=== PATIENT | female | born 1935 | race Caucasian/White ===

== ENCOUNTER 2018-02-11 15:47 | Inpatient (IN) | payer MEDICARE, MEDICAID ==
[~2018-02-11] VITALS: Ht 157.5 cm; Wt 77.6 kg
[~2018-02-11 15:47] MED LIST: ACET-868 PO; ACET650S11 PO; ARIP10TA9 PO; BACL10TA PO; CARB-92 PO; CLOP75TA15 PO; CRAN425C6 PO; DIPH25CA83 PO; DOCU-270 PO; DONE5TAB7 PO; ERGO5000 PO; GABA100C PO; HYDR-3974 PO; LEVE100023 PO; LISI40TA4 PO; MAG355OR18 PO; MAGN400O6 PO; MULT-594 PO; SENN8.6C5 PO; SIMV20TA2 PO; VALP250S22 PO; VITA1CAP9 PO; ZOLP5TAB2 PO
--- NOTE | 2018-02-11 15:55 | NUR ---
PT BIBRA FROM SNF TO ER BED 08. PER REPORT, CONGESTION AND FEVER. PT PLACED ON MONITOR. TACHY W/ FEVER OF 101.3 RECTAL PT. SATTING ON LOW 90'S. HX OF PARKINSONS AND DEMENTIA. AWAITING MD ACEVEDO.
[2018-02-11] MEDS ORDERED: ASPI-1169 PO (15:57)
[2018-02-11] MEDS ORDERED: FAMO-131 PO (15:57)
[2018-02-11] MEDS ORDERED: CARB1TAB21 PO (15:57)
[2018-02-11] MEDS ORDERED: URSO250T11 PO (15:57)
[2018-02-11] MEDS ORDERED: MULT-447 PO (15:57)
[2018-02-11] MEDS ORDERED: POLY17PO4 PO (15:57)
[2018-02-11] MEDS ORDERED: CEFEPIME 1 GM in IV D5W 50 ML IV ONE (16:00)
[2018-02-11] MEDS ORDERED: VANCOMYCIN 1 GM in IV D5W 250 ML IV ONE (16:00)
[2018-02-11] MEDS ORDERED: IV NS 0.9% 1,000 ML BAG IV ONE (16:00)
[2018-02-11] MEDS ORDERED: ACETAMINOPHEN 650 MG/SUPP.RECT RC ONE ×2 (16:00→16:03)
--- NOTE | 2018-02-11 16:00 | NUR ---
DR DIALLO AT BEDSIDE FOR EVAL.
--- NOTE | 2018-02-11 16:14 | NUR ---
IV LINE STARTED BLOOD DRAWN AND SENT TO LAB.
[2018-02-11 16:27] LABS: BASOPHILS # (AUTO) 0.1 /CMM (0.0-0.2); BASOPHILS % (AUTO) 0.9 % (0.0-2.0); HEMATOCRIT 50 % (33-45); HEMOGLOBIN 16.3 g/dL (11.5-14.8); LYMPHOCYTES # (AUTO) 0.3 /CMM (0.8-4.8); LYMPHOCYTES % (AUTO) 2.9 % (20.0-44.0); MEAN CORPUSCULAR HEMOGLOBIN 30 PG (26.0-33.0); MEAN CORPUSCULAR HGB CONC 33 g/dl (31.0-36.0); MEAN CORPUSCULAR VOLUME 93 fL (82-100); MONOCYTES # (AUTO) 0.4 /CMM (0.1-1.30); MONOCYTES % (AUTO) 3.4 % (2.0-12.0); NEUTROPHILS # (AUTO) 11.2 /CMM (1.8-8.9); NEUTROPHILS % (AUTO) 92.8 % (43.0-81.0); PLATELET COUNT (AUTO) 188 /CMM (150-450); RDW COEFFICIENT OF VARIATION 12.6 (11.5-15.0); RED BLOOD CELL COUNT(AUTO) 5.39 MIL/uL (4.0-5.2)
--- NOTE | 2018-02-11 16:28 | NUR ---
CALLED NURSING SUP REQUESTED TELE BED FOR THIS PATIENT.
[2018-02-11 16:39] LABS: CALCIUM, SERUM 9.2 mg/dL (8.5-10.1); CARBON DIOXIDE 27 mmol/L (21-32); CHLORIDE 108 mmol/L (98-107); CREATININE 1.1 mg/dL (0.6-1.3); GLUCOSE 115 mg/dL (74-106); POTASSIUM 3.9 mmol/L (3.5-5.1); SODIUM SERUM 144 mmol/L (136-145); UREA NITROGEN, BLOOD 22 mg/dL (7-18)
[2018-02-11 16:40] LABS: APPEARANCE,URINE Clear (CLEAR); BILIRUBIN,URINE Negative (NEGATIVE); BLOOD, URINE Small Ery/uL (NEGATIVE); COLOR,URINE Yellow (YELLOW); KETONES,URINE Negative (NEGATIVE); LEUKOCYTE ESTERASE ,URINE Trace (NEGATIVE); NITRITE, URINE Positive (NEGATIVE); PH,URINE 5.5 (5.0-8.0); PROTEIN,URINE Trace mg/dl (NEGATIVE); UGLUCOSE Negative (NEGATIVE); UROBILINOGEN,URINE 0.2 EU/dL (0.2)
[2018-02-11 16:41] LABS: INR 1.04 (0.85-1.15)
--- NOTE | 2018-02-11 16:43 | NUR ---
CALLED OFFICE OF DR POLO, MESSAGE SERVICE REFERRED SO TO CALL [employer] [facility].
[2018-02-11 16:50] LABS: ALANINE AMINOTRANSFERASE 16 U/L (12-78); ALBUMIN 3.7 g/dL (3.4-5.0); ALKALINE PHOSPHATASE 154 U/L (46-116); ASPARTATE AMINOTRANSFERASE 16 U/L (15-37); B-TYPE NATRIURETIC PEPTIDE 665 PG/ML (0-125); BILIRUBIN,DIRECT 0.2 mg/dL (0.0-0.2); BILIRUBIN,TOTAL 0.9 mg/dL (0.2-1.0); TOTAL PROTEIN, SERUM 7.3 g/dL (6.4-8.2)
--- NOTE | 2018-02-11 16:50 | NUR ---
[facility] CALLED FOR THIS PATIENT, INTERIOR BLOCK WIRER DR BC BETTS.
[2018-02-11 16:51] LABS: TROPONIN I < 0.017 ng/mL (0.00-0.056)
[2018-02-11 16:58] LABS: BACTERIA,URINE Many /HPF (None Seen); SQUAMOUS EPITHELIAL CELL,UR Few /HPF (None Seen)
[2018-02-11] MEDS ORDERED: IV NS 0.9% 1,000 ML IV PRN (17:13)
--- NOTE | 2018-02-11 17:13 | NUR ---
PT ADMIT TO ROOM 326-2
[2018-02-11] MEDS ORDERED: ENALAPRILAT INJ (1.25 MG/ML) 1.25 MG/ML VIAL IV STA (17:14)
[2018-02-11] MEDS ORDERED: ENALAPRILAT DIHYD. (2.5MG/ML) 1.25 MG/ML VIAL IV ONE (17:26)
[2018-02-11] MEDS ORDERED: MAG HYDROX/AL HYDROX/SIMETH 30 ML UDC PO PRN (17:30)
[2018-02-11] MEDS ORDERED: BACLOFEN (10 MG) 10 MG TABLET PO PRN (17:30)
[2018-02-11] MEDS ORDERED: ACETAMINOPHEN 325 MG TABLET PO PRN ×2 (17:30)
[2018-02-11] MEDS ORDERED: Z GUARD REMEDY 2 OZ OINT TP PRN (17:30)
[2018-02-11] MEDS ORDERED: MAGNESIUM HYDROXIDE 30 ML UDC PO PRN (17:30)
[2018-02-11] MEDS ORDERED: ONDANSETRON HCL/PF 4 MG/2 ML VIAL IVP PRN (17:30)
[2018-02-11] MEDS ORDERED: POLYETHYLENE GLYCOL 3350 17 GM POWD.PACK PO PRN (17:30)
--- NOTE | 2018-02-11 18:39 | NUR ---
DECATING MACHINE OPERATORWAREHOUSE ORDER FILLER NOTES RECEIVED PT FROM ER NURSE IN STABLE CONDITION. PT WILL BE ADMITTED FOR UTI. PT CONFUSED. NO SOB OR ACUTE SIGNS OF DISTRESS NOTED. PT ON 2 L VIA NC AND SATING WELL. TELE LEADS PLACE. PT SR ON THE TELE MONITOR WITH A HR OF 90. BELONGINGS CHECKED BY CYBER SECURITY ENGINEER. BED IN LOW LOCKED POSITION, SIDE RAILS UP X3, CALL LIGHT WITHIN REACH, BED ALARM ON. WILL ENDORSE TO NIGHTSHIFT NURSE TO COMPLETE ADMISSION
--- NOTE | 2018-02-11 19:30 | NUR ---
OIL WELL PUMPER OPENING NOTES RECEIVED PT IN BED AWAKE, RESPONSIVE AND A/O X1,CONFUSED. NO SOB OR ACUTE SIGNS OF DISTRESS NOTED. PT ON 2 L VIA NC. PT SR ON THE TELE MONITOR WITH A HR OF 89. BED IN LOW LOCKED POSITION, SIDE RAILS UP X3, CALL LIGHT WITHIN REACH, BED ALARM ON.WILL COMPLETE ADM. AND MONITOR PT. Addendum: 02/11/18 at 2020 by ANALISA RED RN F/C IN PLACE.
[2018-02-11 20:00] VITALS: BP 134/58
[2018-02-11] MEDS: LEVETIRACETAM (250 MG) 250 MG TABLET PO SCH (21:14)
[2018-02-11] MEDS: ARIPIPRAZOLE 5 MG TABLET PO SCH (21:14)
[2018-02-11] MEDS: DONEPEZIL 5 MG TABLET PO SCH (21:15)
[2018-02-11] MEDS: SENNOSIDES 8.6 MG TABLET PO SCH (21:15)
[2018-02-12 00:08] VITALS: BP 146/118
[2018-02-12 04:34] VITALS: BP 137/74
--- NOTE | 2018-02-12 07:15 | NUR ---
PER DIEM NURSE INITIAL NOTES Report received at bedside. Patient received in bed, intermittently sleeping, easily aroused. On oxygen therapy @2LPM via nasal cannula with no SOB/labored breathing. Not in any type of distress. No facial grimacing/moaning noted. Alas Cath in place. Safety measures in place. Will continue to monitor and assess patient.
--- NOTE | 2018-02-12 07:35 | NUR ---
MORTGAGE CONSULTANT CLOSING NOTES PT IN BED AWAKE, RESPONSIVE AND A/O X1,CONFUSED. NO S/S ACUTE DISTRESS NOTED. PT ON 2 L VIA NC. PT SR ON THE TELE MONITOR WITH A HR OF 89. BED IN LOW LOCKED POSITION, SIDE RAILS UP X3, CALL LIGHT WITHIN REACH, BED ALARM ON. ONGOING NS AT 75 ML/H. WILL ENDORSE TO NEXT SHIFT FOR TONY.
[2018-02-12 08:00] VITALS: BP 151/85
[2018-02-12] MEDS: DOCUSATE SODIUM 100 MG CAPSULE PO SCH ×2 (08:14→17:37)
[2018-02-12] MEDS: LEVETIRACETAM (250 MG) 250 MG TABLET PO SCH ×2 (08:14→21:34)
[2018-02-12] MEDS: MULTIVIT, IRON, MIN NO. 8, FA 1 TAB PO SCH (08:14)
[2018-02-12] MEDS: CARBIDOPA/LEVODOPA 25/100 MG 1 UDTAB PO SCH ×3 (08:14→17:37)
[2018-02-12] MEDS: FAMOTIDINE (20 MG) 20 MG TABLET PO SCH (08:14)
[2018-02-12] MEDS: GABAPENTIN 100 MG CAPSULE PO SCH ×2 (08:14→17:36)
[2018-02-12] MEDS: ASPIRIN 81 MG TAB.CHEW PO SCH (08:14)
[2018-02-12] MEDS: URSODIOL 300 MG CAPSULE PO SCH ×2 (08:48→17:36)
[2018-02-12] MEDS: CEFTRIAXONE 1 G in IV D5W 50 ML IV SCH (08:54)
[2018-02-12] MEDS ORDERED: Medication Not On Formulary EA (Cranberry Extract (Cranberry) 425 MG) PO SCH (09:00)
[2018-02-12 10:38] LABS: BASOPHILS % (AUTO) 0.2 % (0.0-2.0); EOSINOPHILS % (AUTO) 0.2 % (0.0-6.0); HEMATOCRIT 39 % (33-45); HEMOGLOBIN 13.3 g/dL (11.5-14.8); LYMPHOCYTES % (AUTO) 12.2 % (20.0-44.0); MEAN CORPUSCULAR HEMOGLOBIN 32 PG (26.0-33.0); MEAN CORPUSCULAR HGB CONC 34 g/dl (31.0-36.0); MEAN CORPUSCULAR VOLUME 94 fL (82-100); MONOCYTES % (AUTO) 12.4 % (2.0-12.0); NEUTROPHILS # (AUTO) 5.8 /CMM (1.8-8.9); PLATELET COUNT (AUTO) 127 /CMM (150-450); RDW COEFFICIENT OF VARIATION 12.8 (11.5-15.0); RED BLOOD CELL COUNT(AUTO) 4.18 MIL/uL (4.0-5.2); WHITE BLOOD COUNT (AUTO) 7.8 K/uL (4.3-11.0)
[2018-02-12 10:55] LABS: CALCIUM, SERUM 7.9 mg/dL (8.5-10.1); CARBON DIOXIDE 23 mmol/L (21-32); CHLORIDE 115 mmol/L (98-107); CREATININE 0.9 mg/dL (0.6-1.3); GLUCOSE 116 mg/dL (74-106); MAGNESIUM 1.6 mg/dL (1.8-2.4); POTASSIUM 3.3 mmol/L (3.5-5.1); SODIUM SERUM 149 mmol/L (136-145); UREA NITROGEN, BLOOD 14 mg/dL (7-18)
--- NOTE | 2018-02-12 12:51 | NUR ---
MS RN - NOTES Patient is congested, with BNP elevated and low potassium levels. MD aware and ordered to d/c IV fluids.
[2018-02-12] MEDS: Magnesium 1GM/D5W 100ML PREMIX 100 ML IV SCH ×2 (13:23→14:43)
[2018-02-12] MEDS ORDERED: POTASSIUM CHLORIDE 20 MEQ TAB.PRT.SR PO SCH (13:30)
[2018-02-12] MEDS ORDERED: K PHOS NEUTRAL 250 MG TABLET PO ONE (14:00)
[2018-02-12] MEDS ORDERED: NEUTRA PHOS 1 POWD.PACKET PO ONE (14:30)
[2018-02-12 16:00] VITALS: BP 132/82
--- NOTE | 2018-02-12 19:15 | NUR ---
MS RN CLOSING NOTES Report given at bedside. Patient remained in bed, intermittently sleeping, easily aroused. Alert&oriented x1, have episodes of spitting at staff.On antibiotics for UTI. Afebrile. IV on right hand #18g: patent and intact. On continuous oxygen therapy @2LPM via nasal cannula with no SOB/breathing noted. HOB elevated. Turned and repositioned every two hours with bony prominences offloaded. Not in any type of distress. All needs anticipated and met. Bed in locked and lowest position with call light within reach. Endorsed to oncoming shift nurse
--- NOTE | 2018-02-12 19:30 | NUR ---
MS RN OPENING NOTES PT IN BED, RESPONSIVE TO NAME, A/O X1. NO S/S ACUTE DISTRESS NOTED, AFEBRILE. PT ON 2 L VIA NC. BED IN LOW LOCKED POSITION, SIDE RAILS UP X3, CALL LIGHT WITHIN REACH, BED ALARM ON. WILL CONTINUE TO MONITOR
[2018-02-12 20:00] VITALS: BP_SYST 130; BP_SYST 151; BP_DIAS 80; BP_DIAS 83
[2018-02-12] MEDS: HYDROCODONE/APAP 5/325MG 1 EACH TABLET PO PRN (20:03)
[2018-02-12] MEDS: ARIPIPRAZOLE 5 MG TABLET PO SCH (21:33)
[2018-02-12] MEDS: SENNOSIDES 8.6 MG TABLET PO SCH (21:34)
[2018-02-12] MEDS: DONEPEZIL 5 MG TABLET PO SCH (21:34)
--- NOTE | 2018-02-13 07:09 | NUR ---
MS RN CLOSING NOTES PT IN BED SLEEPING, RESPONSIVE AND A/O X1. NO S/S ACUTE DISTRESS NOTED. BED IN LOW LOCKED POSITION, SIDE RAILS UP X3, CALL LIGHT WITHIN REACH, BED ALARM ON. WILL ENDORSE TO NEXT SHIFT FOR TONY.
[2018-02-13 08:00] VITALS: BP 143/75
[2018-02-13 08:00] LABS: CALCIUM, SERUM 8.1 mg/dL (8.5-10.1); CARBON DIOXIDE 22 mmol/L (21-32); CHLORIDE 116 mmol/L (98-107); CREATININE 0.8 mg/dL (0.6-1.3); GLUCOSE 89 mg/dL (74-106); MAGNESIUM 2.1 mg/dL (1.8-2.4); PHOSPHORUS 2.2 mg/dL (2.5-4.9); POTASSIUM 3.7 mmol/L (3.5-5.1); SODIUM SERUM 148 mmol/L (136-145); UREA NITROGEN, BLOOD 11 mg/dL (7-18)
--- NOTE | 2018-02-13 08:00 | NUR ---
m/s mica layer: md visit seen and examined by dr. rooney at this time with no new order.
[2018-02-13 08:06] LABS: EOSINOPHILS % (AUTO) 1.1 % (0.0-6.0); HEMATOCRIT 40 % (33-45); LYMPHOCYTES # (AUTO) 0.8 /CMM (0.8-4.8); LYMPHOCYTES % (AUTO) 16.9 % (20.0-44.0); MEAN CORPUSCULAR HEMOGLOBIN 31 PG (26.0-33.0); MEAN CORPUSCULAR HGB CONC 33 g/dl (31.0-36.0); MEAN CORPUSCULAR VOLUME 94 fL (82-100); MONOCYTES # (AUTO) 0.5 /CMM (0.1-1.30); MONOCYTES % (AUTO) 9.5 % (2.0-12.0); NEUTROPHILS # (AUTO) 3.5 /CMM (1.8-8.9); NEUTROPHILS % (AUTO) 71.5 % (43.0-81.0); PLATELET COUNT (AUTO) 127 /CMM (150-450); RED BLOOD CELL COUNT(AUTO) 4.18 MIL/uL (4.0-5.2); WHITE BLOOD COUNT (AUTO) 4.9 K/uL (4.3-11.0)
[2018-02-13] MEDS: CARBIDOPA/LEVODOPA 25/100 MG 1 UDTAB PO SCH ×4 (08:43→16:53)
[2018-02-13] MEDS: GABAPENTIN 100 MG CAPSULE PO SCH ×2 (08:43→16:53)
[2018-02-13] MEDS: ASPIRIN 81 MG TAB.CHEW PO SCH (08:43)
[2018-02-13] MEDS: URSODIOL 300 MG CAPSULE PO SCH ×3 (08:43→16:54)
[2018-02-13] MEDS: MULTIVIT, IRON, MIN NO. 8, FA 1 TAB PO SCH (08:44)
[2018-02-13] MEDS: DOCUSATE SODIUM 100 MG CAPSULE PO SCH ×3 (08:44→16:53)
[2018-02-13] MEDS: LEVETIRACETAM (250 MG) 250 MG TABLET PO SCH ×3 (09:00→20:12)
[2018-02-13] MEDS: FAMOTIDINE (20 MG) 20 MG TABLET PO SCH (09:14)
[2018-02-13] MEDS: CEFTRIAXONE 1 G in IV D5W 50 ML IV SCH (09:41)
--- NOTE | 2018-02-13 10:00 | NUR ---
m/s metal plater: notes am care rendered, but pt resistive to care, pt alert to self only, keeps spitting out at staff. reality orientation provided prn. also pt refused am meds this morning. turned and repositioned and incontinent care rendered. will continue to monitor.
[2018-02-13] MEDS ORDERED: IV D5W 1,000 ML IV ONE (10:30)
[2018-02-13] MEDS ORDERED: POTASSIUM PHOSPHATE MM 15 MMOL in IV D5W 250 ML IV SCH (10:30)
[2018-02-13] MEDS: POTASSIUM PHOSPHATE MM 7.5 MMOL in IV D5W 100 ML IV SCH ×2 (11:51→14:53)
--- NOTE | 2018-02-13 12:00 | NUR ---
m/s oil dispenser: notes turned and repositioned and kept comfortable. will continue to monitor.
--- NOTE | 2018-02-13 14:00 | NUR ---
m/s grape cutter: notes turned and repositioned, kept comfortable. will continue to monitor.
[2018-02-13 16:00] VITALS: BP 180/100
--- NOTE | 2018-02-13 16:00 | NUR ---
m/s water use inspector: notes pm care rendered by staff. turned and repositioned. reality orientation provided prn. will continue to monitor.
[2018-02-13] MEDS: CLONIDINE HCL 0.1 MG TABLET PO PRN (16:54)
[2018-02-13 18:19] VITALS: BP 153/89
--- NOTE | 2018-02-13 19:20 | NUR ---
m/s analytical lab analyst: notes bedside report given to sher (rn) for continuity of care. no distress. needs attended.
--- NOTE | 2018-02-13 19:20 | NUR ---
MS RN NOTES Received patient A/O X 1, on Vincent's position with O2 inhalation tolerating well @ 2LPM. With paten FC indwelling well with clear yellow urine output @ 50cc. No SOB/respiratory distress noted at this time. Kept bed low and lock, side rails X2 up. Call light within easy reach. With D5 W @ 75ml/hr infusing well 2 peripheral IV line R hand #18, SL. Will continue to monitor accordingly.
[2018-02-13] MEDS: HYDROCODONE/APAP 5/325MG 1 EACH TABLET PO PRN (19:53)
[2018-02-13 20:00] VITALS: BP 158/109
[2018-02-13] MEDS: DONEPEZIL 5 MG TABLET PO SCH (21:27)
[2018-02-13] MEDS: ARIPIPRAZOLE 5 MG TABLET PO SCH (21:28)
[2018-02-13] MEDS: SENNOSIDES 8.6 MG TABLET PO SCH (21:28)
[2018-02-14] MEDS: FAMOTIDINE (20 MG) 20 MG TABLET PO SCH (06:36)
--- NOTE | 2018-02-14 06:42 | NUR ---
MS RN CLOSING NOTES Patient asleep on Fowlers position, with patent peripheral IV line R hand G#18,SL. On O2 inhalation via NC saturating well @ 2LPM, no SOB/respiratory distress noted. On F/C indwelling well with clear yellow urine output at 350cc level, drained by CAN. All due meds given as ordered, PO meds tolerated well with apple sauce. No ASE noted. No new unsualities noted, afebrile the whole shift. Endorsed to the next shift.
--- NOTE | 2018-02-14 07:26 | NUR ---
MS RN OPENING NOTES RECEIVED PATIENT IN STABLE CONDITION. IN NO APPARENT DISTRESS. BEDSIDE RAILS ARE UPX2. BED IS LOCKED AND LOWERED. CALL LIGHT IS WITHIN REACH. IV LINE IS INTACT AND PATENT. WILL CONTINUE TO MONITOR PATIENT.
[2018-02-14 08:00] VITALS: BP 156/120
[2018-02-14 08:14] LABS: CALCIUM, SERUM 8.4 mg/dL (8.5-10.1); CARBON DIOXIDE 22 mmol/L (21-32); CHLORIDE 110 mmol/L (98-107); CREATININE 0.7 mg/dL (0.6-1.3); GLUCOSE 90 mg/dL (74-106); MAGNESIUM 2.1 mg/dL (1.8-2.4); PHOSPHORUS 2.6 mg/dL (2.5-4.9); POTASSIUM 4.1 mmol/L (3.5-5.1); SODIUM SERUM 141 mmol/L (136-145); UREA NITROGEN, BLOOD 10 mg/dL (7-18)
[2018-02-14] MEDS: CARBIDOPA/LEVODOPA 25/100 MG 1 UDTAB PO SCH ×4 (08:46→16:14)
[2018-02-14] MEDS: GABAPENTIN 100 MG CAPSULE PO SCH ×3 (08:46→16:14)
[2018-02-14] MEDS: DOCUSATE SODIUM 100 MG CAPSULE PO SCH ×3 (08:46→16:14)
[2018-02-14] MEDS: ASPIRIN 81 MG TAB.CHEW PO SCH (08:47)
[2018-02-14] MEDS: URSODIOL 300 MG CAPSULE PO SCH ×3 (08:47→16:14)
[2018-02-14] MEDS: LEVETIRACETAM (250 MG) 250 MG TABLET PO SCH ×2 (08:48→21:42)
[2018-02-14] MEDS: MULTIVIT, IRON, MIN NO. 8, FA 1 TAB PO SCH (08:48)
[2018-02-14] MEDS: CEFTRIAXONE 1 G in IV D5W 50 ML IV SCH (08:57)
[2018-02-14 09:06] LABS: HEMATOCRIT 42 % (33-45); MEAN CORPUSCULAR VOLUME 94 fL (82-100); WHITE BLOOD COUNT (AUTO) 5.5 K/uL (4.3-11.0)
[2018-02-14 09:07] LABS: BASOPHILS % (AUTO) 0.5 % (0.0-2.0); MEAN CORPUSCULAR HEMOGLOBIN 32 PG (26.0-33.0); MEAN CORPUSCULAR HGB CONC 34 g/dl (31.0-36.0); MONOCYTES % (AUTO) 9.3 % (2.0-12.0); NEUTROPHILS % (AUTO) 69.2 % (43.0-81.0); PLATELET COUNT (AUTO) 125 /CMM (150-450); RDW COEFFICIENT OF VARIATION 13.3 (11.5-15.0)
[2018-02-14] MEDS: ALBUTEROL FS 2.5 MG/0.5 ML VIAL.NEB NEB SCH ×3 (15:14→23:30)
[2018-02-14] MEDS: IPRATROPIUM NEB FS 0.5 MG/2.5 ML AMPUL.NEB NEB SCH ×3 (15:14→23:30)
[2018-02-14 16:00] VITALS: BP 154/93
--- NOTE | 2018-02-14 18:53 | NUR ---
MS RN CLOSING NOTES PATIENT IS IN STABLE CONDITION. IN NO APPARENT DISTRESS. BEDSIDE RAILS ARE UPX2. BED IS LOCKED AND LOWERED. CALL LIGHT IS WITHIN REACH. IV LINE IS INTACT AND PATENT. WILL ENDORSE CARE TO MAINTENANCE PLUMBER NURSE FOR TONY.
--- NOTE | 2018-02-14 19:20 | NUR ---
MS RN OPENING NOTES Received patient in bed in Vincent's position with O2 inhalation tolerating well @ 2LPM satting @ 94%. a & o x1 with confusion/forgetfulness. Has FC in place with clear yellow urine output, draining well. No SOB/respiratory distress noted at this time. noted with lucian lungs wheezing upon auscultation, on scheduled breathing tx as ordered. will turn/reposition per protocol. iv access to right hand, SL. bed in low and locked position, bed alarm on. side rails X2 up. Call light within easy reach. Will continue to monitor accordingly.
[2018-02-14 20:00] VITALS: BP 157/89
[2018-02-14 20:36] VITALS: BP 157/89
[2018-02-14] MEDS: SENNOSIDES 8.6 MG TABLET PO SCH (21:41)
[2018-02-14] MEDS: DONEPEZIL 5 MG TABLET PO SCH (21:41)
[2018-02-14] MEDS: ARIPIPRAZOLE 5 MG TABLET PO SCH (21:42)
--- NOTE | 2018-02-15 01:33 | NUR ---
MS RN NOTE PATIENT IS SLEEPING AT THIS TIME, NO BEHAVIOR EPISODE, NO SOB, NO ACUTE DISTRESS OR DISCOMFORT NOTED. WHEEZING OF NAIL LUNGS REMAINS THE SAME. BREATHING TX WAS GIVEN BY RT ORDERED. MONITORING CLOSELY.
--- NOTE | 2018-02-15 06:45 | NUR ---
MS RN CLOSING NOTES PATIENT SLEPT WELL @ NIGHT. A & O X 1, CONFUSED/FORGETFUL NO ACUTE CHANGES/NO SOB NOTED.WHEEZING/CONGESTION NOTED. BREATHING TX GIVEN ORDERED. BISHOP CATH IN PLACE, DRAINING CLEAR/YELLOW COLOR URINE. IV ACCESS TO RIGHT HAND, INTACT PATENT, SL. NOTED WITH BEHAVIOR EPISODE, PT TRIED TO SPIT ON NURSE'S FACE. GAVE HER SPACE TO CALM DOWN & IT HELPED BUT PT DOES YELL AT TIMES WHILE AWAKE. ASSISTED WITH TURNING & REPOSITIONING PER PROTOCOL. ALL NEEDS MET. SAFETY MEASURES IN PLACE. BED IN LOW LOCKED POSITION. CALL LIGHT WITHIN REACH. WILL ENDORSE TO AM RN FOR CONTINUITY OF CARE.
[2018-02-15] MEDS: IPRATROPIUM NEB FS 0.5 MG/2.5 ML AMPUL.NEB NEB SCH ×3 (07:28→15:44)
[2018-02-15] MEDS: ALBUTEROL FS 2.5 MG/0.5 ML VIAL.NEB NEB SCH ×3 (07:28→15:44)
--- NOTE | 2018-02-15 07:30 | NUR ---
RECEIVED PT. IN AM ALERT,BUT CONFUSED.SKIN WARM AND DRY.VS STABLE.
[2018-02-15 08:00] VITALS: BP 123/42
[2018-02-15] MEDS ORDERED: ERGOCALCIFEROL (VITAMIN D 2) 50,000 UNIT CAPSULE PO SCH (09:00)
[2018-02-15] MEDS ORDERED: predniSONE 20 MG TABLET PO SCH (09:00)
[2018-02-15] MEDS: DOCUSATE SODIUM 100 MG CAPSULE PO SCH ×2 (10:03→16:59)
[2018-02-15] MEDS: ASPIRIN 81 MG TAB.CHEW PO SCH (10:04)
[2018-02-15] MEDS: MULTIVIT, IRON, MIN NO. 8, FA 1 TAB PO SCH (10:06)
[2018-02-15] MEDS: GABAPENTIN 100 MG CAPSULE PO SCH ×2 (10:07→16:59)
[2018-02-15] MEDS: CARBIDOPA/LEVODOPA 25/100 MG 1 UDTAB PO SCH ×3 (10:07→16:59)
[2018-02-15] MEDS: LEVETIRACETAM (250 MG) 250 MG TABLET PO SCH (10:07)
[2018-02-15] MEDS: URSODIOL 300 MG CAPSULE PO SCH ×2 (10:10→16:58)
[2018-02-15] MEDS: FAMOTIDINE (20 MG) 20 MG TABLET PO SCH (10:14)
[2018-02-15] MEDS: CEFTRIAXONE 1 G in IV D5W 50 ML IV SCH (10:19)
--- NOTE | 2018-02-15 10:30 | NUR ---
PT. APPEARS PLEASED HAS QATARI SPEAKING STUDENT.
[2018-02-15] MEDS: CLONIDINE HCL 0.1 MG TABLET PO PRN (15:48)
--- NOTE | 2018-02-15 15:48 | NUR ---
RECEIVED 1600 VS BP 164/120 HR 96.PT. MEDICATED WITH CATAPRES PO.
[2018-02-15 16:00] VITALS: BP 164/120
--- NOTE | 2018-02-15 16:00 | NUR ---
DR. GOLDBERG IN TO SEE PT.HAS AUDIBLE WHEEZING.SPITS AT TIMES AND CLENCHES FIST WHEN CARE GIVEN.
--- NOTE | 2018-02-15 16:30 | NUR ---
PHOTO TAKEN OF MINIMAL SACRAL REDNESS.
--- NOTE | 2018-02-15 17:15 | NUR ---
RECHECK ON BP 180/100.HRATE 96.STILL WITH AUDIBLE WHEEZING.
--- NOTE | 2018-02-15 17:45 | NUR ---
AMBULANCE HERE FOR INTERNET TECHNOLOGY MANAGER. BP AT THIS TIME 152/76.POX 99%,HRATE 90.REPORT GIVEN TO TAP GRINDER,ALL PAPERS SIGNED INCLUDING BELONGING SHEET.PT. REPORT CALLED TO [facility].RN SPOKE WITH NICOLAS.ADDITIONALLY NICOLAS AWARE THAT HEP LOCK LEFT IN DIFFICULT STICK.AWARE OF 7 DAYS MORE OF ANTIBIOTIC.TAKEN VIA AMB. TO FACILITY.F/C IN PLACE.
== END 2018-02-15 18:07 | DRG 689 ==
LOC: ER 15:49 → TELE 17:17 → MED 02-12 08:52
PROVIDERS: ADMIT Internal Medicine; ATTEND Internal Medicine
DX: N39.0 Urinary tract infection, site not specified (principal); G92 Toxic encephalopathy; I69.354 Hemiplegia and hemiparesis following cerebral infarction affecting left non-dominant side; E87.0 Hyperosmolality and hypernatremia; E78.5 Hyperlipidemia, unspecified; G20 Parkinson's disease; M81.0 Age-related osteoporosis without current pathological fracture; F02.80 Dementia in other diseases classified elsewhere, unspecified severity, without behavioral disturbance, psychotic disturbance, mood disturbance, and anxiety; E55.9 Vitamin D deficiency, unspecified; I10 Essential (primary) hypertension; G62.9 Polyneuropathy, unspecified; F41.9 Anxiety disorder, unspecified; G25.81 Restless legs syndrome; J44.9 Chronic obstructive pulmonary disease, unspecified; F31.9 Bipolar disorder, unspecified; E86.1 Hypovolemia
CPT/HCPCS: 36415; 71045-TC; 80048-TC; 80076-TC; 81000-TC; 83605-TC; 83735-TC; 83880; 84100-TC; 84484-TC; 85025-TC; 85730-TC; 87040-TC; 87081-TC; 87086-TC; 87186-TC; A4606; J0692; J0696; J3370; J3475; J3490; J7030; J7060; J7070; Z7610

== ENCOUNTER 2018-05-17 10:12 | Inpatient (IN) | payer MEDICARE, MEDICAID ==
[~2018-05-17] VITALS: Ht 154.9 cm; Wt 78.9 kg
[~2018-05-17 10:12] MED LIST changes: -ACET650S11 PO; +ASPI-1169 PO; -CARB-92 PO; +CARB1TAB21 PO; -CLOP75TA15 PO; -DIPH25CA83 PO; +FAMO-131 PO; -HYDR-3974 PO; -LISI40TA4 PO; -MAG355OR18 PO; -MAGN400O6 PO; +MULT-447 PO; -MULT-594 PO; +POLY17PO4 PO; -SIMV20TA2 PO; +URSO250T11 PO; -VALP250S22 PO; -VITA1CAP9 PO; -ZOLP5TAB2 PO
--- NOTE | 2018-05-17 10:15 | NUR ---
PT BIB PRIVATE AMBULANCE FOR NOTED N/V X 1, FEVER AND HYPERTENSION, PT IS AAOX0 BUT WITHDRAWS TO PAIN, NOT IN RESPIRATORY DISTRESS, KEPT RESTED AND COMFORTABLE, WILL CONTINUE TO MONITOR.
[2018-05-17] MEDS ORDERED: IV NS 0.9% 1,000 ML BAG IV ONE (10:30)
[2018-05-17] MEDS ORDERED: ONDANSETRON HCL/PF 4 MG/2 ML VIAL IVP ONE (10:30)
[2018-05-17] MEDS ORDERED: ONDANSETRON HCL/PF 4 MG/2 ML VIAL ONE (10:50)
[2018-05-17 11:02] LABS: BASOPHILS % (AUTO) 0.2 % (0.0-2.0); EOSINOPHILS % (AUTO) 0.1 % (0.0-6.0); HEMATOCRIT 46 % (33-45); HEMOGLOBIN 15.3 g/dL (11.5-14.8); LYMPHOCYTES # (AUTO) 0.6 /CMM (0.8-4.8); LYMPHOCYTES % (AUTO) 7.7 % (20.0-44.0); MEAN CORPUSCULAR HGB CONC 33 g/dl (31.0-36.0); MEAN CORPUSCULAR VOLUME 96 fL (82-100); MONOCYTES # (AUTO) 0.4 /CMM (0.1-1.30); MONOCYTES % (AUTO) 4.9 % (2.0-12.0); NEUTROPHILS # (AUTO) 6.8 /CMM (1.8-8.9); NEUTROPHILS % (AUTO) 87.1 % (43.0-81.0); PLATELET COUNT (AUTO) 164 /CMM (150-450); RED BLOOD CELL COUNT(AUTO) 4.84 MIL/uL (4.0-5.2); WHITE BLOOD COUNT (AUTO) 7.8 K/uL (4.3-11.0)
[2018-05-17 11:11] LABS: APPEARANCE,URINE Clear (CLEAR); BILIRUBIN,URINE Negative (NEGATIVE); BLOOD, URINE Negative Ery/uL (NEGATIVE); COLOR,URINE Yellow (YELLOW); KETONES,URINE Trace (NEGATIVE); LEUKOCYTE ESTERASE ,URINE Negative (NEGATIVE); NITRITE, URINE Negative (NEGATIVE); PH,URINE 5.5 (5.0-8.0); PROTEIN,URINE 30 mg/dl (NEGATIVE); UGLUCOSE Negative (NEGATIVE); UROBILINOGEN,URINE 0.2 EU/dL (0.2)
--- NOTE | 2018-05-17 11:15 | NUR ---
LABS DRAWNED, URINE SAMPLE COLLECTED VIA STRAIGHT CATH, RECTAL TUBE INSERTED.
[2018-05-17 11:17] LABS: ALANINE AMINOTRANSFERASE 19 U/L (12-78); ALBUMIN 3.5 g/dL (3.4-5.0); ALKALINE PHOSPHATASE 143 U/L (46-116); ASPARTATE AMINOTRANSFERASE 21 U/L (15-37); BILIRUBIN,DIRECT 0.2 mg/dL (0.0-0.2); BILIRUBIN,TOTAL 0.6 mg/dL (0.2-1.0); CALCIUM, SERUM 8.9 mg/dL (8.5-10.1); CARBON DIOXIDE 25 mmol/L (21-32); CHLORIDE 113 mmol/L (98-107); GLUCOSE 119 mg/dL (74-106); POTASSIUM 3.6 mmol/L (3.5-5.1); SODIUM SERUM 148 mmol/L (136-145); TOTAL PROTEIN, SERUM 6.8 g/dL (6.4-8.2); UREA NITROGEN, BLOOD 22 mg/dL (7-18)
[2018-05-17 11:25] LABS: BACTERIA,URINE None seen /HPF (None Seen); MUCUS,URINE Few /LPF (None Seen); SQUAMOUS EPITHELIAL CELL,UR Moderate /HPF (None Seen); WBC,URINE 0-3 /HPF (0-3)
--- NOTE | 2018-05-17 11:44 | NUR ---
TECH AT BEDSIDE FOR XRAY.
--- NOTE | 2018-05-17 11:47 | NUR ---
PT IS WHEELED TO CT SCAN VIA [facility].
[2018-05-17] MEDS ORDERED: ATOR80TA PO (12:20)
[2018-05-17] MEDS ORDERED: CRAN3875 PO (12:20)
[2018-05-17] MEDS ORDERED: ASPI-1152 PO (12:20)
[2018-05-17] MEDS ORDERED: DONE5TAB7 PO (12:20)
[2018-05-17] MEDS ORDERED: LACT1CAP7 PO (12:20)
--- NOTE | 2018-05-17 12:26 | NUR ---
REPORT GIVEN TO JODIE MERINO. PT AWAITING TRANSFER TO FLOOR.
[2018-05-17] MEDS ORDERED: HYDR-4384 PO (12:29)
[2018-05-17] MEDS ORDERED: ALBU2.5V38 IH (12:29)
[2018-05-17] MEDS ORDERED: IPRA0.2S9 IH (12:29)
[2018-05-17] MEDS ORDERED: MAG30ORA PO (12:29)
[2018-05-17] MEDS ORDERED: CLON0.1T PO (12:29)
[2018-05-17] MEDS ORDERED: LEVOFLOXACIN 750 MG /D5W 150ML 750 MG in PREMIX 1 EA IV SCH ×2 (12:30→14:00)
[2018-05-17] MEDS ORDERED: METRONIDAZOLE 500MG/ NS 100ML 500 MG in PREMIX 1 EA IV SCH (12:30)
[2018-05-17] MEDS ORDERED: LEVOFLOXACIN 750 MG /D5W 150ML 150 ML IV ONE (12:31)
[2018-05-17] MEDS ORDERED: METRONIDAZOLE 500MG/ NS 100ML 100 ML IV ONE (12:31)
--- NOTE | 2018-05-17 12:31 | NUR ---
CALLED [facility] NEPHOROLOGY FINAL INSPECTOR SHUTTLE WAS PAGED.
[2018-05-17] MEDS ORDERED: hydrALAZINE HCL IV 20 MG VIAL ONE (13:12)
[2018-05-17] MEDS: hydrALAZINE HCL IV 20 MG VIAL IV PRN (13:16)
--- NOTE | 2018-05-17 13:19 | NUR ---
CALLED [facility] PROFESSOR OF BIOLOGICAL SCIENCES WAS REPAGED.
[2018-05-17 14:00] VITALS: BP 140/92
--- NOTE | 2018-05-17 14:00 | NUR ---
VP OF DIGITAL MARKETING NOTE PATIENT RECEIVED FROM ER IN [facility] WITH SON, CONFUSED. PATIENT HAS 20 G L HAND SL. PT TACHY READING ON TELE MONITOR 116, UNABLE TO CONFIRM CHEST PAIN. PATIENT SPEAKING IN ARMENIAN AND YELLING. FULL BODY CHECK DONE, RASHES NOTED IN PERINEAL AREA AND BRUISE AVIS. WOUND CONSULT PENDING. EDEMA PRESENT ON THE LEGS PLUS 1. PATIENT WILL BE MONITORED CLOSELY, BED IN LOWEST LOCKED POSITION, SIDE RAILS UP X 2.
[2018-05-17] MEDS ORDERED: POLYETHYLENE GLYCOL 3350 17 GM POWD.PACK PO PRN (15:00)
[2018-05-17] MEDS ORDERED: IPRATROPIUM NEB FS 0.5 MG/2.5 ML AMPUL.NEB IH PRN (15:00)
[2018-05-17] MEDS ORDERED: ACETAMINOPHEN 325 MG TABLET PO PRN (15:00)
[2018-05-17] MEDS ORDERED: MAG HYDROX/AL HYDROX/SIMETH 30 ML UDC PO PRN (15:00)
[2018-05-17] MEDS ORDERED: ERGOCALCIFEROL (VITAMIN D 2) 50,000 UNIT CAPSULE PO SCH (15:00)
[2018-05-17] MEDS ORDERED: BACLOFEN (10 MG) 10 MG TABLET PO PRN (15:00)
[2018-05-17] MEDS ORDERED: ALBUTEROL FS 2.5 MG/0.5 ML VIAL.NEB NEB PRN (15:30)
[2018-05-17 16:00] VITALS: BP_SYST 138; BP_SYST 156; BP_DIAS 55; BP_DIAS 65
--- NOTE | 2018-05-17 16:00 | NUR ---
DOOR CLOSER MECHANIC NOTE SCREAMING SUBSIDES, RN PLACED 18 G PAIGE MIDLINE
[2018-05-17] MEDS: DOCUSATE SODIUM 100 MG CAPSULE PO SCH ×2 (16:23→16:33)
[2018-05-17] MEDS: CARBIDOPA/LEVODOPA 25/100 MG 1 UDTAB PO SCH (16:23)
[2018-05-17] MEDS: GABAPENTIN 100 MG CAPSULE PO SCH (16:23)
[2018-05-17 20:00] VITALS: BP 138/65
[2018-05-17] MEDS: LEVETIRACETAM (250 MG) 250 MG TABLET PO SCH (21:06)
[2018-05-17] MEDS: DONEPEZIL 5 MG TABLET PO SCH (21:06)
[2018-05-17] MEDS: ATORVASTATIN 40 MG TABLET PO SCH (21:07)
[2018-05-17] MEDS: IV D5/ 0.9% NACL 1,000 ML IV PRN (22:57)
[2018-05-18] VITALS (9 sets, daily range): BP systolic 118–159; BP diastolic 55–95
[2018-05-18] MEDS: HYDROCODONE/APAP 5/325MG 1 EACH TABLET PO PRN (01:39)
[2018-05-18 06:33] LABS: BASOPHILS % (AUTO) 0.3 % (0.0-2.0); EOSINOPHILS % (AUTO) 0.9 % (0.0-6.0); HEMATOCRIT 41 % (33-45); HEMOGLOBIN 13.2 g/dL (11.5-14.8); LYMPHOCYTES # (AUTO) 1.1 /CMM (0.8-4.8); LYMPHOCYTES % (AUTO) 28.7 % (20.0-44.0); MEAN CORPUSCULAR HGB CONC 33 g/dl (31.0-36.0); MEAN CORPUSCULAR VOLUME 96 fL (82-100); MONOCYTES # (AUTO) 0.5 /CMM (0.1-1.30); MONOCYTES % (AUTO) 13.7 % (2.0-12.0); NEUTROPHILS # (AUTO) 2.1 /CMM (1.8-8.9); NEUTROPHILS % (AUTO) 56.4 % (43.0-81.0); PLATELET COUNT (AUTO) 133 /CMM (150-450); RED BLOOD CELL COUNT(AUTO) 4.23 MIL/uL (4.0-5.2); WHITE BLOOD COUNT (AUTO) 3.7 K/uL (4.3-11.0)
[2018-05-18 06:55] LABS: CALCIUM, SERUM 8.2 mg/dL (8.5-10.1); CARBON DIOXIDE 23 mmol/L (21-32); CHLORIDE 116 mmol/L (98-107); GLUCOSE 89 mg/dL (74-106); SODIUM SERUM 149 mmol/L (136-145); UREA NITROGEN, BLOOD 18 mg/dL (7-18)
--- NOTE | 2018-05-18 07:47 | NUR ---
TELE/RN NOTES: RECEIVED PT. IN BED W/ HOB ELEVATED . ON TELE MONITOR W/ SR 63. SPEAKS CUBAN. NON VERBAL FOR ME. NPO EXCEPT MEDS. PAIGE MID LINE W/ IFV GOING ON. HAS RECTAL TUBE. NO FACIAL GRIMACES OR MOANING NOTED. WILL CONTINUE TO MONITOR. REPORT GIVEN TO NEXT SHIFT NURSE.
--- NOTE | 2018-05-18 08:00 | NUR ---
MEDICAL MANAGER NOTES PATIENT IN BED RESTING NO SOB OR ACUTE DISTRESS NOTED. PATIENT ALERT, ORIENTED X1 . MIDLINE ON RIGHT UPPER ARM INTACT PATENT. BED IN LOW LOCKED POSITION. CALL LIGHT WITHIN REACH. WILL CONTINUE TO MONITOR.
[2018-05-18] MEDS: ASPIRIN EC 81 MG TABLET.DR PO SCH (08:14)
[2018-05-18] MEDS: FAMOTIDINE (20 MG) 20 MG TABLET PO SCH (08:14)
[2018-05-18] MEDS: MULTIVIT, IRON, MIN NO. 8, FA 1 TAB PO SCH (08:14)
[2018-05-18] MEDS: CARBIDOPA/LEVODOPA 25/100 MG 1 UDTAB PO SCH ×3 (08:14→17:07)
[2018-05-18] MEDS: GABAPENTIN 100 MG CAPSULE PO SCH ×2 (08:14→17:07)
[2018-05-18] MEDS: LACTOBACILLUS RHAMNOSUS GG 1 EACH CAP.SPRINK PO SCH (08:15)
[2018-05-18] MEDS: LEVETIRACETAM (250 MG) 250 MG TABLET PO SCH ×2 (08:15→20:55)
[2018-05-18] MEDS: DOCUSATE SODIUM 100 MG CAPSULE PO SCH ×3 (08:15→17:00)
[2018-05-18] MEDS: IV D5/ 0.9% NACL 1,000 ML IV PRN ×2 (10:25→21:05)
[2018-05-18] MEDS: NYSTATIN TOP POWDER 15 GM BOTTLE TP SCH (17:08)
--- NOTE | 2018-05-18 18:41 | NUR ---
Patient resides at [facility] [phone], has hx of dementia , CVA and Parkinson. Requires assistance with adl's. Current dc plan to return to SNF. Addendum: 05/18/18 at 1842 by MORRIS BARRIGA RN Amended: Links added.
--- NOTE | 2018-05-18 18:51 | NUR ---
FRUIT AND VEGETABLE FACTORY WORKER NOTES PATIENT IN BED RESTING NO SOB OR ACUTE DISTRESS NOTED. ALL DUE MEDICATIONS ADMINISTERED. ALL NEEDS MET. WILL ENDORSE TO PM SHIFT TONY.
--- NOTE | 2018-05-18 19:30 | NUR ---
RECIEVED ALERT TO SELF NO TEETH NOTED SHE YELLS OUT WHEN NEED TO GET NURSES ATTENTION RECTAL BAG EMPTY AT THIS TIME, CHECKED TO SEE IN PLACE .
[2018-05-18] MEDS: URSODIOL 300 MG CAPSULE PO SCH (20:55)
[2018-05-18] MEDS: DONEPEZIL 5 MG TABLET PO SCH (21:40)
[2018-05-18] MEDS: ATORVASTATIN 40 MG TABLET PO SCH (21:40)
[2018-05-18] MEDS: SENNOSIDES/DOCUSATE SODIUM 1 TAB TABLET PO SCH (21:41)
[2018-05-18] MEDS: ARIPIPRAZOLE 5 MG TABLET PO SCH (21:41)
[2018-05-19] VITALS (8 sets, daily range): BP systolic 91–161; BP diastolic 67–95
[2018-05-19] MEDS: IV D5/ 0.9% NACL 1,000 ML IV PRN ×4 (00:32→23:44)
[2018-05-19] MEDS: CLONIDINE HCL 0.1 MG TABLET PO PRN (00:37)
[2018-05-19] MEDS: NYSTATIN TOP POWDER 15 GM BOTTLE TP SCH ×2 (01:10→12:53)
--- NOTE | 2018-05-19 05:41 | NUR ---
ENDING NOTES: RECTAL BAG EMPTY, NO LEAKAGE AROUNG TUBE. MAX ASSIST WHEN BEING REPOSITIONED NYSTATIN PWD USED ON HER ROJAS AREA D/T REDNESS. SWALLOWS W/O PROBLEMS . NOTED YELLS OUT WHEN THIRSY OR NEEDING ASSIST FROM THE NURSE. GOOD EYE CONTACT
--- NOTE | 2018-05-19 07:38 | NUR ---
WOUND CARE CONSULT WOUND CARE RECEIVED CONSULT FOR PERINEAL REDNESS. WOUND CARE WILL DEFER CONSULT AND TREATMENT PLANS TO PLASTIC SURGICAL TEAM THEY ARE CURRENTLY FOLLOWING. PATIENT WITH MARIANA AT 14, ALL PRESSURE ULCER PREVENTION MEASURES ARE NOTED TO BE IN PLACE. WILL SEE PRN.
--- NOTE | 2018-05-19 08:00 | NUR ---
RN NOTES RECEIVED PATIENT IN THE BED BAHAMIAN SPEAKER, PATIENT ON 02 NC AT 2LNC. PATIENT A/O X1/2, REDIRECTABLE. PATIENT HAS NO ACUTE RESPIRATORY DISTRESS. PATIENT TOLERATED CLEAR LIQUID WELL. SCHEDULED MEDICATION ADMINISTERED. ASSIST EATING BY RELASTER. INFUSING D5NS AT 100 ML/HR ON RIGHT UPPER MIDLINE INTACT. PATIENT HAS RECTAL TUBE NO DIARRHEA NOTES, PATIENT INCONTINENT USING DIAPER, ASSIST TURN AND REPOSTION Q 2 HR. 1:1 SITTER NEXT TO THE BED FOR SAFETY. V/S STABLE. SAFETY PRECAUTION MAINTAINED ALL THE TIME.
[2018-05-19] MEDS: LEVETIRACETAM (250 MG) 250 MG TABLET PO SCH ×2 (09:28→21:33)
[2018-05-19] MEDS: GABAPENTIN 100 MG CAPSULE PO SCH ×2 (09:28→17:17)
[2018-05-19] MEDS: LACTOBACILLUS RHAMNOSUS GG 1 EACH CAP.SPRINK PO SCH (09:28)
[2018-05-19] MEDS: URSODIOL 300 MG CAPSULE PO SCH ×2 (09:28→21:30)
[2018-05-19] MEDS: DOCUSATE SODIUM 100 MG CAPSULE PO SCH ×2 (09:29→17:17)
[2018-05-19] MEDS: MULTIVIT, IRON, MIN NO. 8, FA 1 TAB PO SCH (09:29)
[2018-05-19] MEDS: FAMOTIDINE (20 MG) 20 MG TABLET PO SCH (09:29)
[2018-05-19] MEDS: CARBIDOPA/LEVODOPA 25/100 MG 1 UDTAB PO SCH ×3 (09:29→17:17)
[2018-05-19] MEDS: ASPIRIN EC 81 MG TABLET.DR PO SCH (09:29)
--- NOTE | 2018-05-19 13:00 | NUR ---
RN NOTES PATIENT STABLE, SON NEXT TO THE BED, NO ACUTE RESPIRATORY DISTRESS. ASSIST TURN AND REPOSITIONS 2 HR. PATIENT REFUSED PAIN AT THIS TIME. CONTINUED MONITORING.
--- NOTE | 2018-05-19 18:30 | NUR ---
RN NOTES PATIENT STABLE, NO ACUTE RESPIRATORY DISTRESS, V/S STABLE, SCHEDULED MEDICATION ADMINISTERED. ENDORSED ONCOMING NURSE FOR PLAN OF CARE.
--- NOTE | 2018-05-19 20:10 | NUR ---
DRYWALL FOREMAN OPENING NOTES RECEIVED REPORT FROM AM RN. PATIENT A/A/O X1 TO NAME W/ CONFUSION NOTED & MOSTLY TUNISIAN-SPEAKING. BREATHING EVEN & UNLABORED, TOLERATING O2 @ 2LPM VIA NC. NO RESPIRATORY DISTRESS NOTED. ON TELE W/ SINUS RHYTHM W/ BBB, HR 72. RIGHT UPPER ARM MIDLINE INTACT & PATENT W/ DRESSING CDI & IVF D5 NS INFUSING WELL @ 100 ML/HR. DENIES ANY PAIN OR DISCOMFORT @ THIS TIME. SAFETY MEASURES IN PLACE W/ SIDE RAILS UP & BED ALARM ON. WILL CONTINUE TO MONITOR.
[2018-05-19] MEDS: DONEPEZIL 5 MG TABLET PO SCH (21:30)
[2018-05-19] MEDS: ATORVASTATIN 40 MG TABLET PO SCH (21:30)
[2018-05-19] MEDS: SENNOSIDES/DOCUSATE SODIUM 1 TAB TABLET PO SCH (21:30)
[2018-05-19] MEDS: ARIPIPRAZOLE 5 MG TABLET PO SCH (21:30)
[2018-05-20] VITALS: BP 148/117
[2018-05-20] MEDS: NYSTATIN TOP POWDER 15 GM BOTTLE TP SCH ×2 (03:07→13:02)
[2018-05-20] MEDS: HYDROCODONE/APAP 5/325MG 1 EACH TABLET PO PRN ×2 (03:12→09:59)
[2018-05-20 04:00] VITALS: BP 163/109
--- NOTE | 2018-05-20 07:22 | NUR ---
TELE/RN OPENING NOTE THE PATIENT IS RECEIVED IN BED SLEEPING. RESPONSIVE TO VERBAL STIMULI. ALERT AND ORIENTED X1. RECEIVING OXYGEN 3L/MIN VIA NASAL CANULA. RESPIRATION REGULAR AND UNLABORED. PATIENT IN NO APPARENT DISTRESS. RIGHT UPPER ARM MIDLINE PATENT AND D5 MS INFUSING AT 100ML/HR AND NO S/S INFILTRATION NOTED. PATIENT IS ON TELE MONITOR WITH READING OF SB 57 WITH PVC. BED LOW AND LOCKED. SIDE RAILS UP X3. CALL LIIGHT WITHIN REACH. SITTER AT BEDSIDE. WILL CONTINUE TO MONITOR.
[2018-05-20 08:00] VITALS: BP 128/87
[2018-05-20] MEDS: GABAPENTIN 100 MG CAPSULE PO SCH ×2 (09:22→16:00)
[2018-05-20] MEDS: DOCUSATE SODIUM 100 MG CAPSULE PO SCH ×2 (09:22→16:00)
[2018-05-20] MEDS: ASPIRIN EC 81 MG TABLET.DR PO SCH (09:22)
[2018-05-20] MEDS: FAMOTIDINE (20 MG) 20 MG TABLET PO SCH (09:22)
[2018-05-20] MEDS: CARBIDOPA/LEVODOPA 25/100 MG 1 UDTAB PO SCH ×3 (09:22→16:00)
[2018-05-20] MEDS: LACTOBACILLUS RHAMNOSUS GG 1 EACH CAP.SPRINK PO SCH (09:24)
[2018-05-20] MEDS: MULTIVIT, IRON, MIN NO. 8, FA 1 TAB PO SCH (09:24)
[2018-05-20] MEDS: URSODIOL 300 MG CAPSULE PO SCH ×2 (09:25→21:39)
[2018-05-20] MEDS: LEVETIRACETAM (250 MG) 250 MG TABLET PO SCH ×2 (09:25→21:40)
--- NOTE | 2018-05-20 09:59 | NUR ---
TELE/RN NOTE UPON ASSESSMENT NOTED THE PATIENT WITH MODERATE PAIN ABOUT 6/10. REPOSITIONING DONE BUT INEFFECTIVE. SO PRN NORCO 5/325 MG 1 TAB PO GIVEN BY MOUTH. WILL CONTINUE TO MONITOR.
--- NOTE | 2018-05-20 11:00 | NUR ---
TELE/RN NOTE THE PATIENT VERBALIZED RELIEF FROM PAIN AND RATED PAIN 0/10.
[2018-05-20 12:00] VITALS: BP 129/95
--- NOTE | 2018-05-20 13:20 | NUR ---
TEL nurse ,seen by and exam to patient and ok to discharge patient if ok with surgical team left message to Rosalina PÉREZ of Dr.Samuel Tatum # [phone] waiting for call back
--- NOTE | 2018-05-20 13:30 | NUR ---
TEL nurse Rosalina called back and increased to soft diet and if tolerated than patient may be discharge to SNF today
--- NOTE | 2018-05-20 15:49 | NUR ---
TELE/RN NOTE PATEINT`S SON SANTIAGO IS MADE AWARE OF DISCHARGE.
[2018-05-20 16:00] VITALS: BP 136/98
[2018-05-20] MEDS: hydrALAZINE HCL IV 20 MG VIAL IV PRN (18:37)
--- NOTE | 2018-05-20 19:00 | NUR ---
TELE/RN CLOSING NOTE THE PATIENT ALERT AND ORIENTED X1. DENIES SOB. RESPIRATION REGULAR AND UNLABORED RECEIVING OXYGEN 3L/MIN VIA NASAL CANNULA AND SATURATION IS AT 96. DENIES PAIN. PATIENT IN NO APPARENT DISTRESS. PAIGE MIDLINE PATENT AND SALINE LOCKED. BLOOD PRESSURE AFTER APRESOLINE IS 167/72, PULSE 82. PATIENT IN NO APPARENT DISTRESS. BED LOW AND LOCKED. SIDE RAILS UP X3. CALL LIGHT WITHIN REACH. WILL ENDORSE TO SALESPERSON MEN'S AND BOYS' CLOTHING.
[2018-05-20 20:00] VITALS: BP 157/102
--- NOTE | 2018-05-20 20:00 | NUR ---
TELE/RN NOTES: RECEIVED PT. IN BED W/HOB ELEVATED. ON TELE MONITOR W/ SR. INCONTINENT OF B/B. W/ PAIGE MIDLINE PATENT AND INTACT W/ NO S/S OF INFECTION/INFILTRATION NOTED. W/ IVF NOTED. NO FACIAL GRIMACES OR MOANING NOTED. CALL LIGHT W/ REACH. WILL CONTINUE TO MONITOR.
--- NOTE | 2018-05-20 21:20 | NUR ---
RN NOTES DARINEL FROM [facility] CALLED AND INQUIRED REGARDING BP. STILL 157SBP AND DBP OF 102-107; WILL NOT BE ABLE TO GO AT THIS TIME. WILL CONTINUE TO MONITOR. Addendum: 05/20/18 at 2137 by DARION IZAGUIRRE RN ACCIDENTALLY CHARTED ON UNDER CHIP JOHNSTON'S NAME
--- NOTE | 2018-05-20 21:37 | NUR ---
RN NOTES RN JOSE MARIA TENA FROM [facility] CALLED AND INQUIRED REGARDING BP. STILL SBP 157 AND DBP OF 102-107; WILL NOT BE ABLE TO GO AT THIS TIME. WILL CONTINUE TO MONITOR. Addendum: 05/20/18 at 215 by DARION IZAGUIRRE RN 2145 NICKY STICK PULLER NOTIFIED THAT PATIENT WAS NOT DISCHARGED
[2018-05-20] MEDS: ATORVASTATIN 40 MG TABLET PO SCH (21:39)
[2018-05-20] MEDS: SENNOSIDES/DOCUSATE SODIUM 1 TAB TABLET PO SCH (21:40)
[2018-05-20] MEDS: DONEPEZIL 5 MG TABLET PO SCH (21:40)
[2018-05-20] MEDS: ARIPIPRAZOLE 5 MG TABLET PO SCH (21:40)
[2018-05-21] VITALS: BP 156/93
[2018-05-21] MEDS: IV D5/ 0.9% NACL 1,000 ML IV PRN (00:50)
[2018-05-21] MEDS: NYSTATIN TOP POWDER 15 GM BOTTLE TP SCH (01:25)
[2018-05-21 04:00] VITALS: BP 167/103
--- NOTE | 2018-05-21 07:25 | NUR ---
ONCOLOGY SOCIAL WORK OPENING NOTE RECEIVED PATIENT ASLEEP IN BED LOCKED IN LOWEST POSITION WITH SIDERAILS UP x2 FOR SAFETY. ALERT AND ORIENTED x1. LEBANESE SPEAKING. CALL LIGHT WITHIN REACH. SAFETY MEASURES IMPLEMENTED. ON 3L/MIN OF OXYGEN VIA NASAL CANNULA TOLERATING WELL NO SOB OR DISTRESS NOTED. NO FACIAL GRIMACING NOTED FOR PAIN. HAS RIGHT UPPER ARM MIDLINE INTACT AND PATENT NO REDNESS OR SWELLING NOTED WITH IV FLUIDS RUNNING AT 100 ML/HR TOLERATING WELL. TO MONITOR FOR HIGH BLOOD PRESSURE. WILL CONTINUE CONTINUITY OF CARE
--- NOTE | 2018-05-21 07:30 | NUR ---
TELE/RN NOTES: REPORT GIVEN TO NEXT SHIFT NURSE FOR TONY.
[2018-05-21 08:00] VITALS: BP 182/101
[2018-05-21] MEDS: LEVETIRACETAM (250 MG) 250 MG TABLET PO SCH (08:19)
[2018-05-21] MEDS: DOCUSATE SODIUM 100 MG CAPSULE PO SCH (08:19)
[2018-05-21] MEDS: LACTOBACILLUS RHAMNOSUS GG 1 EACH CAP.SPRINK PO SCH (08:19)
[2018-05-21] MEDS: CLONIDINE HCL 0.1 MG TABLET PO PRN (08:20)
[2018-05-21] MEDS: MULTIVIT, IRON, MIN NO. 8, FA 1 TAB PO SCH (08:20)
[2018-05-21] MEDS: FAMOTIDINE (20 MG) 20 MG TABLET PO SCH (08:20)
[2018-05-21] MEDS: CARBIDOPA/LEVODOPA 25/100 MG 1 UDTAB PO SCH (08:20)
[2018-05-21] MEDS: GABAPENTIN 100 MG CAPSULE PO SCH (08:20)
[2018-05-21] MEDS: URSODIOL 300 MG CAPSULE PO SCH (08:20)
[2018-05-21] MEDS: ASPIRIN EC 81 MG TABLET.DR PO SCH (08:28)
--- NOTE | 2018-05-21 08:34 | NUR ---
ABRASIVE WORKER NOTE JET GENTILE GIVEN FOR BP OF 182/101. CHARGE NURSE AWARE. AWARE Addendum: 05/21/18 at 0907 by SHAHBAZ MUNOZ RN BLOOD PRESSURE RECHECKED AFTER MEDICATION ADMINISTRATION. 157/93 P:99
[2018-05-21] MEDS ORDERED: METOPROLOL SUCCINATE 25 MG TAB.SR.24H PO SCH (10:30)
--- NOTE | 2018-05-21 10:52 | NUR ---
AERIAL ADVERTISER NOTE PER DR ALCALA PATIENT CAN BE DISCHARGED IF VITAL SIGNS STABLE
[2018-05-21 10:57] VITALS: BP 138/80
--- NOTE | 2018-05-21 12:24 | NUR ---
ASSURANCE SENIOR MANAGER INSURANCE NOTE REPORT GIVEN TO NANDO AT [facility]. ALL DUE MEDICATINS GIVEN ORDERED. ALL NURSING CARE NEEDS ATTENDED TO NEEDED. PAIGE MIDLINE REMOVED PER RN AT [facility] AND PER MD. SKIN DOCUMENTATION PLACED IN CHART. SPOKE WITH SON(SANTIAGO) TO INFORM ABOUT TRANSFER BACK TO FACILITY. ALERT AND ORIENTED X1. ESTONIAN SPEAKING. ALL DISCHARGE INSTRUCTIONS GIVEN TO RN TRADE SPECIALIST AND SON, BOTH ABLE TO RETURN TEACH BACK. LEFT VIA AMBULANCE NO BELONGINGS.
== END 2018-05-21 12:20 | DRG 394 ==
LOC: ER 10:13 → TELE1 11:55
PROVIDERS: ADMIT Internal Medicine Nephrology; ATTEND Internal Medicine
PROC: 05H633Z Insertion of Infusion Device into Left Subclavian Vein, Percutaneous Approach (ICD-10-PCS; principal; 2018-05-17)
PROC: B547ZZA Ultrasonography of Left Subclavian Vein, Guidance (ICD-10-PCS; 2018-05-17)
DX: K59.39 Other megacolon (principal); K56.7 Ileus, unspecified; E87.0 Hyperosmolality and hypernatremia; I69.354 Hemiplegia and hemiparesis following cerebral infarction affecting left non-dominant side; A08.4 Viral intestinal infection, unspecified; G20 Parkinson's disease; L30.4 Erythema intertrigo; F02.80 Dementia in other diseases classified elsewhere, unspecified severity, without behavioral disturbance, psychotic disturbance, mood disturbance, and anxiety; R13.10 Dysphagia, unspecified; I11.0 Hypertensive heart disease with heart failure; G25.81 Restless legs syndrome; K21.9 Gastro-esophageal reflux disease without esophagitis; G40.909 Epilepsy, unspecified, not intractable, without status epilepticus; E78.5 Hyperlipidemia, unspecified; Z87.440 Personal history of urinary (tract) infections; F29 Unspecified psychosis not due to a substance or known physiological condition; F31.9 Bipolar disorder, unspecified; M81.0 Age-related osteoporosis without current pathological fracture; D25.9 Leiomyoma of uterus, unspecified; Z79.82 Long term (current) use of aspirin; Z79.899 Other long term (current) drug therapy; K83.8 Other specified diseases of biliary tract; Z68.32 Body mass index [BMI] 32.0-32.9, adult; E66.9 Obesity, unspecified; D35.01 Benign neoplasm of right adrenal gland; D35.02 Benign neoplasm of left adrenal gland; K80.20 Calculus of gallbladder without cholecystitis without obstruction; L30.9 Dermatitis, unspecified; M62.462 Contracture of muscle, left lower leg; M62.461 Contracture of muscle, right lower leg
CPT/HCPCS: 36415; 36569; 71045-TC; 74018; 80048-TC; 80076-TC; 81000-TC; 83605-TC; 84484-TC; 85025-TC; 85730-TC; 87040-TC; 87045-TC; 87081-TC; 87086-TC; 87400; 89055; A4216; A4606; G0378; J0360; J1956; J2405; J3490; J7030; J7042; Z7610

== ENCOUNTER 2019-05-29 13:34 | Inpatient (IN) | payer MEDICARE, MEDICAID ==
[~2019-05-29] VITALS: Ht 157.5 cm; Wt 76.2 kg
[~2019-05-29 13:34] MED LIST changes: +ALBU2.5V38 IH; +ASPI-1152 PO; -ASPI-1169 PO; +ATOR80TA PO; +CLON0.1T PO; +CRAN3875 PO; +HYDR-4384 PO; +IPRA0.2S9 IH; +LACT1CAP7 PO; +MAG30ORA PO
--- NOTE | 2019-05-29 13:34 | NUR ---
BIB RA 88 FROM [facility] DUE TO AMS,NARCAN GIVEN INTRANASALLY BY EMS,RR WENT UP FROM 6 TO 16 AND EYES OPENNED AND EYEBALLS STARTED MOVING, PT TO BED 5, -SOB, NAD NOTED, VSS, PENDING MD ACEVEDO
[2019-05-29] MEDS ORDERED: IV NS 0.9% 500 ML BAG IV ONE (15:00)
[2019-05-29 15:06] LABS: BASOPHILS % (AUTO) 0.3 % (0.0-2.0); EOSINOPHILS % (AUTO) 0.8 % (0.0-6.0); HEMATOCRIT 37 % (33-45); HEMOGLOBIN 11.7 g/dL (11.5-14.8); LYMPHOCYTES # (AUTO) 1.1 /CMM (0.8-4.8); LYMPHOCYTES % (AUTO) 18.6 % (20.0-44.0); MEAN CORPUSCULAR HGB CONC 32 g/dl (31.0-36.0); MEAN CORPUSCULAR VOLUME 94 fL (82-100); MONOCYTES # (AUTO) 0.5 /CMM (0.1-1.30); MONOCYTES % (AUTO) 9.2 % (2.0-12.0); NEUTROPHILS # (AUTO) 4.1 /CMM (1.8-8.9); NEUTROPHILS % (AUTO) 71.1 % (43.0-81.0); PLATELET COUNT (AUTO) 346 /CMM (150-450); RED BLOOD CELL COUNT(AUTO) 3.93 MIL/uL (4.0-5.2); WHITE BLOOD COUNT (AUTO) 5.7 K/uL (4.3-11.0)
[2019-05-29 15:16] LABS: CALCIUM, SERUM 8.7 mg/dL (8.5-10.1); POTASSIUM 3.9 mmol/L (3.5-5.1)
[2019-05-29 15:21] LABS: ALBUMIN 2.1 g/dL (3.4-5.0); BILIRUBIN,DIRECT 1.1 mg/dL (0.0-0.2); BILIRUBIN,TOTAL 1.5 mg/dL (0.2-1.0); TOTAL PROTEIN, SERUM 5.9 g/dL (6.4-8.2)
--- NOTE | 2019-05-29 15:30 | NUR ---
PT BACK FROM CT
--- NOTE | 2019-05-29 15:38 | NUR ---
CALLED FOR TELE BED & TURNED IN MOVE SHEET TO ADMITTING.
[2019-05-29 15:54] LABS: APPEARANCE,URINE Cloudy (CLEAR); BILIRUBIN,URINE Negative (NEGATIVE); BLOOD, URINE Negative Ery/uL (NEGATIVE); COLOR,URINE Yellow (YELLOW); KETONES,URINE Negative (NEGATIVE); LEUKOCYTE ESTERASE ,URINE Small (NEGATIVE); NITRITE, URINE Negative (NEGATIVE); PROTEIN,URINE Trace mg/dl (NEGATIVE); UGLUCOSE Negative (NEGATIVE); UROBILINOGEN,URINE 0.2 EU/dL (0.2)
[2019-05-29 16:08] LABS: BACTERIA,URINE Few /HPF (None Seen); RBC,URINE 0-2 /HPF (0-2); SQUAMOUS EPITHELIAL CELL,UR Few /HPF (None Seen); WBC,URINE 51-80 /HPF (0-3); YEAST,URINE Few /HPF (None Seen)
[2019-05-29] MEDS ORDERED: CLOP75TA15 PO (16:10)
[2019-05-29] MEDS ORDERED: PANT40TA2 PO (16:10)
[2019-05-29] MEDS ORDERED: CALC300T4 PO (16:10)
[2019-05-29] MEDS ORDERED: FAMO1TAB29 PO (16:10)
[2019-05-29] MEDS ORDERED: VALS80TA2 PO (16:10)
[2019-05-29] MEDS ORDERED: AMLO10TA4 PO (16:10)
[2019-05-29] MEDS ORDERED: MAGN400O6 PO (16:10)
[2019-05-29] MEDS ORDERED: CEFTRIAXONE 1GM BAG (ER ONLY) 1 GM/50 ML PIGGYBACK IV ONE (17:00)
--- NOTE | 2019-05-29 17:29 | NUR ---
CALLED FOR MS BED
[2019-05-29] MEDS ORDERED: CLONIDINE HCL 0.1 MG TABLET PO PRN (17:30)
[2019-05-29] MEDS ORDERED: HYDROCODONE/APAP 5/325MG 1 EACH TABLET PO PRN (17:30)
[2019-05-29] MEDS ORDERED: MAG HYDROX/AL HYDROX/SIMETH 30 ML UDC PO PRN ×2 (17:30→18:00)
[2019-05-29] MEDS ORDERED: MAGNESIUM HYDROXIDE 30 ML UDC PO PRN ×2 (17:30→18:00)
[2019-05-29] MEDS ORDERED: IPRATROPIUM NEB FS 0.5 MG/2.5 ML AMPUL.NEB IH PRN (17:30)
[2019-05-29] MEDS ORDERED: ALBUTEROL FS 2.5 MG/3 ML VIAL.NEB IH PRN (17:30)
[2019-05-29] MEDS ORDERED: ACETAMINOPHEN 325 MG TABLET PO PRN ×2 (17:30→18:00)
[2019-05-29] MEDS ORDERED: BACLOFEN (10 MG) 10 MG TABLET PO PRN (17:30)
[2019-05-29] MEDS ORDERED: POLYETHYLENE GLYCOL 3350 17 GM POWD.PACK PO PRN (17:30)
[2019-05-29] MEDS ORDERED: CEFTRIAXONE 1GM BAG (ER ONLY) 50 ML IV ONE (17:42)
--- NOTE | 2019-05-29 17:59 | NUR ---
GOT BED 312-2
[2019-05-29] MEDS ORDERED: Z GUARD REMEDY 2 OZ OINT TP PRN (18:00)
[2019-05-29] MEDS ORDERED: ONDANSETRON HCL/PF 4 MG/2 ML VIAL IVP PRN (18:00)
--- NOTE | 2019-05-29 18:05 | NUR ---
REPORT GIVEN TO LOGAN MERINOCAMPUS RECEPTIONIST NURSE FOR TONY; PT WILL BE TRANSPORTED TO 3RD FLOOR
--- NOTE | 2019-05-29 18:57 | NUR ---
PT TRANSPORTED TO 3RD FLOOR
--- NOTE | 2019-05-29 19:05 | NUR ---
BUSINESS SERVICES VICE PRESIDENT NOTE RECEIVED PT IN STABLE CONDITION A/O X2, CURRENTLY IN BED WITH SON AT BEDSIDE. NO SIGNS OF SOB OR DISTRESS, NO INDICATION OF PAIN OR N/V. IV IN RFA #22, IN PLACE. ALL CURRENT NEEDS ATTENDED TO. BED LOW, LOCKED, UPPER RAILS UP AND CALL LIGHT WITHIN REACH. WILL CONT. TO MONITOR.
--- NOTE | 2019-05-29 19:30 | NUR ---
DRIP MOLDER NOTE PT BODY ASSESSED, WITH PHOTOS TAKEN IN CHART. ALL BELONGINGS ACCOUNTED AND SIGNED FOR. PER SON, PT IS TO BE DNR.
[2019-05-29] MEDS: IV D5/0.45 NACL 1,000 ML IV PRN (19:49)
[2019-05-29 21:07] VITALS: BP 102/54
[2019-05-29] MEDS: DONEPEZIL 5 MG TABLET PO SCH (21:27)
[2019-05-29] MEDS: SENNOSIDES/DOCUSATE SODIUM 1 TAB TABLET PO SCH (21:27)
[2019-05-29] MEDS: LEVETIRACETAM (250 MG) 250 MG TABLET PO SCH (21:27)
[2019-05-30] VITALS: BP 136/104
[2019-05-30 04:04] VITALS: BP 157/99
--- NOTE | 2019-05-30 06:07 | NUR ---
JOB CHECKER NOTE PT REMAINS IN STABLE CONDITION A/O X2, CURRENTLY IN BED WITH SON AT BEDSIDE. NO SIGNS OF SOB OR DISTRESS, NO INDICATION OF PAIN OR N/V. IV IN RFA #22, IN PLACE. TELE MONITOR: SINUS W/ BBB 61. ALL CURRENT NEEDS ATTENDED TO. BED LOW, LOCKED, UPPER RAILS UP AND CALL LIGHT WITHIN REACH. WILL ENDORSE TO NEXT SHIFT FOR TONY.
--- NOTE | 2019-05-30 07:15 | NUR ---
DISASTER RECOVERY SPECIALIST NOTE PATIENT RESTING IN BED, NO RESPIRATORY DISTRESS, NO C/O PAIN AT THIS TIME. PATIENT ON LEATHER SOFTENER SR 66. SKIN WARM TO TOUCH, IV D5 1/2 INFUSING AT 75ML/HR, INTACT AND PATENT ON THE RFA #22G, PATIENT'S NEEDS ATTENDED, BED ON LOWEST LOCKED POSITION, CALL LIGHT WITHIN REACH. WILL CONTINUE TO MONITOR.
[2019-05-30 07:45] LABS: BASOPHILS % (AUTO) 0.6 % (0.0-2.0); EOSINOPHILS % (AUTO) 1.8 % (0.0-6.0); HEMATOCRIT 38 % (33-45); LYMPHOCYTES # (AUTO) 1.2 /CMM (0.8-4.8); LYMPHOCYTES % (AUTO) 22.2 % (20.0-44.0); MEAN CORPUSCULAR HGB CONC 32 g/dl (31.0-36.0); MEAN CORPUSCULAR VOLUME 97 fL (82-100); MONOCYTES # (AUTO) 0.6 /CMM (0.1-1.30); MONOCYTES % (AUTO) 11.5 % (2.0-12.0); NEUTROPHILS # (AUTO) 3.5 /CMM (1.8-8.9); NEUTROPHILS % (AUTO) 63.9 % (43.0-81.0); PLATELET COUNT (AUTO) 261 /CMM (150-450); RED BLOOD CELL COUNT(AUTO) 3.88 MIL/uL (4.0-5.2); WHITE BLOOD COUNT (AUTO) 5.4 K/uL (4.3-11.0)
[2019-05-30 08:00] VITALS: BP 167/88
[2019-05-30 08:09] LABS: CALCIUM, SERUM 8.4 mg/dL (8.5-10.1); CREATININE 0.9 mg/dL (0.6-1.3); MAGNESIUM 1.9 mg/dL (1.8-2.4); PHOSPHORUS 2.6 mg/dL (2.5-4.9); POTASSIUM 4.2 mmol/L (3.5-5.1)
[2019-05-30] MEDS: ASPIRIN EC 81 MG TABLET.DR PO SCH (08:18)
[2019-05-30] MEDS: AMLODIPINE BESYLATE 10 MG TABLET PO SCH (08:18)
[2019-05-30] MEDS: DOCUSATE SODIUM 100 MG CAPSULE PO SCH ×2 (08:18→16:14)
[2019-05-30] MEDS: CLOPIDOGREL BISULFATE 75 MG TABLET PO SCH (08:19)
[2019-05-30] MEDS: LEVETIRACETAM (250 MG) 250 MG TABLET PO SCH ×2 (08:19→21:39)
[2019-05-30] MEDS: PANTOPRAZOLE 40 MG TABLET.DR PO SCH (08:19)
[2019-05-30] MEDS: GABAPENTIN 100 MG CAPSULE PO SCH ×2 (08:19→16:14)
[2019-05-30] MEDS: CARBIDOPA/LEVODOPA 25/100 MG 1 UDTAB PO SCH ×3 (08:19→16:14)
[2019-05-30] MEDS: ATORVASTATIN 40 MG TABLET PO SCH (08:36)
[2019-05-30] MEDS ORDERED: ATORVASTATIN 40 MG TABLET PO SCH (09:00)
[2019-05-30] MEDS: URSODIOL 300 MG CAPSULE PO SCH ×2 (09:28→16:14)
[2019-05-30 16:00] VITALS: BP 125/74
--- NOTE | 2019-05-30 18:40 | NUR ---
M/S RN NOTES PATIENT RESTING IN BED, NO RESPIRATORY DISTRESS, NO C/O PAIN AT THIS TIME. PATIENT'S SKIN WARM TO TOUCH. PATIENT'S NEEDS ATTENDED. BED ON LOWEST LOCKED POSITION, CALL LIGHT WITHIN REACH. WILL ENDORSE TO ONCOMING NURSE.
[2019-05-30] MEDS: CEFTRIAXONE 1 G in IV D5W 50 ML IV SCH (18:42)
--- NOTE | 2019-05-30 20:31 | NUR ---
MS RN NOTES RECEIVED PATIENT ASLEEP IN BED WITH NO DISTRESS NOTED. CALL LIGHT WITHIN REACH. PERIPHERAL LINE INFILTRATED, UNABLE TO ESTABLISH LINE. CALLED NEPHRO GROUP TO OBTAIN MIDLINE ORDER. AWAITING CALL BACK FROM INTERNAL AFFAIRS INVESTIGATOR MD. ROOM FREE OF CLUTTER AND BELONGINGS KEPT NEAR BEDSIDE. BED IN LOW LOCK SETTING WITH BED ALARM ON AND FUNCTIONING PROPERLY. WILL CONTINUE TO MONITOR.
[2019-05-30] MEDS: DONEPEZIL 5 MG TABLET PO SCH (21:39)
[2019-05-30] MEDS: SENNOSIDES/DOCUSATE SODIUM 1 TAB TABLET PO SCH (21:39)
[2019-05-30] MEDS: IV D5/0.45 NACL 1,000 ML IV PRN (21:39)
--- NOTE | 2019-05-31 07:15 | NUR ---
MS RN NOTES PATIENT ASLEEP IN BED WITH NO DISTRESS NOTED. CALL LIGHT WITHIN REACH. NO FACIAL GRIMACING OR GROANING TO INDICATE PAIN OR DISCOMFORT. ALL DUE MEDS GIVEN ORDERED WITH NO ASE. PERIPHERAL LINES INTACT AND PATENT. BED IN LOW LOCK SETTING. ROOM FREE OF CLUTTER AND BELONGINGS KEPT NEAR BEDSIDE. WILL ENDORSE TO ONCOMING SHIFT.
--- NOTE | 2019-05-31 07:37 | NUR ---
RN OPENING NOTES Patient received on 2l nasal cannula, no sob noted, patient shows no s/s of pain at this time. Patient remains a/o x1, with L shoulder 22 SL and R foot 22 with D5 1/2 NS @ 75 ml per hour IVF. Patient DNR. Bed at the lowest setting, call light within reach, side rails up x2.
[2019-05-31 08:00] VITALS: BP 139/85
[2019-05-31] MEDS: CARBIDOPA/LEVODOPA 25/100 MG 1 UDTAB PO SCH ×3 (08:30→16:05)
[2019-05-31] MEDS: GABAPENTIN 100 MG CAPSULE PO SCH (08:30)
[2019-05-31] MEDS: ASPIRIN EC 81 MG TABLET.DR PO SCH (08:30)
[2019-05-31] MEDS: PANTOPRAZOLE 40 MG TABLET.DR PO SCH (08:30)
[2019-05-31] MEDS: DOCUSATE SODIUM 100 MG CAPSULE PO SCH ×2 (08:30→16:05)
[2019-05-31] MEDS: CLOPIDOGREL BISULFATE 75 MG TABLET PO SCH (08:30)
[2019-05-31] MEDS: ATORVASTATIN 40 MG TABLET PO SCH (08:30)
[2019-05-31] MEDS: LEVETIRACETAM (250 MG) 250 MG TABLET PO SCH ×2 (08:30→22:26)
[2019-05-31] MEDS: AMLODIPINE BESYLATE 10 MG TABLET PO SCH (08:31)
[2019-05-31] MEDS: URSODIOL 300 MG CAPSULE PO SCH ×2 (08:32→16:05)
[2019-05-31 08:44] LABS: BASOPHILS % (AUTO) 0.3 % (0.0-2.0); CALCIUM, SERUM 7.9 mg/dL (8.5-10.1); CREATININE 0.9 mg/dL (0.6-1.3); EOSINOPHILS % (AUTO) 1.5 % (0.0-6.0); HEMATOCRIT 35 % (33-45); HEMOGLOBIN 11.3 g/dL (11.5-14.8); LYMPHOCYTES % (AUTO) 18.8 % (20.0-44.0); MAGNESIUM 1.7 mg/dL (1.8-2.4); MEAN CORPUSCULAR HGB CONC 32 g/dl (31.0-36.0); MEAN CORPUSCULAR VOLUME 93 fL (82-100); MONOCYTES # (AUTO) 0.4 /CMM (0.1-1.30); MONOCYTES % (AUTO) 8.4 % (2.0-12.0); NEUTROPHILS # (AUTO) 3.7 /CMM (1.8-8.9); PLATELET COUNT (AUTO) 291 /CMM (150-450); POTASSIUM 4.1 mmol/L (3.5-5.1); RED BLOOD CELL COUNT(AUTO) 3.78 MIL/uL (4.0-5.2); WHITE BLOOD COUNT (AUTO) 5.2 K/uL (4.3-11.0)
[2019-05-31] MEDS: Magnesium 1GM/D5W 100ML PREMIX 100 ML IV SCH ×2 (12:26→13:49)
[2019-05-31] MEDS: FLUCONAZOLE (100 MG) 100 MG TABLET PO SCH (12:42)
[2019-05-31] MEDS ORDERED: K PHOS NEUTRAL 250 MG TABLET PO ONE (13:00)
[2019-05-31] MEDS: CLOTRIMAZOLE/BETAMETASONE DIPROPIONATE 15 GM TUBE TP SCH ×2 (15:17→16:12)
[2019-05-31] MEDS: SILVER SULFADIAZINE CREAM 25 GM TUBE TP SCH (15:18)
[2019-05-31] MEDS: HYDROCORTISONE 1% CREAM 28.35 GM TUBE TP SCH ×2 (15:18→16:12)
[2019-05-31 16:00] VITALS: BP 104/70
[2019-05-31] MEDS: IV D5/0.45 NACL 1,000 ML IV PRN (16:55)
[2019-05-31] MEDS: CEFTRIAXONE 1 G in IV D5W 50 ML IV SCH (17:45)
--- NOTE | 2019-05-31 18:01 | NUR ---
RN CLOSING NOTES Patient remains on 2l nasal cannula at this time, no sob noted. Patient a/o x1 at this time. Pureed diet. L shoulder 22 and right foot 22 and d5 1/2 ns @ 75 ml per hour. Bed at the lowest setting, call light within reach, side rails up x2. Will give report to NOC RN for TONY bedside.
--- NOTE | 2019-05-31 19:57 | NUR ---
MS RN OPENING NOTES PATIENT SLEEPING IN BED. A/O X 1. OPENS EYES TO TOUCH AND VERBAL RESPONSES. ON 2L NC. NO S/S OF SOB OR ANY DISTRESS AT THIS TIME. IV PRESENT ON LEFT SHOULDER, SIZE 22, INTACT & PATENT, HEP LOCKED. IV PRESENT ON RIGHT FOOT, SIZE 22, INTACT & PATENT, ROCEPHIN 1G RUNNING AT 100 ML/HR. BED LOCKED, SEMI-MEJIA'S POSITION, ARMS AND FEET OFFLOADING WITH PILLOW BILATERALLY, SIDE RAILS X2, CALL LIGHT WITHIN REACH. WILL CONTINUE TO MONITOR.
[2019-05-31 20:00] VITALS: BP 104/70
[2019-05-31 22:00] VITALS: BP 130/68
[2019-05-31] MEDS: SENNOSIDES/DOCUSATE SODIUM 1 TAB TABLET PO SCH (22:26)
[2019-05-31] MEDS: DONEPEZIL 5 MG TABLET PO SCH (22:26)
--- NOTE | 2019-06-01 01:00 | NUR ---
MS RN NOTES PATIENT SLEEPING IN BED. NO SOB OR DISTRESS NOTED. BED LOCKED, SEMI-MEJIA'S POSITION, SIDE RAILS X2. WILL CONTINUE TO MONITOR.
--- NOTE | 2019-06-01 06:46 | NUR ---
MS RN CLOSING NOTES PATIENT SLEEPING IN BED. A/O X1. ON 2L NC. NO S/S OF SOB OR ANY DISTRESS AT THIS TIME. IV ON LEFT SHOULDER, SIZE 22, INTACT & PATENT, HEP LOCKED. IV ON RIGHT FOOT, SIZE 22, INTACT & PATENT WITH D5 1/2 NS RUNNING AT 75 ML/HR. BED LOCKED, SEMI-MEJIA'S POSITION, SIDE RAILS X2 AND PADDED FOR SEIZURE PRECAUTION, CALL LIGHT WITHIN REACH. WILL ENDORSE TO DAY SHIFT NURSE TO FOLLOW PLAN OF CARE.
[2019-06-01 07:07] LABS: BASOPHILS % (AUTO) 0.6 % (0.0-2.0); EOSINOPHILS % (AUTO) 0.8 % (0.0-6.0); HEMATOCRIT 34 % (33-45); HEMOGLOBIN 10.8 g/dL (11.5-14.8); LYMPHOCYTES # (AUTO) 1.1 /CMM (0.8-4.8); LYMPHOCYTES % (AUTO) 17.9 % (20.0-44.0); MEAN CORPUSCULAR HGB CONC 32 g/dl (31.0-36.0); MEAN CORPUSCULAR VOLUME 94 fL (82-100); MONOCYTES # (AUTO) 0.5 /CMM (0.1-1.30); MONOCYTES % (AUTO) 7.7 % (2.0-12.0); NEUTROPHILS # (AUTO) 4.6 /CMM (1.8-8.9); PLATELET COUNT (AUTO) 305 /CMM (150-450); RED BLOOD CELL COUNT(AUTO) 3.59 MIL/uL (4.0-5.2); WHITE BLOOD COUNT (AUTO) 6.2 K/uL (4.3-11.0)
[2019-06-01 07:43] LABS: CALCIUM, SERUM 8.1 mg/dL (8.5-10.1); CREATININE 0.9 mg/dL (0.6-1.3); MAGNESIUM 2.1 mg/dL (1.8-2.4); PHOSPHORUS 2.2 mg/dL (2.5-4.9); POTASSIUM 3.9 mmol/L (3.5-5.1)
--- NOTE | 2019-06-01 07:52 | NUR ---
MS RN OPENING NOTES RECEIVED PATIENT IN BED, ASLEEP. PER LEAD PRESS OPERATOR NURSE, PATIENT A/O X 1. PATIENT ON OXYGEN THERAPY ON 2L NC. BREATHING IS EVEN AND UNLABORED. NO SOB NOTED AT THIS TIME. IV ON LEFT SHOULDER GAUGE 22 PRESENT, INTACT & PATENT. ALSO IV ON RIGHT FOOT GAUGE 22, INTACT & PATENT WITH D5 1/2 NS RUNNING AT 75 ML/HR. SAFETY PRECAUTIONS IN PLACE: BED IN LOW POSITION AND LOCKED, RAILS UP X2 AND PADDED FOR SEIZURE PRECAUTION, CALL LIGHT WITHIN REACH. WILL CONTINUE TO MONITOR PATIENT.
[2019-06-01 08:00] VITALS: BP 141/88
[2019-06-01 09:00] VITALS: BP 139/79
[2019-06-01] MEDS: URSODIOL 300 MG CAPSULE PO SCH ×2 (09:00→09:51)
[2019-06-01] MEDS: PANTOPRAZOLE 40 MG TABLET.DR PO SCH (09:00)
[2019-06-01] MEDS: SILVER SULFADIAZINE CREAM 25 GM TUBE TP SCH ×2 (09:00→09:52)
[2019-06-01] MEDS: FLUCONAZOLE (100 MG) 100 MG TABLET PO SCH (09:00)
[2019-06-01] MEDS: HYDROCORTISONE 1% CREAM 28.35 GM TUBE TP SCH ×2 (09:00→09:52)
[2019-06-01] MEDS: DOCUSATE SODIUM 100 MG CAPSULE PO SCH ×2 (09:00→09:51)
[2019-06-01] MEDS: ASPIRIN EC 81 MG TABLET.DR PO SCH (09:00)
[2019-06-01] MEDS: LEVETIRACETAM (250 MG) 250 MG TABLET PO SCH ×2 (09:00→09:51)
[2019-06-01] MEDS: CLOPIDOGREL BISULFATE 75 MG TABLET PO SCH (09:00)
[2019-06-01] MEDS: AMLODIPINE BESYLATE 10 MG TABLET PO SCH (09:00)
[2019-06-01] MEDS: CLOTRIMAZOLE/BETAMETASONE DIPROPIONATE 15 GM TUBE TP SCH ×2 (09:00→09:52)
[2019-06-01] MEDS: CARBIDOPA/LEVODOPA 25/100 MG 1 UDTAB PO SCH ×2 (09:00→12:38)
[2019-06-01] MEDS: ATORVASTATIN 40 MG TABLET PO SCH (09:00)
[2019-06-01] MEDS ORDERED: FLUC100T8 PO (10:35)
--- NOTE | 2019-06-01 11:29 | NUR ---
WOUND CARE CONSULT: PT FOLLOWED BY SURGICAL AND PODIATRY TEAMS FOR WOUND CARE. DEFER TO SURGICAL TEAMS FOR WOUND TREATMENT PLAN. DISCUSSED SKIN PROTECTION WITH NURSING STAFF. WILL SEE PRN.
[2019-06-01] MEDS ORDERED: NEUTRA PHOS 1 POWD.PACKET PO ONE (15:00)
--- NOTE | 2019-06-01 15:29 | NUR ---
MS DENTAL PROFESSIONAL NOTES PATIENT DISCHARGED TO [facility] VIA RNEY ACCOMPANIED BY 2 clinical staff pharmacist AT 1525. PATIENT A/O X 1, DISCHARGED IN MEDICALLY STABLE CONDITION. NO SIGNS OF PAIN OR DISCOMFORT PRESENT AT DISCHARGE. PATIENT ON 2 LPM NASAL CANULA WITH NO SOB NOTED. 2 IV LINES AND WRISTBANDS REMOVED. RACHAEL, ADMITTING NURSE, FROM [facility], WAS CONTACTED AND DISCHARGE INSTRUCTIONS WERE GIVEN VIA PHONE REGARDING THE PATIENT. SKIN CHECK DONE. PICTURES TAKEN AND FILED.
== END 2019-06-01 15:35 | DRG 757 ==
LOC: ER 13:38 → TELE 18:03 → MED 05-30 09:39
PROVIDERS: ADMIT Internal Medicine; ATTEND Internal Medicine
DX: B37.49 Other urogenital candidiasis (principal); E43 Unspecified severe protein-calorie malnutrition; G93.41 Metabolic encephalopathy; I69.354 Hemiplegia and hemiparesis following cerebral infarction affecting left non-dominant side; E87.0 Hyperosmolality and hypernatremia; I10 Essential (primary) hypertension; E86.0 Dehydration; F02.80 Dementia in other diseases classified elsewhere, unspecified severity, without behavioral disturbance, psychotic disturbance, mood disturbance, and anxiety; G20 Parkinson's disease; D63.8 Anemia in other chronic diseases classified elsewhere; G40.909 Epilepsy, unspecified, not intractable, without status epilepticus; M81.0 Age-related osteoporosis without current pathological fracture; G25.81 Restless legs syndrome; E88.09 Other disorders of plasma-protein metabolism, not elsewhere classified; M62.50 Muscle wasting and atrophy, not elsewhere classified, unspecified site; Z68.30 Body mass index [BMI] 30.0-30.9, adult; M24.571 Contracture, right ankle; M24.572 Contracture, left ankle; S90.822A Blister (nonthermal), left foot, initial encounter; X58.XXXA Exposure to other specified factors, initial encounter; Y93.9 Activity, unspecified; Y92.129 Unspecified place in nursing home as the place of occurrence of the external cause; L30.4 Erythema intertrigo; L89.156 Pressure-induced deep tissue damage of sacral region; R21 Rash and other nonspecific skin eruption; E86.1 Hypovolemia; F32.9 Major depressive disorder, single episode, unspecified; F41.9 Anxiety disorder, unspecified
CPT/HCPCS: 36415; 70450-TC; 71045-TC; 80048-TC; 80076-TC; 80305; 81000-TC; 83605-TC; 83735-TC; 84100-TC; 85025-TC; 87081-TC; 87086-TC; 95819-TC; G0378; J0696; J3475; J3490; J7030; J7040; J7060

== ENCOUNTER 2019-07-12 10:31 | Inpatient (IN) | payer MEDICARE, MEDICAID ==
[~2019-07-12] VITALS: Ht 152.4 cm; Wt 64.2 kg
[~2019-07-12 10:31] MED LIST changes: +AMLO10TA4 PO; -BACL10TA PO; +CALC300T4 PO; +CLOP75TA15 PO; -FAMO-131 PO; +FAMO1TAB29 PO; +FLUC100T8 PO; -GABA100C PO; +MAGN400O6 PO; +PANT40TA2 PO; +VALS80TA2 PO
[2019-07-12] MEDS ORDERED: AMIN30LI27 PO (10:45)
[2019-07-12] MEDS ORDERED: ACET-868 PO (10:45)
[2019-07-12] MEDS ORDERED: ASPI-1169 PO (10:45)
[2019-07-12] MEDS ORDERED: CALC500T63 PO (10:45)
--- NOTE | 2019-07-12 10:48 | NUR ---
dr gonsalez at bedside for eval.
[2019-07-12] MEDS ORDERED: methylPREDNISolone SOD SUCC 125 MG/2ML VIAL ONE (11:07)
--- NOTE | 2019-07-12 11:08 | NUR ---
radiology at bedside for chest xray.
--- NOTE | 2019-07-12 11:19 | NUR ---
MOVE SHEET SUBMITTED AND CALLED FOR TELE BED
[2019-07-12 11:30] LABS: BASOPHILS % (AUTO) 0.3 % (0.0-2.0); EOSINOPHILS % (AUTO) 0.8 % (0.0-6.0); HEMATOCRIT 39 % (33-45); HEMOGLOBIN 11.8 g/dL (11.5-14.8); LYMPHOCYTES % (AUTO) 25.2 % (20.0-44.0); MEAN CORPUSCULAR HGB CONC 30 g/dl (31.0-36.0); MEAN CORPUSCULAR VOLUME 101 fL (82-100); MONOCYTES # (AUTO) 0.6 /CMM (0.1-1.30); MONOCYTES % (AUTO) 6.9 % (2.0-12.0); NEUTROPHILS # (AUTO) 5.4 /CMM (1.8-8.9); NEUTROPHILS % (AUTO) 66.8 % (43.0-81.0); PLATELET COUNT (AUTO) 161 /CMM (150-450); RED BLOOD CELL COUNT(AUTO) 3.92 MIL/uL (4.0-5.2)
[2019-07-12] MEDS ORDERED: methylPREDNISolone SOD SUCC 125 MG/2ML VIAL IV ONE (11:30)
[2019-07-12] MEDS ORDERED: IPRATROPIUM NEB FS 0.5 MG/2.5 ML AMPUL.NEB NEB ONE (11:30)
[2019-07-12] MEDS ORDERED: ALBUTEROL FS 2.5 MG/0.5 ML VIAL.NEB NEB ONE (11:30)
[2019-07-12] MEDS ORDERED: ALBUTEROL FS 2.5 MG/0.5 ML VIAL.NEB ONE (11:33)
[2019-07-12] MEDS ORDERED: IPRATROPIUM NEB FS 0.5 MG/2.5 ML AMPUL.NEB ONE (11:33)
--- NOTE | 2019-07-12 11:47 | NUR ---
GOT BED 307-1
[2019-07-12 11:51] LABS: ALANINE AMINOTRANSFERASE < 6 U/L (12-78); ALBUMIN 2.6 g/dL (3.4-5.0); ALKALINE PHOSPHATASE 150 U/L (46-116); ASPARTATE AMINOTRANSFERASE 22 U/L (15-37); B-TYPE NATRIURETIC PEPTIDE 421 PG/ML (0-125); BILIRUBIN,DIRECT 0.2 mg/dL (0.0-0.2); BILIRUBIN,TOTAL 0.5 mg/dL (0.2-1.0); CALCIUM, SERUM 9.4 mg/dL (8.5-10.1); CARBON DIOXIDE 25 mmol/L (21-32); CREATININE 1.6 mg/dL (0.6-1.3); GLUCOSE 105 mg/dL (74-106); POTASSIUM 3.7 mmol/L (3.5-5.1); TOTAL PROTEIN, SERUM 6.4 g/dL (6.4-8.2); UREA NITROGEN, BLOOD 47 mg/dL (7-18)
[2019-07-12 11:57] LABS: CHLORIDE 141 mmol/L (98-107); SODIUM SERUM 177 mmol/L (136-145)
[2019-07-12] MEDS ORDERED: LEVOFLOXACIN 500 MG /D5W 100ML 100 ML IV ONE (11:58)
[2019-07-12] MEDS ORDERED: LEVOFLOXACIN 500 MG /D5W 100ML 500 MG/100 ML PIGGYBACK IV ONE (12:00)
[2019-07-12] MEDS ORDERED: IV D5W 1,000 ML IV ONE (12:00)
--- NOTE | 2019-07-12 12:20 | NUR ---
report given to arun quinn. awaiting transfer to floor.
--- NOTE | 2019-07-12 12:45 | NUR ---
ADMIT TO TELE RECEIVED PT FROM ER, BROUGHT IN VIA GURNEY BY NURSE DONELL. PT WITH ADMITTING DX OF PNA, HYPOXIA, AND DESAT. PT IS ALERT AND ORIENTED X1. PT RESPONSIVE TO VERBAL AND TACTILE STIMULI, HOWEVER, SHE DOES NOT ANSWER ANY OF MY QUESTIONS, AND IS NOT ABLE TO FOLLOW ANY OF MY COMMANDS. ACCORDING TO THE PAPERWORKS FROM [facility]. SHE IS UZBEK SPEAKING. RESP EVEN AND UNLABORED. PT SATURATING AT 97% ON 4L OF O2. PT WAS HVAC INSTALLATION TECHNICIAN ON APPEALS SPECIALIST. WITH A NORMAL SINUS RHYTHM HR IS 84. PT CAME FROM [facility]. IV SITE NOTED ON L HAND #20. INTACT AND PATENT. IV FLUIDS RUNNING D5W AT 100ML/HR. TOLERATING IV FLUIDS WELL. LEVAQUIN IVPB CURRENTLY RUNNING AT THIS TIME. COMPLETE HEAD TO TOE ASSESSMENT DONE WELL BODY CHECK. PT NOTED WITH REDNESS ON SACRAL AREA. VS CHECKED NOTED AT BP= 110/62, T= 97.6, RR= 19, P=84, O2 SAT= 97% ON 4L OF O2. WILL CONTINUE TO MONITOR.
[2019-07-12 13:00] VITALS: BP_SYST 102; BP_SYST 110; BP_DIAS 62
--- NOTE | 2019-07-12 13:00 | NUR ---
PAGED MD FOR ADMISSION ORDERS CALLED MD DR CORTES TO VERIFY ADMISSION ORDERS. AWAITING FOR CALL BACK.
--- NOTE | 2019-07-12 13:54 | NUR ---
ADMISSION ORDERS ALSO PER DR CORTES, CONTINUE PTS PREVIOUS DIET FROM SNF (PUREED WITH NECTAR THICK LIQUIDS) AND RESUME ALL MEDS FROM SNF.
--- NOTE | 2019-07-12 13:54 | NUR ---
CALLED BACK DR CORTES CALLED BACK AND GAVE ADMISSION ORDERS. PER DR CORTES, START PT ON LEVAQUIN 500MG IVPB X 7DAYS, ALBUTEROL/ATROVENT BREATHING TX, AND CBC, CMP AND CXRAY IN AM. ALL ORDERS NOTED AND CARRIED OUT.
[2019-07-12] MEDS ORDERED: ALBUTEROL FS 2.5 MG/0.5 ML VIAL.NEB NEB PRN (14:30)
[2019-07-12] MEDS ORDERED: LEVOFLOXACIN 500 MG /D5W 100ML 500 MG in PREMIX 1 EA IV SCH (14:30)
[2019-07-12] MEDS ORDERED: IPRATROPIUM NEB FS 0.5 MG/2.5 ML AMPUL.NEB IH PRN (15:00)
[2019-07-12] MEDS ORDERED: ACETAMINOPHEN 325 MG TABLET PO PRN (15:00)
[2019-07-12] MEDS ORDERED: ALBUTEROL FS 2.5 MG/3 ML VIAL.NEB IH PRN (15:00)
[2019-07-12] MEDS ORDERED: POLYETHYLENE GLYCOL 3350 17 GM POWD.PACK PO PRN (15:00)
[2019-07-12] MEDS ORDERED: MAG HYDROX/AL HYDROX/SIMETH 30 ML UDC PO PRN (15:00)
[2019-07-12] MEDS ORDERED: CLONIDINE HCL 0.1 MG TABLET PO PRN (15:00)
[2019-07-12] MEDS ORDERED: MAGNESIUM HYDROXIDE 30 ML UDC PO PRN (15:00)
[2019-07-12 16:00] VITALS: BP 112/56
--- NOTE | 2019-07-12 17:18 | NUR ---
PRELIM FINDINGS SHOWED POSITIVE FOR DVT AT LEFT PROX/MID/DIST SFV. RN INFORMED OF INITIAL RESULTS.
[2019-07-12] MEDS: URSODIOL 300 MG CAPSULE PO SCH (18:03)
[2019-07-12] MEDS: ENOXAPARIN SODIUM 60 MG/0.6 ML DISP.SYRIN SQ SCH (19:06)
--- NOTE | 2019-07-12 19:11 | NUR ---
BUSINESS SUPPORT ASSOCIATE NOTES: RECEIVED PATIENT Patient in bed, appears lethargic. DNR/DNI with POLST on the chart. Sinus rhythm in the Tele monitor. IVF infusing. Son Piero at bedside involved with plan of care. Safety measure in place.
--- NOTE | 2019-07-12 19:57 | NUR ---
VERIFICATION OF CODE STATUS WITH SON VERIFIED POLST WITH PTS SON SONIDO WHO WAS AT BEDSIDE. PER SON, HE WOULD LIKE TO KEEP HIS MOTHER DNR/DNI.
[2019-07-12 20:00] VITALS: BP_SYST 156; BP_SYST 98; BP_DIAS 63; BP_DIAS 78
[2019-07-12] MEDS ORDERED: ENOXAPARIN SODIUM 60 MG/0.6 ML DISP.SYRIN SQ SCH (20:00)
[2019-07-12 20:10] VITALS: BP 98/63
[2019-07-12] MEDS ORDERED: ENOXAPARIN SODIUM 30 MG/0.3 ML DISP.SYRIN SQ SCH (21:00)
[2019-07-12] MEDS: ATORVASTATIN 40 MG TABLET PO SCH (21:53)
[2019-07-12] MEDS: LEVETIRACETAM (250 MG) 250 MG TABLET PO SCH (21:53)
[2019-07-12] MEDS: ARIPIPRAZOLE 5 MG TABLET PO SCH (21:53)
[2019-07-12] MEDS: SENNOSIDES 8.6 MG TABLET PO SCH (21:53)
[2019-07-12] MEDS: DONEPEZIL 5 MG TABLET PO SCH (21:55)
--- NOTE | 2019-07-12 21:55 | NUR ---
LIQUEFIER NOTES: MENTATION IMPROVING Patient is more awake now, eyes open, speech not clear, Greenlandic speaking. Able to swallow apple sauce with no coughing. Due medication given, maintained HOB elevated.
[2019-07-13] VITALS (8 sets, daily range): BP systolic 82–125; BP diastolic 52–78
[2019-07-13] MEDS ORDERED: Z GUARD REMEDY 2 OZ OINT TP PRN ×2 (01:00)
[2019-07-13 06:17] LABS: HEMATOCRIT 32 % (33-45); LYMPHOCYTES # (AUTO) 0.8 /CMM (0.8-4.8); LYMPHOCYTES % (AUTO) 14.5 % (20.0-44.0); MEAN CORPUSCULAR HGB CONC 32 g/dl (31.0-36.0); MEAN CORPUSCULAR VOLUME 97 fL (82-100); MONOCYTES # (AUTO) 0.1 /CMM (0.1-1.30); MONOCYTES % (AUTO) 2.2 % (2.0-12.0); NEUTROPHILS # (AUTO) 4.8 /CMM (1.8-8.9); NEUTROPHILS % (AUTO) 83.3 % (43.0-81.0); PLATELET COUNT (AUTO) 133 /CMM (150-450); RED BLOOD CELL COUNT(AUTO) 3.25 MIL/uL (4.0-5.2); WHITE BLOOD COUNT (AUTO) 5.8 K/uL (4.3-11.0)
--- NOTE | 2019-07-13 06:29 | NUR ---
RESOURCE ROOM SPECIAL EDUCATION TEACHER NOTES: END OF SHIFT REPORT Patient in bed, Sinus Rhythm in the Tele monitor. Oxygen 3LPM via NC, tolerating well. Patient slept most of the night, skin precaution maintained, wound consult to follow. Had smear of stool this shift, black stool x1, patient is on Lovenox injection, will endorse to Oncoming RN to follow up if any order. Plan for NM Pulmonary w/ vent R/O clot.
[2019-07-13 06:31] LABS: CALCIUM, SERUM 8.6 mg/dL (8.5-10.1); CARBON DIOXIDE 23 mmol/L (21-32); CREATININE 1.4 mg/dL (0.6-1.3); GLUCOSE 169 mg/dL (74-106); POTASSIUM 3.2 mmol/L (3.5-5.1); UREA NITROGEN, BLOOD 43 mg/dL (7-18)
[2019-07-13 06:40] LABS: SODIUM SERUM 169 mmol/L (136-145)
[2019-07-13 06:41] LABS: CHLORIDE 132 mmol/L (98-107)
--- NOTE | 2019-07-13 07:23 | NUR ---
television cable installer opening notes Patient received on 3L nasal cannula, no sob noted, patient shows no s/s of pain at this time. L hand 22 with no IVF. L leg positive for DVT. Patient unable to do the NM pulmonary perf with vent due to patients contraction and inability to follow commands. Will let the hospitalist for today aware. Bed at the lowest setting, call light within reach, side rails up x2.
--- NOTE | 2019-07-13 08:00 | NUR ---
rn notes Patient unable to do the NM perfusion vent scan at this time. made aware.
[2019-07-13] MEDS: ASPIRIN 81 MG TAB.CHEW PO SCH (08:15)
[2019-07-13] MEDS: ACETAMINOPHEN 325 MG TABLET PO SCH (08:15)
[2019-07-13] MEDS: MULTIVIT W/MINERALS 1 TAB TABLET PO SCH (08:15)
[2019-07-13] MEDS: LEVETIRACETAM (250 MG) 250 MG TABLET PO SCH ×2 (08:15→21:09)
[2019-07-13] MEDS: ACIDOPHILUS/BULGARICUS 1 EACH TAB.CHEW PO SCH (08:15)
[2019-07-13] MEDS: PANTOPRAZOLE 40 MG TABLET.DR PO SCH (08:15)
[2019-07-13] MEDS: CLOPIDOGREL BISULFATE 75 MG TABLET PO SCH (08:16)
[2019-07-13] MEDS: AMLODIPINE BESYLATE 10 MG TABLET PO SCH (08:16)
[2019-07-13] MEDS: DOCUSATE SODIUM 100 MG CAPSULE PO SCH ×2 (08:16→16:44)
[2019-07-13] MEDS: CALCIUM CARBONATE 500 MG TAB.CHEW PO SCH (08:16)
[2019-07-13] MEDS: PROSOURCE / PROSTAT (PYXIS) 30 ML UDC PO SCH (08:17)
[2019-07-13] MEDS ORDERED: Medication Not On Formulary EA (Cran/Vitc/Mannose/Inulin/Brom (Uti-Stat Liquid) 30 ML) PO SCH (09:00)
[2019-07-13] MEDS: URSODIOL 300 MG CAPSULE PO SCH ×2 (09:00→16:44)
[2019-07-13] MEDS ORDERED: Medication Not On Formulary EA (Cranberry Extract (Cranberry) 425 MG) PO SCH (09:00)
[2019-07-13] MEDS: VALSARTAN 80 MG TABLET PO SCH (09:06)
[2019-07-13] MEDS: IV D5/0.45 NACL 1,000 ML IV PRN ×2 (10:26→21:15)
[2019-07-13] MEDS: Z GUARD REMEDY 2 OZ OINT TP SCH ×2 (10:31→21:15)
[2019-07-13] MEDS: POTASSIUM CHLORIDE 20 MEQ TAB.PRT.SR PO SCH ×2 (11:17→12:22)
[2019-07-13] MEDS: LEVOFLOXACIN 750 MG /D5W 150ML 750 MG in PREMIX 1 EA IV SCH (11:58)
[2019-07-13] MEDS: ENOXAPARIN SODIUM 60 MG/0.6 ML DISP.SYRIN SQ SCH (17:36)
--- NOTE | 2019-07-13 18:09 | NUR ---
rn closing notes Patient remains with nasal cannula 2L o2, no sob noted, patient shows no s/s ofp ain at this time. IV d5 1/2 NS running @ 100 ml per hour at this time. K replaced. NM Pulmonary PER W vent unable to be done, made aware. Bed at the lowest setting, call light within reach, side rails up x2. Will give report to NOC RN for TONY bedside.
--- NOTE | 2019-07-13 19:30 | NUR ---
REGIONAL MEDICAL DIRECTOR: RECEIVED REPORT FROM GIO RN AT 1910. PT IN BED, AWAKE, ON 3L OXYGEN VIA NC RESPIRATIONS EVEN AND UNLABORED. PT HAS LEFT HAND IV ACCESS PATENT AND FLUSHING WELL, INFUSING WITH D5 1/2 NS AT 100ML/HR. PT NOTED TO BE CONTRACTED. PER REPORT NM PULMONARY PERF SCAN UNABLE TO BE PERFORM THIS AFTERNOON MD AWARE. PT WAS ON ANTICOAGULANT LOVENOX FOR POSITIVE LEFT LEG DVT. SAFETY PRECAUTIONS FOR FALL INITIATED, CALL LIGHT IN REACH, WILL CONTINUE MONITORING PT.
--- NOTE | 2019-07-13 19:54 | NUR ---
RN NOTES: UPON CHECKING MICRO REPORT, PT POSITIVE MRSA NARES, CALLED PHARMACY, SPOKED WITH SANTI ASKED IF NEEDS TO CALL PRIMARY TO GET ORDER FOR BACTROBAN,. ACCORDING TO SANTI ITS PART OF NURSING PROTOCOL, RN CAN ORDER IT PER PROTOCOL. WILL ORDER BACTROBAN FOR MRSA NARES, NOSTRIL
--- NOTE | 2019-07-13 20:00 | NUR ---
RN NOTES/ISOLATION MRSA NARES: PLACED ON CONTACT ISOLATION FOR MRSA NARES, PPE UTILIZED.
--- NOTE | 2019-07-13 20:47 | NUR ---
RN NOTES: RECEIVED CALL FROM SANTIAGOPT'S SON, REQUESTING FOR UPDATES REGARDING PT. ANSWERED ALL QUESTIONS AND CONCERNS BASED ON LATEST LAB RESULTS, VS AND PLAN OF CARE FROM MD'S NOTES.
[2019-07-13] MEDS: ARIPIPRAZOLE 5 MG TABLET PO SCH (21:09)
[2019-07-13] MEDS: DONEPEZIL 5 MG TABLET PO SCH (21:09)
[2019-07-13] MEDS: ATORVASTATIN 40 MG TABLET PO SCH (21:09)
[2019-07-13] MEDS: SENNOSIDES 8.6 MG TABLET PO SCH (21:09)
[2019-07-13] MEDS: MUPIROCIN OINT 2% 22 GM TUBE SCH (21:16)
--- NOTE | 2019-07-13 21:16 | NUR ---
rn notes: placed on high fowlers position, aspiration precaution initiated, all due meds administered. pt able to swallow medications, pureed diet, assisted in feeding , cranberry juice thickened, no aspiration noted, will be kept on high fowlers for 30mins after taking medication.
--- NOTE | 2019-07-14 06:27 | NUR ---
end of shift report: pt remains a/o x1 on 3l oxygen via nc respirations even and unlabored. iv access remains patent and flushing well, infusing with d5 1/2 ns at 100ml/hr, no s/s of iv infiltration noted. bed bath provided to pt, wound care done as ordered, all due meds administered as ordered. kept pt on aspiration precaution, ppe utilized for isolation mrsa nares, started on Bactroban. safety precautions for fall remains engaged, call light in reach, will endorse to day rn for continuity of care.
[2019-07-14 07:04] LABS: BASOPHILS % (AUTO) 0.2 % (0.0-2.0); EOSINOPHILS % (AUTO) 0.4 % (0.0-6.0); HEMATOCRIT 32 % (33-45); LYMPHOCYTES # (AUTO) 1.3 /CMM (0.8-4.8); LYMPHOCYTES % (AUTO) 19.8 % (20.0-44.0); MEAN CORPUSCULAR HGB CONC 32 g/dl (31.0-36.0); MEAN CORPUSCULAR VOLUME 98 fL (82-100); MONOCYTES # (AUTO) 0.3 /CMM (0.1-1.30); MONOCYTES % (AUTO) 4.6 % (2.0-12.0); NEUTROPHILS # (AUTO) 4.9 /CMM (1.8-8.9); PLATELET COUNT (AUTO) 135 /CMM (150-450); RED BLOOD CELL COUNT(AUTO) 3.24 MIL/uL (4.0-5.2); WHITE BLOOD COUNT (AUTO) 6.5 K/uL (4.3-11.0)
--- NOTE | 2019-07-14 07:30 | NUR ---
MS/RN Opening Note Received patient non verbal, able to resends all stimuli. Respiratory even and unlabored, no sob or respiratory distress observed with nc at 3LPM. No appears pain or discomfort. Skin is warm to touch, kept clean.dry. No s/s of adverse reaction from ATB therapy. Encouraged patient to oral fluid intake as tolerated, call light within reach, will continue to monitor.
[2019-07-14 07:45] LABS: CALCIUM, SERUM 8.2 mg/dL (8.5-10.1); CARBON DIOXIDE 21 mmol/L (21-32); CREATININE 1.4 mg/dL (0.6-1.3); GLUCOSE 105 mg/dL (74-106); MAGNESIUM 1.8 mg/dL (1.8-2.4); PHOSPHORUS 2.1 mg/dL (2.5-4.9); POTASSIUM 3.8 mmol/L (3.5-5.1); UREA NITROGEN, BLOOD 33 mg/dL (7-18)
[2019-07-14] MEDS: PANTOPRAZOLE 40 MG TABLET.DR PO SCH (07:54)
[2019-07-14] MEDS: CALCIUM CARBONATE 500 MG TAB.CHEW PO SCH (07:54)
[2019-07-14 07:56] LABS: CHLORIDE 128 mmol/L (98-107); SODIUM SERUM 161 mmol/L (136-145)
[2019-07-14 08:00] VITALS: BP 128/70
[2019-07-14] MEDS: MUPIROCIN OINT 2% 22 GM TUBE SCH ×2 (08:41→21:34)
[2019-07-14] MEDS: LEVETIRACETAM (250 MG) 250 MG TABLET PO SCH ×2 (08:42→21:25)
[2019-07-14] MEDS: AMLODIPINE BESYLATE 10 MG TABLET PO SCH (08:42)
[2019-07-14] MEDS: VALSARTAN 80 MG TABLET PO SCH (08:42)
[2019-07-14] MEDS: ACIDOPHILUS/BULGARICUS 1 EACH TAB.CHEW PO SCH (08:43)
[2019-07-14] MEDS: ACETAMINOPHEN 325 MG TABLET PO SCH (08:43)
[2019-07-14] MEDS: MULTIVIT W/MINERALS 1 TAB TABLET PO SCH (08:44)
[2019-07-14] MEDS: CLOPIDOGREL BISULFATE 75 MG TABLET PO SCH (08:44)
[2019-07-14] MEDS: ASPIRIN 81 MG TAB.CHEW PO SCH (08:44)
[2019-07-14] MEDS: DOCUSATE SODIUM 100 MG CAPSULE PO SCH ×2 (08:44→16:44)
[2019-07-14] MEDS: IV D5/0.45 NACL 1,000 ML IV PRN ×2 (08:49→18:43)
[2019-07-14] MEDS: SILVER SULFADIAZINE 50 GM JAR TP SCH (08:55)
[2019-07-14] MEDS: PROSOURCE / PROSTAT (PYXIS) 30 ML UDC PO SCH (08:55)
[2019-07-14] MEDS: URSODIOL 300 MG CAPSULE PO SCH ×2 (08:55→16:44)
[2019-07-14] MEDS: Z GUARD REMEDY 2 OZ OINT TP SCH ×2 (08:56→21:35)
[2019-07-14 16:00] VITALS: BP 115/77
[2019-07-14] MEDS ORDERED: NEUTRA PHOS 1 POWD.PACKET PO ONE (16:30)
[2019-07-14] MEDS: RIVAROXABAN 15 MG TABLET PO SCH (16:49)
--- NOTE | 2019-07-14 18:55 | NUR ---
MS/RN Closing note Patient is in bed, sleeping comfortably. No adverse reaction from IV ATB therapy, skin is warm to touch, clean/dry. Respiratory even and unlabored with oxygen at 3LPM. Kept lower position of the bed with elevated HOB. Call light within reach, will endorse african history professor.
--- NOTE | 2019-07-14 19:20 | NUR ---
SAMPLES AND REPAIRS PREPARER: RECEIVED REPORT FROM ANN MERINO AT 1910. PT AWAKE, A/O X1, ON 3L OXYGEN VIA NC RESPIRATIONS EVEN AND UNLABORED. PT HAS LEFT HAND IV ACCESS PATENT AND FLUSHING WELL, INFUSING WITH D5 1/2 NS AT 100ML/HR. MRSA ISOLATION, PPE UTILIZED. SAFETY PRECAUTIONS FOR FALL INITIATED, CALL LIGHT IN REACH, WILL CONTINUE MONITORING PT.
[2019-07-14 19:41] LABS: CREATININE, URINE 29.2 MG/DL (30.0-125.0); URINE TOTAL PROTEIN 13.7 mg/dL (0-11.9)
[2019-07-14 20:00] VITALS: BP 129/68
[2019-07-14 20:16] LABS: APPEARANCE,URINE CLEAR (CLEAR); BILIRUBIN,URINE NEGATIVE (NEGATIVE); BLOOD, URINE NEGATIVE Ery/uL (NEGATIVE); COLOR,URINE YELLOW (YELLOW); KETONES,URINE NEGATIVE (NEGATIVE); LEUKOCYTE ESTERASE ,URINE NEGATIVE (NEGATIVE); NITRITE, URINE NEGATIVE (NEGATIVE); PROTEIN,URINE NEGATIVE (NEGATIVE); UGLUCOSE NEGATIVE (NEGATIVE); UROBILINOGEN,URINE 0.2 EU/dL (0.2)
[2019-07-14 20:18] LABS: EOSINOPHIL,URINE None Seen
[2019-07-14] MEDS: ARIPIPRAZOLE 5 MG TABLET PO SCH (21:25)
[2019-07-14] MEDS: DONEPEZIL 5 MG TABLET PO SCH (21:25)
[2019-07-14] MEDS: ATORVASTATIN 40 MG TABLET PO SCH (21:25)
[2019-07-14] MEDS: SENNOSIDES 8.6 MG TABLET PO SCH (21:25)
[2019-07-15] MEDS: IV D5/0.45 NACL 1,000 ML IV PRN ×2 (03:54→17:16)
[2019-07-15 06:19] LABS: BASOPHILS % (AUTO) 0.2 % (0.0-2.0); EOSINOPHILS % (AUTO) 1.7 % (0.0-6.0); HEMATOCRIT 31 % (33-45); LYMPHOCYTES # (AUTO) 1.4 /CMM (0.8-4.8); LYMPHOCYTES % (AUTO) 23.9 % (20.0-44.0); MEAN CORPUSCULAR HGB CONC 32 g/dl (31.0-36.0); MEAN CORPUSCULAR VOLUME 95 fL (82-100); MONOCYTES # (AUTO) 0.3 /CMM (0.1-1.30); MONOCYTES % (AUTO) 5.4 % (2.0-12.0); NEUTROPHILS # (AUTO) 3.9 /CMM (1.8-8.9); NEUTROPHILS % (AUTO) 68.8 % (43.0-81.0); PLATELET COUNT (AUTO) 141 /CMM (150-450); RED BLOOD CELL COUNT(AUTO) 3.28 MIL/uL (4.0-5.2); WHITE BLOOD COUNT (AUTO) 5.7 K/uL (4.3-11.0)
--- NOTE | 2019-07-15 06:32 | NUR ---
end of shift report: pt remains a/o x1 on oxygen, iv access remains patent and flushing well, infusing with d5 1/2 ns at 100ml/hr, no s/s of iv infiltration noted. all due meds administered as ordered. kept pt on aspiration precaution. safety precautions for fall remains engaged, call light in reach, will endorse to day rn for continuity of care.
[2019-07-15 06:39] LABS: ALANINE AMINOTRANSFERASE 9 U/L (12-78); ALBUMIN 1.9 g/dL (3.4-5.0); ALKALINE PHOSPHATASE 113 U/L (46-116); ASPARTATE AMINOTRANSFERASE 13 U/L (15-37); BILIRUBIN,TOTAL 0.3 mg/dL (0.2-1.0); CALCIUM, SERUM 7.3 mg/dL (8.5-10.1); CARBON DIOXIDE 23 mmol/L (21-32); CHLORIDE 121 mmol/L (98-107); CREATININE 0.9 mg/dL (0.6-1.3); GLUCOSE 145 mg/dL (74-106); MAGNESIUM 1.5 mg/dL (1.8-2.4); PHOSPHORUS 2.3 mg/dL (2.5-4.9); SODIUM SERUM 155 mmol/L (136-145); TOTAL PROTEIN, SERUM 4.7 g/dL (6.4-8.2); UREA NITROGEN, BLOOD 20 mg/dL (7-18)
[2019-07-15 06:48] LABS: CREATINE KINASE, TOTAL 22 U/L (26-192)
--- NOTE | 2019-07-15 07:30 | NUR ---
MS/RN Opening Note Received patient AO x 1, able to resends all stimuli. Respiratory even and unlabored, no sob or respiratory distress observed. NO appears pain or discomfort. Skin is warm to touch, kept clean.dry. No s/s of adverse reaction from ATB therapy. Encouraged patient to oral fluid intake as tolerated, call light within reach, will continue to monitor.
[2019-07-15 08:00] VITALS: BP 121/73
[2019-07-15] MEDS: PANTOPRAZOLE 40 MG TABLET.DR PO SCH (08:03)
[2019-07-15] MEDS: CALCIUM CARBONATE 500 MG TAB.CHEW PO SCH (08:03)
[2019-07-15] MEDS: POTASSIUM CL. PREMIX PERIPHER. 50 ML IV SCH ×5 (08:40→12:59)
[2019-07-15] MEDS: ACETAMINOPHEN 325 MG TABLET PO SCH (08:42)
[2019-07-15] MEDS: URSODIOL 300 MG CAPSULE PO SCH ×2 (08:42→16:55)
[2019-07-15] MEDS: RIVAROXABAN 15 MG TABLET PO SCH ×2 (08:42→16:56)
[2019-07-15] MEDS: AMLODIPINE BESYLATE 10 MG TABLET PO SCH (08:43)
[2019-07-15] MEDS: CLOPIDOGREL BISULFATE 75 MG TABLET PO SCH (08:43)
[2019-07-15] MEDS: LEVETIRACETAM (250 MG) 250 MG TABLET PO SCH ×2 (08:43→21:16)
[2019-07-15] MEDS: ACIDOPHILUS/BULGARICUS 1 EACH TAB.CHEW PO SCH (08:43)
[2019-07-15] MEDS: DOCUSATE SODIUM 100 MG CAPSULE PO SCH ×2 (08:43→16:55)
[2019-07-15] MEDS: SILVER SULFADIAZINE 50 GM JAR TP SCH (08:44)
[2019-07-15] MEDS: MULTIVIT W/MINERALS 1 TAB TABLET PO SCH (08:44)
[2019-07-15] MEDS: PROSOURCE / PROSTAT (PYXIS) 30 ML UDC PO SCH (08:44)
[2019-07-15] MEDS: Z GUARD REMEDY 2 OZ OINT TP SCH ×2 (08:44→21:25)
[2019-07-15] MEDS: MUPIROCIN OINT 2% 22 GM TUBE SCH ×2 (08:45→21:25)
[2019-07-15] MEDS: Magnesium 1GM/D5W 100ML PREMIX 100 ML IV SCH ×2 (09:34→10:34)
[2019-07-15] MEDS ORDERED: NEUTRA PHOS 1 POWD.PACKET PO ONE (11:30)
[2019-07-15] MEDS: LEVOFLOXACIN 750 MG /D5W 150ML 750 MG in PREMIX 1 EA IV SCH (11:31)
[2019-07-15 16:42] VITALS: BP 102/65
--- NOTE | 2019-07-15 18:30 | NUR ---
MS/RN Closing note Patient is in bed, no appears pain or discomfort. No adverse reaction from IV ATB therapy, skin is warm to touch, clean/dry. Respiratory even and unlabored with oxygen at 3LPM. Kept lower position of the bed with elevated HOB. Call light within reach, will endorse auxiliary operator.
--- NOTE | 2019-07-15 19:30 | NUR ---
HAT BLOCKER: RECEIVED REPORT FROM ANN MERINO AT 1915. PT REMAINS ON MRSA ISOLATION, PPE UTILIZED. PT AWAKE, A/O X1, ON 3L OXYGEN VIA NC RESPIRATIONS EVEN AND UNLABORED. PT HAS LEFT HAND IV ACCESS PATENT AND FLUSHING WELL, INFUSING WITH D5 1/2 NS AT 100ML/HR. SAFETY PRECAUTIONS FOR FALL INITIATED, CALL LIGHT IN REACH, WILL CONTINUE MONITORING PT.
[2019-07-15 20:00] VITALS: BP 107/67
[2019-07-15] MEDS: ATORVASTATIN 40 MG TABLET PO SCH (21:16)
[2019-07-15] MEDS: SENNOSIDES 8.6 MG TABLET PO SCH (21:16)
[2019-07-15] MEDS: DONEPEZIL 5 MG TABLET PO SCH (21:16)
[2019-07-15] MEDS: ARIPIPRAZOLE 5 MG TABLET PO SCH (21:16)
[2019-07-16] MEDS: IV D5/0.45 NACL 1,000 ML IV PRN ×2 (01:54→17:58)
--- NOTE | 2019-07-16 05:51 | NUR ---
rn notes: per shuttle operator pt is hard stick and will send someone to draw blood.
--- NOTE | 2019-07-16 06:56 | NUR ---
end of shift report: pt remains on isolation, on bactroban. wound care done as ordered. remains a/o x1 on oxygen, iv access remains patent and flushing well, infusing with d5 1/2 ns at 100ml/hr, no s/s of iv infiltration noted. all due meds administered as ordered. kept pt on aspiration precaution. safety precautions for fall remains engaged, call light in reach, will endorse to day rn for continuity of care.
--- NOTE | 2019-07-16 07:27 | NUR ---
RN NOTES RECEIVED PATIENT IN BED RESTING COMFORTABLY IN MODERATE HIGH BACK REST. A/O X1, ON 3L OXYGEN VIA NC RESPIRATIONS EVEN AND UNLABORED. NO SIGNS OF DISTRESS NOTED AT THIS TIME. IV FLUIDS OF D5 1/2 NS AT 100ML/HR, PATENT AND INTACT. ON ISOLATION PRECAUTION FOR MRSA NARES. SAFETY MEASURES IN PLACE, BED IN LOW LOCKED POSITION WITH SIDE RAILS UP X2. CALL LIGHT WITHIN REACH. WILL CONTINUE TO MONITOR.
[2019-07-16 08:00] VITALS: BP 108/69
[2019-07-16] MEDS: ACIDOPHILUS/BULGARICUS 1 EACH TAB.CHEW PO SCH (08:24)
[2019-07-16] MEDS: PANTOPRAZOLE 40 MG TABLET.DR PO SCH (08:24)
[2019-07-16] MEDS: AMLODIPINE BESYLATE 10 MG TABLET PO SCH (08:24)
[2019-07-16] MEDS: ACETAMINOPHEN 325 MG TABLET PO SCH (08:24)
[2019-07-16] MEDS: DOCUSATE SODIUM 100 MG CAPSULE PO SCH ×2 (08:24→16:37)
[2019-07-16] MEDS: CALCIUM CARBONATE 500 MG TAB.CHEW PO SCH (08:25)
[2019-07-16] MEDS: PROSOURCE / PROSTAT (PYXIS) 30 ML UDC PO SCH (08:25)
[2019-07-16] MEDS: MULTIVIT W/MINERALS 1 TAB TABLET PO SCH (08:25)
[2019-07-16] MEDS: CLOPIDOGREL BISULFATE 75 MG TABLET PO SCH (08:25)
[2019-07-16] MEDS: LEVETIRACETAM (250 MG) 250 MG TABLET PO SCH ×2 (08:25→21:30)
[2019-07-16] MEDS: URSODIOL 300 MG CAPSULE PO SCH ×2 (08:27→16:37)
[2019-07-16] MEDS: RIVAROXABAN 15 MG TABLET PO SCH ×2 (08:28→16:44)
[2019-07-16] MEDS: MUPIROCIN OINT 2% 22 GM TUBE SCH ×2 (08:31→21:39)
[2019-07-16] MEDS: SILVER SULFADIAZINE 50 GM JAR TP SCH (08:31)
[2019-07-16] MEDS: Z GUARD REMEDY 2 OZ OINT TP SCH ×2 (08:35→21:39)
[2019-07-16 12:25] LABS: BASOPHILS % (AUTO) 0.4 % (0.0-2.0); EOSINOPHILS % (AUTO) 1.5 % (0.0-6.0); HEMATOCRIT 33 % (33-45); HEMOGLOBIN 10.7 g/dL (11.5-14.8); LYMPHOCYTES # (AUTO) 1.2 /CMM (0.8-4.8); LYMPHOCYTES % (AUTO) 21.6 % (20.0-44.0); MEAN CORPUSCULAR HGB CONC 32 g/dl (31.0-36.0); MEAN CORPUSCULAR VOLUME 96 fL (82-100); MONOCYTES # (AUTO) 0.3 /CMM (0.1-1.30); MONOCYTES % (AUTO) 6.1 % (2.0-12.0); NEUTROPHILS # (AUTO) 3.9 /CMM (1.8-8.9); NEUTROPHILS % (AUTO) 70.4 % (43.0-81.0); PLATELET COUNT (AUTO) 120 /CMM (150-450); RED BLOOD CELL COUNT(AUTO) 3.48 MIL/uL (4.0-5.2); WHITE BLOOD COUNT (AUTO) 5.5 K/uL (4.3-11.0)
[2019-07-16 16:00] VITALS: BP 111/70
[2019-07-16 16:10] LABS: *SPE A/G RATIO 0.9 (0.7-1.7); *SPE ALBUMIN 2.1 g/dL (2.9-4.4); *SPE ALPHA-1-GLOBULIN 0.2 g/dL (0.0-0.4); *SPE ALPHA-2-GLOBULIN 0.7 g/dL (0.4-1.0); *SPE BETA GLOBULIN 0.8 g/dL (0.7-1.3); *SPE GLOBULIN, TOTAL 2.3 g/dL (2.2-3.9); *SPE M-SPIKE Not Observed g/dL (Not Observed); *SPEGAMMA GLOBULIN 0.6 g/dL (0.4-1.8)
[2019-07-16 16:34] LABS: CALCIUM, SERUM 7.4 mg/dL (8.5-10.1); CREATININE 1.1 mg/dL (0.6-1.3); MAGNESIUM 2.1 mg/dL (1.8-2.4); PHOSPHORUS 2.6 mg/dL (2.5-4.9); POTASSIUM 3.7 mmol/L (3.5-5.1)
--- NOTE | 2019-07-16 18:37 | NUR ---
RN NOTES PATIENT IN BED RESTING COMFORTABLY IN MODERATE HIGH BACK REST. A/O X1, ON 3L OXYGEN VIA NC RESPIRATIONS EVEN AND UNLABORED. NO SIGNS OF DISTRESS NOTED THROUGHOUT THE SHIFT. IV FLUIDS ON PAIGE MIDLINE #18 OF D5 1/2 NS AT 100ML/HR, PATENT AND INTACT. ON ISOLATION PRECAUTION FOR MRSA NARES. SAFETY MEASURES IN PLACE, BED IN LOW LOCKED POSITION WITH SIDE RAILS UP X2. CALL LIGHT WITHIN REACH. WILL ENDORSE TO METAL BED ASSEMBLER NURSE FOR TONY.
[2019-07-16] MEDS ORDERED: IV D5W 1,000 ML IV SCH (19:30)
[2019-07-16 20:00] VITALS: BP 128/78
[2019-07-16 20:03] VITALS: BP 128/78
--- NOTE | 2019-07-16 20:33 | NUR ---
NIGHT STOCKER: RECEIVED REPORT FROM MARCOS AT 1900. S/P MIDLINE INSERTION, PATENT AND FLUSHING WELL, INFUSING WITH D5 W AT 75ML/HR. PT FOR DC PLANNING TO, SON SANTIAGO WOULD LIKE TO SPEAK WITH MD, WILL RELAY TO MD IN AM. PT ON MRSA ISOLATION, PPE UTILIZED. REPOSITION PT AT THIS TIME WITH HELP OF MARK SEPULVEDA. PT SLEEPING, ON 3L OXYGEN VIA NC RESPIRATIONS EVEN AND UNLABORED.,SAFETY PRECAUTIONS FOR FALL INITIATED, CALL LIGHT IN REACH, WILL CONTINUE MONITORING PT.
[2019-07-16] MEDS: DONEPEZIL 5 MG TABLET PO SCH (21:29)
[2019-07-16] MEDS: ARIPIPRAZOLE 5 MG TABLET PO SCH (21:29)
[2019-07-16] MEDS: ATORVASTATIN 40 MG TABLET PO SCH (21:30)
[2019-07-16] MEDS: SENNOSIDES 8.6 MG TABLET PO SCH (21:30)
--- NOTE | 2019-07-16 22:46 | NUR ---
rn notes/assistant media planner: aspiration precaution initiated, pt on pureed diet. all due meds administered at 2130, assisted pt in feeding, provided thickened cranberry juice and apple sauce. pt consumed 100%. no aspiration noted. kept hob 45 degree 30mins after feeding/taking meds. assisted armor reconnaissance specialist in changing pt's diaper and repositioning pt at 2200. wound care done as ordered.
[2019-07-17 06:25] LABS: BASOPHILS % (AUTO) 0.1 % (0.0-2.0); EOSINOPHILS % (AUTO) 2.1 % (0.0-6.0); HEMATOCRIT 30 % (33-45); HEMOGLOBIN 9.7 g/dL (11.5-14.8); LYMPHOCYTES # (AUTO) 1.3 /CMM (0.8-4.8); LYMPHOCYTES % (AUTO) 19.2 % (20.0-44.0); MEAN CORPUSCULAR HGB CONC 32 g/dl (31.0-36.0); MEAN CORPUSCULAR VOLUME 95 fL (82-100); MONOCYTES # (AUTO) 0.3 /CMM (0.1-1.30); MONOCYTES % (AUTO) 4.3 % (2.0-12.0); NEUTROPHILS # (AUTO) 4.8 /CMM (1.8-8.9); NEUTROPHILS % (AUTO) 74.3 % (43.0-81.0); PLATELET COUNT (AUTO) 137 /CMM (150-450); RED BLOOD CELL COUNT(AUTO) 3.16 MIL/uL (4.0-5.2); WHITE BLOOD COUNT (AUTO) 6.5 K/uL (4.3-11.0)
--- NOTE | 2019-07-17 06:54 | NUR ---
end of shift report: pt remains a/o x1, on oxygen, no sob noted, appears calm and comfortable. roseann midline remains patent and flushing well, infusing with d5w at 75ml/hr, no s/s of iv infiltration noted. all due meds administered as ordered. bed bath provided to pt, including complete linen change. kept pt on aspiration precaution. pt for dc planning today. vs remains stable, needs attended. safety precautions for fall remains engaged, call light in reach, will endorse to day rn for continuity of care.
[2019-07-17 07:05] LABS: CALCIUM, SERUM 7.1 mg/dL (8.5-10.1); CREATININE 0.9 mg/dL (0.6-1.3); MAGNESIUM 1.8 mg/dL (1.8-2.4); PHOSPHORUS 2.5 mg/dL (2.5-4.9); POTASSIUM 3.4 mmol/L (3.5-5.1)
[2019-07-17 07:08] LABS: PTH, INTACT 152 pg/mL (15-65)
[2019-07-17 08:00] VITALS: BP 122/46
--- NOTE | 2019-07-17 08:00 | NUR ---
MS RN AM NOTES Pt remains a/o x1, on oxygen, no sob noted, appears calm and comfortable. roseann midline remains patent and flushing well, infusing with d5w at 75ml/hr, no s/s of iv infiltration noted. all due meds administered as ordered. bed bath provided to pt, including complete linen change. kept pt on aspiration precaution. pt for dc planning today. vs remains stable, needs attended. safety precautions for fall remains engaged, call light in reach,
[2019-07-17] MEDS: MULTIVIT W/MINERALS 1 TAB TABLET PO SCH (10:04)
[2019-07-17] MEDS: CLOPIDOGREL BISULFATE 75 MG TABLET PO SCH (10:05)
[2019-07-17] MEDS: DOCUSATE SODIUM 100 MG CAPSULE PO SCH (10:05)
[2019-07-17] MEDS: AMLODIPINE BESYLATE 10 MG TABLET PO SCH (10:05)
[2019-07-17] MEDS: LEVETIRACETAM (250 MG) 250 MG TABLET PO SCH (10:06)
[2019-07-17] MEDS: PROSOURCE / PROSTAT (PYXIS) 30 ML UDC PO SCH (10:06)
[2019-07-17] MEDS: ACIDOPHILUS/BULGARICUS 1 EACH TAB.CHEW PO SCH (10:06)
[2019-07-17] MEDS: URSODIOL 300 MG CAPSULE PO SCH (10:06)
[2019-07-17] MEDS: Z GUARD REMEDY 2 OZ OINT TP SCH (10:07)
[2019-07-17] MEDS: RIVAROXABAN 15 MG TABLET PO SCH (10:12)
[2019-07-17] MEDS: CALCIUM CARBONATE 500 MG TAB.CHEW PO SCH (10:16)
[2019-07-17] MEDS: PANTOPRAZOLE 40 MG TABLET.DR PO SCH (10:17)
[2019-07-17] MEDS: ACETAMINOPHEN 325 MG TABLET PO SCH (10:17)
[2019-07-17] MEDS ORDERED: RIVA15TA PO (10:50)
[2019-07-17] MEDS: SILVER SULFADIAZINE 50 GM JAR TP SCH (11:12)
[2019-07-17] MEDS: MUPIROCIN OINT 2% 22 GM TUBE SCH (11:12)
[2019-07-17] MEDS ORDERED: LEVOFLOXACIN (750 MG) 750 MG TABLET PO SCH (12:00)
[2019-07-17] MEDS ORDERED: POTASSIUM CHLORIDE 20 MEQ TAB.PRT.SR PO SCH (12:00)
[2019-07-17 16:00] VITALS: BP 110/68
--- NOTE | 2019-07-17 17:48 | NUR ---
DISCHARGED TO [facility] WITH STABLE V/S VIA AMBULANCE.REPORT CALLED IN TO ANGELIQUE VALENZUELA [facility] [employer].NO S/S OF PAIN OR DISTRESS. REMOVED PAIGE MIDLINE WITH NO BLEEDING NOTED.
[2019-07-18] MEDS ORDERED: ERGOCALCIFEROL (VITAMIN D 2) 50,000 UNIT CAPSULE PO SCH (09:00)
== END 2019-07-17 17:45 | DRG 193 ==
LOC: ER 10:34 → MED 12:23 → TELE 14:54 → MED 07-13 08:19
PROVIDERS: ADMIT Internal Medicine Nephrology; ATTEND Internal Medicine
PROC: 05H933Z Insertion of Infusion Device into Right Brachial Vein, Percutaneous Approach (ICD-10-PCS; principal; 2019-07-16)
DX: J15.9 Unspecified bacterial pneumonia (principal); J96.01 Acute respiratory failure with hypoxia; G92 Toxic encephalopathy; N17.0 Acute kidney failure with tubular necrosis; I21.4 Non-ST elevation (NSTEMI) myocardial infarction; E43 Unspecified severe protein-calorie malnutrition; E87.0 Hyperosmolality and hypernatremia; J98.11 Atelectasis; E87.2 Acidosis; I82.409 Acute embolism and thrombosis of unspecified deep veins of unspecified lower extremity; E86.0 Dehydration; F09 Unspecified mental disorder due to known physiological condition; Z66 Do not resuscitate; E55.9 Vitamin D deficiency, unspecified; E11.9 Type 2 diabetes mellitus without complications; D63.8 Anemia in other chronic diseases classified elsewhere; E66.01 Morbid (severe) obesity due to excess calories; I70.0 Atherosclerosis of aorta; I10 Essential (primary) hypertension; G40.909 Epilepsy, unspecified, not intractable, without status epilepticus; G25.81 Restless legs syndrome; G20 Parkinson's disease; F02.80 Dementia in other diseases classified elsewhere, unspecified severity, without behavioral disturbance, psychotic disturbance, mood disturbance, and anxiety; E86.1 Hypovolemia; E78.5 Hyperlipidemia, unspecified; Z96.659 Presence of unspecified artificial knee joint; Z86.73 Personal history of transient ischemic attack (TIA), and cerebral infarction without residual deficits; Z79.82 Long term (current) use of aspirin; Z79.02 Long term (current) use of antithrombotics/antiplatelets; Z79.01 Long term (current) use of anticoagulants; M81.0 Age-related osteoporosis without current pathological fracture; Z88.0 Allergy status to penicillin; Z79.899 Other long term (current) drug therapy; Z79.51 Long term (current) use of inhaled steroids; S90.822A Blister (nonthermal), left foot, initial encounter; X58.XXXA Exposure to other specified factors, initial encounter; M62.50 Muscle wasting and atrophy, not elsewhere classified, unspecified site; L98.9 Disorder of the skin and subcutaneous tissue, unspecified
CPT/HCPCS: 36415; 71045-TC; 80048-TC; 80053-TC; 80076-TC; 81000-TC; 82550-TC; 82570-TC; 83735-TC; 83880; 83970; 84100-TC; 84155; 84155-TC; 84165; 84300-TC; 84484-TC; 85025-TC; 87081-TC; 93970-TC; A4216; G0378; J1650; J1956; J2930; J3475; J3480; J3490; J7030; J7070

== ENCOUNTER 2019-12-17 19:13 | Inpatient (IN) | payer MEDICARE, OTHER ==
[~2019-12-17] VITALS: Ht 157.5 cm; Wt 61.2 kg
[~2019-12-17 19:13] MED LIST changes: +AMIN30LI27 PO; -ASPI-1152 PO; +ASPI-1169 PO; -CALC300T4 PO; +CALC500T63 PO; -FAMO1TAB29 PO; -FLUC100T8 PO; -HYDR-4384 PO; +RIVA15TA PO
[2019-12-17] MEDS ORDERED: IV NS 0.9% 1,000 ML BAG IV ONE (19:30)
[2019-12-17] MEDS ORDERED: ACETAMINOPHEN 650 MG/SUPP.RECT RC ONE ×3 (19:30→19:36)
[2019-12-17 19:50] LABS: BASOPHILS % (AUTO) 0.1 % (0.0-2.0); HEMATOCRIT 46 % (33-45); HEMOGLOBIN 14.7 g/dL (11.5-14.8); LYMPHOCYTES # (AUTO) 1.2 /CMM (0.8-4.8); LYMPHOCYTES % (AUTO) 3.8 % (20.0-44.0); MEAN CORPUSCULAR HGB CONC 32 g/dl (31.0-36.0); MEAN CORPUSCULAR VOLUME 96 fL (82-100); MONOCYTES # (AUTO) 1.1 /CMM (0.1-1.30); MONOCYTES % (AUTO) 3.5 % (2.0-12.0); NEUTROPHILS # (AUTO) 29.8 /CMM (1.8-8.9); NEUTROPHILS % (AUTO) 92.6 % (43.0-81.0); PLATELET COUNT (AUTO) 156 /CMM (150-450)
[2019-12-17 19:51] LABS: APPEARANCE,URINE Slightly Cloudy (CLEAR); BILIRUBIN,URINE LARGE (NEGATIVE); BLOOD, URINE Negative Ery/uL (NEGATIVE); COLOR,URINE Orange (YELLOW); KETONES,URINE Trace (NEGATIVE); LEUKOCYTE ESTERASE ,URINE Negative (NEGATIVE); NITRITE, URINE Negative (NEGATIVE); PH,URINE 5.5 (5.0-8.0); PROTEIN,URINE 30 mg/dl (NEGATIVE); UGLUCOSE Negative (NEGATIVE)
--- NOTE | 2019-12-17 19:52 | NUR ---
BIBRA FROM SNF TO ER BED 6. AAOX0. NON VERBAL. NOT IN RESP DISTRESS BUT NNOTED WITH 02 SAT 93% PLACED ON O2 VIA NC @ 2LPM SATTING NOW AT 96-97%. BEDBOUND. BROUGHT IN FOR TACHYCARDIC AND VOMMITING X 1. PT HR IS NOTED IN THE 130S. PT ALSO NOTED WITH RECTAL TEMP OF 99.9. PT IS PRESENTED WITH BILAT WOUND ON THE FOOT WHICH IS WRAPPED WITH KERLIX. MD WAS AT THE BEDSIDE FOR EVAL. ORDERS RECEIVED NOTED AND CARRIED OUT. IV LINE OBTAINED ON L HAND 18G. BLOOD DRAWN AND SENT GIVEN TO SINGE MACHINE OPERATOR AT BEDSIDE. URONE COLLECTED VIA STARIGHT CATH PER MD ORDERED W/ STRICT STERILE TECHNIQUE OBSERVED WHILE DOING PROCEDURE. PT IS PLACED ON MONITOR.
[2019-12-17 19:53] LABS: WHITE BLOOD COUNT (AUTO) 32.2 K/uL (4.3-11.0)
--- NOTE | 2019-12-17 19:57 | NUR ---
caty (son) [phone] . please call anytime of the day or night per sonfor any information or updates.
[2019-12-17 20:02] LABS: BACTERIA,URINE Few /HPF (None Seen); RBC,URINE 0-2 /HPF (0-2); SQUAMOUS EPITHELIAL CELL,UR Few /HPF (None Seen); WBC,URINE 0-2 /HPF (0-3)
[2019-12-17 20:16] LABS: CALCIUM, SERUM 9.6 mg/dL (8.5-10.1); CARBON DIOXIDE 30 mmol/L (21-32); CHLORIDE 102 mmol/L (98-107); CREATININE 1.6 mg/dL (0.6-1.3); GLUCOSE 149 mg/dL (74-106); POTASSIUM 4.8 mmol/L (3.5-5.1); SODIUM SERUM 141 mmol/L (136-145); UREA NITROGEN, BLOOD 46 mg/dL (7-18)
[2019-12-17 20:20] LABS: ALANINE AMINOTRANSFERASE 113 U/L (12-78); ALBUMIN 2.8 g/dL (3.4-5.0); ALKALINE PHOSPHATASE 284 U/L (46-116); ASPARTATE AMINOTRANSFERASE 218 U/L (15-37); BILIRUBIN,DIRECT 3.8 mg/dL (0.0-0.2); BILIRUBIN,TOTAL 4.7 mg/dL (0.2-1.0)
[2019-12-17 20:29] LABS: B-TYPE NATRIURETIC PEPTIDE 6440 PG/ML (0-125)
[2019-12-17] MEDS ORDERED: MEROPENEM 1 G in IV NS 0.9% 100 ML IV ONE (20:30)
[2019-12-17] MEDS ORDERED: MEROPENEM 1 G VIAL IV ONE (20:42)
[2019-12-17 20:55] LABS: BAND % (MANUAL) 14 % (0.0-5.0); LYMPHOCYTES % (MANUAL) 6 % (16-48); MONOCYTES % (MANUAL) 5 % (0-11.0); NEUTROPHILS % (MANUAL) 75 (42-76)
--- NOTE | 2019-12-17 21:17 | NUR ---
BED 313-1
[2019-12-17] MEDS ORDERED: ASPI-1169 GT (21:18)
[2019-12-17] MEDS ORDERED: AMLO10TA7 GT (21:18)
[2019-12-17] MEDS ORDERED: AMIN30LI2 GT (21:18)
[2019-12-17] MEDS ORDERED: CRAN3875 GT (21:18)
[2019-12-17] MEDS ORDERED: CARB1TAB21 PO (21:18)
[2019-12-17] MEDS ORDERED: MULT-754 GT (21:18)
[2019-12-17] MEDS ORDERED: LEVE1000 GT (21:18)
[2019-12-17] MEDS ORDERED: CRAN425C6 GT (21:18)
[2019-12-17] MEDS ORDERED: ASCO500C16 GT (21:18)
--- NOTE | 2019-12-17 21:47 | NUR ---
PT'S SON IS NOTIFIED THAT HIS MOTHER IS GOING TO BE ADNITTED TO THE HOSPITAL
--- NOTE | 2019-12-17 22:01 | NUR ---
REPORT GIVEN TO ANGELIQUE DAVE FOR TONY.
[2019-12-17 22:15] VITALS: BP 100/74
--- NOTE | 2019-12-17 22:21 | NUR ---
PT TRANSPORTED TO [facility] ON GURNEY WITH EMT AND RN AT BEDSIDE W/ ACLS PROTOCOL. NAD NOTED DURING TRANSPORT.
[2019-12-17] MEDS ORDERED: CEFEPIME 1 GM in IV D5W 50 ML IV SCH (23:00)
[2019-12-17] MEDS ORDERED: ACETAMINOPHEN 325 MG TABLET PO PRN (23:00)
[2019-12-17] MEDS ORDERED: ONDANSETRON HCL/PF 4 MG/2 ML VIAL IVP PRN (23:00)
[2019-12-17] MEDS ORDERED: Z GUARD REMEDY 2 OZ OINT TP PRN (23:00)
--- NOTE | 2019-12-17 23:07 | NUR ---
TABLE OPERATOR NOTES LAB REPORTED LACTIC ACID OF 2.6, MD BRODY SANCHEZ NOTIFIED. NO NEW ORDERS MADE, WILL CONTINUE TO MONITOR.
--- NOTE | 2019-12-17 23:08 | NUR ---
SECURITY SYSTEM ANALYST NOTES PATIENT BEING BROUGHT DOWN FOR CT
--- NOTE | 2019-12-17 23:25 | NUR ---
STAFF ELECTRONIC WARFARE OFFICER NOTES PATIENT BACK FROM CT
[2019-12-17] MEDS ORDERED: METRONIDAZOLE 500MG/ NS 100ML 100 ML IV ONE (23:34)
[2019-12-17] MEDS: PANTOPRAZOLE 40 MG VIAL IV SCH (23:44)
[2019-12-17] MEDS: METRONIDAZOLE 500MG/ NS 100ML 500 MG in PREMIX 1 EA IV SCH (23:44)
[2019-12-17] MEDS: IV NS 0.9% 1,000 ML IV PRN (23:44)
[2019-12-18] VITALS: BP_SYST 100; BP_SYST 99; BP_DIAS 61; BP_DIAS 74
--- NOTE | 2019-12-18 | NUR ---
FERMENTER HELPER NOTES MD BRODY SANCHEZ AT BEDSIDE WITH PATIENT
--- NOTE | 2019-12-18 | NUR ---
LIFE SKILLS TEACHER OPENING NOTES PATIENT RECEIVED FROM ER ACCOMPAIED BY ER STAFF VIA GURDEX. PATIENT ON 2L OF O2 WITH BREATINGG EVEN AND UNLABORED, NO SOB NOTED. NO SIGNS OF ACUTE DISTRESS. TELE MONITORS PLACED, VITALS TAKEN. IV LOCATED ON L HAND #18. BELONGINGS ACCOUNTED FOR. SKIN ASSESSMENT DONE. TELE MONITORS PLACED. WILL CONTINUE TO MONITOR THROUGHOUT THE NIGHT.
--- NOTE | 2019-12-18 00:20 | NUR ---
SENIOR SOFTWARE DEVELOPER NOTESS F/U WITH MD BRODY SANCHEZ ON PATIENT, ORDERED TO CONTINUE PREVIOUS FEEDING FROM FACILITY. JEVITY 1.2 60 ML/HR X 20 HOURS STARTING 2PM- 10 AM
[2019-12-18] MEDS ORDERED: MAGNESIUM CITRATE 296 ML BOTTLE GT ONE (01:00)
[2019-12-18] MEDS ORDERED: NA PHOS,M-B/NA PHOS,DI-BA 1 EA ENEMA RC PRN (01:00)
[2019-12-18] MEDS ORDERED: CEFEPIME 1 GM VIAL ONE (01:23)
[2019-12-18] MEDS: CEFEPIME 1 GM in IV D5W 50 ML IV SCH (02:12)
[2019-12-18 04:00] VITALS: BP 115/76
[2019-12-18] MEDS ORDERED: METRONIDAZOLE 500MG/ NS 100ML 100 ML IV ONE (06:05)
[2019-12-18] MEDS: METRONIDAZOLE 500MG/ NS 100ML 500 MG in PREMIX 1 EA IV SCH ×3 (06:26→20:44)
--- NOTE | 2019-12-18 06:53 | NUR ---
PROFESSOR OF ART HISTORY NOTES CALLED PATIENT'S SON SANTIAGO [phone] FOR HIDA SCAN SIGNATURE, BUT REFUSED. SON WANTS MOTHER TO BE TRANSFERRED TO [facility] BECAUSE OF FAMILIAR DR'S. WILL CALL TO FOLLOW UP ABOUT PATIENTS TRANSFER OF CARE, OF NOW NO CONSENT FOR HIDA SCAN.
--- NOTE | 2019-12-18 07:23 | NUR ---
DOCUMENT MANAGEMENT TECHNICIAN NOTES CALLED RADIOLOGY ABOUT HIDA SCAN AND NO CONSENT, ENDORSED TO AM NURSE IF ANYTHING CHANGES
--- NOTE | 2019-12-18 07:40 | NUR ---
RN OCCUPATIONAL CLOSING NOTES PATIENT IN BED RESTING A/O X 0 NON VERBAL. ON 2L OF O2 WITH BREATHING EVEN AND UNLABORED, NO SOB NOTED. NO SIGNS OF ACUTE DISTRESS. NO COMPLAINTS OF PAIN OR DISCOMFORT, NO FACIAL GRIMACNG NOTED. G TUBE NOTED AND IN INTACT. L HAND #18 RUNNING NS @ 75 ML/HR. SAFETY PRECAUTIONS IN PLACE WITH BED IN LOWEST POSITION, CALLL IGHT WITHIN REACH, BREAKS ON, SIDE RAILS UP. WILL ENDORSE TO ONCOMING SHIFT ABOUT TONY.
--- NOTE | 2019-12-18 07:45 | NUR ---
RN OPENING NOTE Patient is resting in bed, A/O x0, non-verbal, showing no signs of acute distress or SOB, stable on 2L NC. Tele monitor SR ST 90s-100s with PVCs. IV line in the left hand #18g is clean and intact running NS @ 75mls/hour. GTF held at this time due to NPO status. Per patient's son, he does not want to signs consent for HIDA scan because he wants to transfer the patient to [facility]. Charge nurse made aware. Will notify MD. Bed is in lowest position, side rails x3 in upright position, call light is within reach. Fall safety and aspiration precautions enforced. Will continue with plan of care.
[2019-12-18 07:57] LABS: BASOPHILS % (AUTO) 0.2 % (0.0-2.0); EOSINOPHILS % (AUTO) 0.2 % (0.0-6.0); HEMATOCRIT 42 % (33-45); HEMOGLOBIN 13.1 g/dL (11.5-14.8); LYMPHOCYTES # (AUTO) 0.9 /CMM (0.8-4.8); LYMPHOCYTES % (AUTO) 4.7 % (20.0-44.0); MEAN CORPUSCULAR HGB CONC 31 g/dl (31.0-36.0); MEAN CORPUSCULAR VOLUME 97 fL (82-100); MONOCYTES # (AUTO) 0.9 /CMM (0.1-1.30); MONOCYTES % (AUTO) 4.4 % (2.0-12.0); NEUTROPHILS # (AUTO) 17.6 /CMM (1.8-8.9); NEUTROPHILS % (AUTO) 90.5 % (43.0-81.0); PLATELET COUNT (AUTO) 128 /CMM (150-450); WHITE BLOOD COUNT (AUTO) 19.5 K/uL (4.3-11.0)
[2019-12-18 08:00] VITALS: BP 127/54
--- NOTE | 2019-12-18 08:16 | NUR ---
WOUND CARE CONSULT: PT FOLLOWED BY SURGICAL TEAM FOR WOUND TREATMENT. DEFER TO SURGICAL TEAM. DR MCCOY NOTIFIED OF PT READMISSION. RECOMMENDATIONS MADE FOR SKIN PROTECTION. DISCUSSED WITH NURSING STAFF. PT IS ON HUMBERTO ISOFLEX LOW AIRLOSS BED. PT NOTED TO HAVE LOWER EXTREMITY CONTRACTURES. WILL SEE PRN. IN AGREEMENT WITH PLAN OF CARE.
[2019-12-18 08:26] LABS: ALBUMIN 2.5 g/dL (3.4-5.0); BILIRUBIN,TOTAL 3.9 mg/dL (0.2-1.0); CALCIUM, SERUM 9.3 mg/dL (8.5-10.1); CREATININE 1.2 mg/dL (0.6-1.3); MAGNESIUM 2.6 mg/dL (1.8-2.4); PHOSPHORUS 3.1 mg/dL (2.5-4.9); POTASSIUM 4.2 mmol/L (3.5-5.1); TOTAL PROTEIN, SERUM 5.9 g/dL (6.4-8.2)
[2019-12-18] MEDS: LEVETIRACETAM SOL (5 ML) 100 MG/ML UDC PO SCH ×2 (08:38→20:44)
[2019-12-18] MEDS: ASPIRIN 81 MG TAB.CHEW GT SCH (08:38)
[2019-12-18] MEDS: CARBIDOPA/LEVODOPA 25/100 MG 1 UDTAB PO SCH ×3 (08:38→18:24)
[2019-12-18] MEDS: AMLODIPINE BESYLATE 10 MG TABLET GT SCH (08:38)
[2019-12-18] MEDS: PANTOPRAZOLE 40 MG VIAL IV SCH (08:40)
[2019-12-18] MEDS: PROSOURCE / PROSTAT (PYXIS) 30 ML UDC GT SCH (08:41)
[2019-12-18 08:42] LABS: THYROID STIMULATING HORMONE 2.031 uIU/mL (0.358-3.74)
[2019-12-18] MEDS ORDERED: JEVITY 1.2 CAL 1,000 ML BOTTLE GT PRN (14:00)
--- NOTE | 2019-12-18 14:24 | NUR ---
RN NOTE Patient is back from HIDA scan. Per Immanuel ID, patient is to remain NPO to finish scan around 1645 today. Charge nurse made aware. Will admin afternoon meds at this time.
[2019-12-18] MEDS: NYSTATIN TOP POWDER 15 GM BOTTLE TP SCH ×2 (15:02→17:00)
[2019-12-18 16:00] VITALS: BP 115/80
[2019-12-18] MEDS ORDERED: RIVAROXABAN 15 MG TABLET PO SCH (17:00)
--- NOTE | 2019-12-18 18:25 | NUR ---
RN NOTE Patient is back from last portion of HIDA scan. Will admin meds now.
[2019-12-18] MEDS: JEVITY 1.2 CAL 1,000 ML BOTTLE GT PRN (18:33)
--- NOTE | 2019-12-18 19:31 | NUR ---
RN CLOSING NOTE Patient is resting in bed, A/O x0, non-verbal, showing no signs of acute distress or SOB, stable on 2L NC. Tele monitor SR ST 90s-100s with PVCs. IV line in the left hand #22g is clean and intact running NS @ 75mls/hour. HIDA scan completed at 1830. GTF started at 1900 at 20 mls/hour, will endorse to rn night to increase as tolerated. All patient needs met, all due medications given, patient kept clean and dry throughout shift. Bed is in lowest position, side rails x3 in upright position, call light is within reach. Fall safety and aspiration precautions enforced. Will endorse to rn night RN for TONY.
--- NOTE | 2019-12-18 19:36 | NUR ---
MS RN OPENING NOTES PATIENT RECEIVED RESTING BED A/O X 0. ON 2L OF O2 WITH BREATHING EVEN AND UNLABORED, NO SOB NOTED, NO SIGNS OF ACUTE DISTRESS. NO SIGNS OF PAIN OR DISCOMFORT- NO FACIAL GRIMACING NOTED. GTUBE IN PLACE RUNNING JEVITY # 60 ML/HR. IV LOCATED ON L HAND #22 NS @ 75 ML/HR. SAFETY PRECAUTIONS IN PLACE WITH BED IN LOWEST POSITION, CALL LIGHT WITHIN REACH, BREAKS, SIDE RAILS UP. WILL CONTINUE TO MONITOR THROUGHOUT THE SHIFT.
--- NOTE | 2019-12-18 19:43 | NUR ---
MS RN NOTES SEEN BY MD GARCIA
[2019-12-18 20:00] VITALS: BP 123/57
--- NOTE | 2019-12-18 20:27 | NUR ---
MS RN NOTES CONSENT FOR MRCP DONE FROM PATIENT'S SON SANTIAGO
[2019-12-19] MEDS: CEFEPIME 1 GM in IV D5W 50 ML IV SCH (02:42)
[2019-12-19] MEDS: METRONIDAZOLE 500MG/ NS 100ML 500 MG in PREMIX 1 EA IV SCH ×3 (04:37→22:31)
[2019-12-19] MEDS: IV NS 0.9% 1,000 ML IV PRN (04:38)
--- NOTE | 2019-12-19 06:06 | NUR ---
MS RN NOTES LAB CALLED ABOUT PATIENT BLOOD CULTURE RESULTS OF GRAM + CLUSTER COCCI. NOTIFIED NO TOM. NO NEW ORDERS. WILL CONTINUE TO MONITOR.
--- NOTE | 2019-12-19 06:52 | NUR ---
MS RN CLOSING NOTES PATIENT RESTING BED A/O X 0. ON 2L OF O2 WITH BREATHING EVEN AND UNLABORED, NO SOB NOTED, NO SIGNS OF ACUTE DISTRESS. NO SIGNS OF PAIN OR DISCOMFORT- NO FACIAL GRIMACING NOTED. GTUBE IN PLACE RUNNING JEVITY # 60 ML/HR. IV LOCATED ON R HAND #24 NS @ 75 ML/HR. SAFETY PRECAUTIONS IN PLACE WITH BED IN LOWEST POSITION, CALL LIGHT WITHIN REACH, BREAKS, SIDE RAILS UP. PATIENT KEPT CLEAN AND DRY. ALL NEEDS ATTENDED TO. WILL ENDORSE TO ONCOMING SHIFT ABOUT TONY.
--- NOTE | 2019-12-19 07:30 | NUR ---
received pt.in am alert and oriented x0.non verbal.skin warm and dry.vs stable.tube feeding turned off as pt to be npo for mrcp.
[2019-12-19 08:00] VITALS: BP 124/96
[2019-12-19 08:00] LABS: BASOPHILS % (AUTO) 0.2 % (0.0-2.0); EOSINOPHILS % (AUTO) 0.4 % (0.0-6.0); HEMATOCRIT 40 % (33-45); HEMOGLOBIN 12.9 g/dL (11.5-14.8); LYMPHOCYTES # (AUTO) 0.6 /CMM (0.8-4.8); LYMPHOCYTES % (AUTO) 6.3 % (20.0-44.0); MEAN CORPUSCULAR HGB CONC 32 g/dl (31.0-36.0); MEAN CORPUSCULAR VOLUME 96 fL (82-100); MONOCYTES # (AUTO) 0.5 /CMM (0.1-1.30); MONOCYTES % (AUTO) 5.1 % (2.0-12.0); NEUTROPHILS # (AUTO) 8.7 /CMM (1.8-8.9); PLATELET COUNT (AUTO) 116 /CMM (150-450); WHITE BLOOD COUNT (AUTO) 9.8 K/uL (4.3-11.0)
[2019-12-19 08:06] LABS: ALBUMIN 2.3 g/dL (3.4-5.0); BILIRUBIN,TOTAL 1.6 mg/dL (0.2-1.0); CALCIUM, SERUM 8.7 mg/dL (8.5-10.1); CREATININE 0.9 mg/dL (0.6-1.3); MAGNESIUM 2.4 mg/dL (1.8-2.4); PHOSPHORUS 1.6 mg/dL (2.5-4.9); POTASSIUM 3.7 mmol/L (3.5-5.1); TOTAL PROTEIN, SERUM 5.5 g/dL (6.4-8.2)
[2019-12-19] MEDS: ASPIRIN 81 MG TAB.CHEW GT SCH (10:10)
[2019-12-19] MEDS: LEVETIRACETAM SOL (5 ML) 100 MG/ML UDC PO SCH ×2 (10:11→22:30)
[2019-12-19] MEDS: AMLODIPINE BESYLATE 10 MG TABLET GT SCH (10:11)
[2019-12-19] MEDS: CARBIDOPA/LEVODOPA 25/100 MG 1 UDTAB PO SCH ×3 (10:11→17:34)
[2019-12-19] MEDS: PROSOURCE / PROSTAT (PYXIS) 30 ML UDC GT SCH (10:12)
[2019-12-19] MEDS: PANTOPRAZOLE 40 MG VIAL IV SCH (10:14)
[2019-12-19] MEDS: NYSTATIN TOP POWDER 15 GM BOTTLE TP SCH ×2 (10:15→17:35)
[2019-12-19] MEDS ORDERED: NEUTRA PHOS 1 POWD.PACKET GT ONE (10:30)
--- NOTE | 2019-12-19 13:00 | NUR ---
mrcp completed tube feeding turned on.stable.no residual.son calling in to check on pt.
[2019-12-19 16:00] VITALS: BP 124/94
[2019-12-19] MEDS: JEVITY 1.2 CAL 1,000 ML BOTTLE GT PRN ×2 (17:41→22:06)
--- NOTE | 2019-12-19 18:00 | NUR ---
neutra phos given as phos. level low.
[2019-12-19] MEDS ORDERED: FEE PK DOSING 1 MIN EA MC ONE (18:40)
[2019-12-19 20:00] VITALS: BP 155/81
[2019-12-19] MEDS: VANCOMYCIN 1 GM in IV D5W 250 ML IV SCH (22:06)
[2019-12-19] MEDS: MUPIROCIN OINT 2% 22 GM TUBE SCH (22:31)
[2019-12-19] MEDS: CEFEPIME 2 GM in IV D5W 100 ML IV SCH (22:31)
[2019-12-20] MEDS: IV NS 0.9% 1,000 ML IV PRN ×2 (00:11→16:43)
[2019-12-20] MEDS: METRONIDAZOLE 500MG/ NS 100ML 500 MG in PREMIX 1 EA IV SCH ×3 (06:02→20:50)
--- NOTE | 2019-12-20 06:57 | NUR ---
MS RN NOTES AWAKE & NON VERBAL. NOT IN ANY DISTRESS. NO SOB NOTED. NO S/SX OF ANY PAIN OR DISCOMFORT AT THIS TIME. WITH IVF & GTF INFUSING WELL. AM CARE DONE. MONITORED ACCORDINGLY. CALL LIGHT WITHIN REACH. BED IN LOWEST POSITION. SR UP X3 WITH BED ALARM ON FOR SAFETY. WILL ENDORSE TO NEXT SHIFT.
[2019-12-20 07:22] LABS: CALCIUM, SERUM 8.2 mg/dL (8.5-10.1); CREATININE 0.7 mg/dL (0.6-1.3); MAGNESIUM 2.1 mg/dL (1.8-2.4); PHOSPHORUS 1.7 mg/dL (2.5-4.9); POTASSIUM 3.9 mmol/L (3.5-5.1)
[2019-12-20 07:23] LABS: ALBUMIN 2.2 g/dL (3.4-5.0); BILIRUBIN,DIRECT 0.8 mg/dL (0.0-0.2); BILIRUBIN,TOTAL 1.2 mg/dL (0.2-1.0); TOTAL PROTEIN, SERUM 5.3 g/dL (6.4-8.2)
--- NOTE | 2019-12-20 07:26 | NUR ---
MS RN NOTES RECEIVED PATIENT IN BED, ALERT AND AWAKE WITH EYES OPEN. NO S/S OF RESPIRATORY DISTRESS. HOB ELEVATED. ON O2 AT 2L/MIN VIA NC BILLY WELL. NO EVIDENCE OF C/O PAIN NOR DISCOMFORT AT THIS TIME. RIGHT HAND #24 INTACT AND PATENT INFUSING NS AT 75ML/HR BILLY WELL. BED IN LOWEST POSITION, LOCKED. BED ALARM ON. CALL LIGHT WITHIN REACH. FREQUENT VISUAL CHECK DONE.
[2019-12-20 08:00] VITALS: BP 140/90
[2019-12-20] MEDS: PROSOURCE / PROSTAT (PYXIS) 30 ML UDC GT SCH (08:50)
[2019-12-20] MEDS: PANTOPRAZOLE 40 MG VIAL IV SCH (08:50)
[2019-12-20] MEDS: AMLODIPINE BESYLATE 10 MG TABLET GT SCH (08:51)
[2019-12-20] MEDS: NYSTATIN TOP POWDER 15 GM BOTTLE TP SCH ×2 (08:51→16:37)
[2019-12-20] MEDS: ASPIRIN 81 MG TAB.CHEW GT SCH (08:51)
[2019-12-20] MEDS: LEVETIRACETAM SOL (5 ML) 100 MG/ML UDC PO SCH ×2 (08:51→20:51)
[2019-12-20] MEDS: CARBIDOPA/LEVODOPA 25/100 MG 1 UDTAB PO SCH ×3 (08:51→16:37)
[2019-12-20] MEDS: MUPIROCIN OINT 2% 22 GM TUBE SCH ×2 (08:52→20:51)
--- NOTE | 2019-12-20 09:57 | NUR ---
MS RN NOTES PATIENT SEEN AND EXAMINED BY DR. MENJIVAR. PER DR. MENJIVAR TO CALL AND INFORM DR. GARCIA REGARDING SCHEDULE OF MRCP.
--- NOTE | 2019-12-20 09:58 | NUR ---
MS RN NOTES CALLED DR. GARCIA'S OFFICE [facility] LOCATION AND SPOKE TO SHARONA Alvarado/Shashi MD IS CURRENTLY WITH PATIENT AND RELAYED REGARDING SCHEDULE OF MRCP. PER SHARONA SHE WILL GIVE MESSAGE TO MD. AWAITING FOR RESPONSE.
--- NOTE | 2019-12-20 10:55 | NUR ---
MS RN NOTES RECEIVED A CALL FROM JOSUÉ FROM [facility] FOR BLOOD CULTURE RESULT: GRAM POSITIVE COCCI IN CLUSTERS [address] MENJIVAR WITH NNO AT THIS TIME.
[2019-12-20] MEDS: ENOXAPARIN SODIUM 60 MG/0.6 ML DISP.SYRIN SQ SCH (12:11)
[2019-12-20] MEDS: VANCOMYCIN 1 GM in IV D5W 250 ML IV SCH (14:00)
[2019-12-20 16:00] VITALS: BP 133/77
[2019-12-20] MEDS ORDERED: NEUTRA PHOS 1 POWD.PACKET NG ONE (18:00)
--- NOTE | 2019-12-20 18:45 | NUR ---
MS RN NOTES PATIENT RESTING COMFORTABLY IN BED, ASLEEP. AROUSABLE TO VERBAL AND TACTILE STIMULI. NO S/S OF RESPIRATORY DISTRESS. HOB ELEVATED. ON O2 AT 2L/MIN VIA NC BILLY WELL. NO EVIDENCE OF C/O PAIN NOR DISCOMFORT AT THIS TIME. RIGHT HAND #24 INTACT AND PATENT INFUSING NS AT 75ML/HR BILLY WELL. GT INTACT AND PATENT BILLY FEEDING WELL OF JEVITY 1.2 AT 60ML/HR. NO RESIDUAL NOTED. BED IN LOWEST POSITION, LOCKED. BED ALARM ON. CALL LIGHT WITHIN REACH. FREQUENT VISUAL CHECK DONE. IN NO APPARENT DISTRESS.
[2019-12-20 20:00] VITALS: BP 137/90
[2019-12-20] MEDS ORDERED: CEFEPIME 1 GM VIAL ONE (23:27)
[2019-12-20] MEDS: CEFEPIME 2 GM in IV D5W 100 ML IV SCH (23:58)
[2019-12-21] MEDS: JEVITY 1.2 CAL 1,000 ML BOTTLE GT PRN (02:30)
[2019-12-21] MEDS: METRONIDAZOLE 500MG/ NS 100ML 500 MG in PREMIX 1 EA IV SCH ×3 (05:34→21:27)
[2019-12-21 07:17] LABS: BASOPHILS % (AUTO) 0.6 % (0.0-2.0); EOSINOPHILS % (AUTO) 1.5 % (0.0-6.0); HEMATOCRIT 38 % (33-45); HEMOGLOBIN 12.3 g/dL (11.5-14.8); LYMPHOCYTES % (AUTO) 21.2 % (20.0-44.0); MEAN CORPUSCULAR HGB CONC 32 g/dl (31.0-36.0); MEAN CORPUSCULAR VOLUME 95 fL (82-100); MONOCYTES # (AUTO) 0.6 /CMM (0.1-1.30); MONOCYTES % (AUTO) 11.6 % (2.0-12.0); NEUTROPHILS # (AUTO) 3.2 /CMM (1.8-8.9); NEUTROPHILS % (AUTO) 65.1 % (43.0-81.0); PLATELET COUNT (AUTO) 124 /CMM (150-450); RED BLOOD CELL COUNT(AUTO) 4.03 MIL/uL (4.0-5.2); WHITE BLOOD COUNT (AUTO) 4.9 K/uL (4.3-11.0)
--- NOTE | 2019-12-21 07:30 | NUR ---
MS RN NOTES RECEIVED PATIENT IN BED, ASLEEP, AROUSABLE TO VERBAL AND TACTILE STIMULI. NO S/S OF RESPIRATORY DISTRESS. HOB ELEVATED. ON O2 AT 2L/MIN VIA NC BILLY WELL. NO EVIDENCE OF C/O PAIN NOR DISCOMFORT AT THIS TIME. RIGHT HAND #24 INTACT AND PATENT INFUSING NS AT 75ML/HR BILLY WELL. BED IN LOWEST POSITION, LOCKED. BED ALARM ON. CALL LIGHT WITHIN REACH.
[2019-12-21 08:00] VITALS: BP 130/76
[2019-12-21 08:25] LABS: ALBUMIN 2.1 g/dL (3.4-5.0); BILIRUBIN,TOTAL 0.9 mg/dL (0.2-1.0); CALCIUM, SERUM 8.3 mg/dL (8.5-10.1); CREATININE 0.6 mg/dL (0.6-1.3); MAGNESIUM 1.8 mg/dL (1.8-2.4); PHOSPHORUS 2.3 mg/dL (2.5-4.9); POTASSIUM 3.8 mmol/L (3.5-5.1); TOTAL PROTEIN, SERUM 5.1 g/dL (6.4-8.2)
[2019-12-21] MEDS: VANCOMYCIN 1 GM in IV D5W 250 ML IV SCH (09:00)
[2019-12-21] MEDS: LEVETIRACETAM SOL (5 ML) 100 MG/ML UDC PO SCH ×2 (09:47→21:28)
[2019-12-21] MEDS: PANTOPRAZOLE 40 MG VIAL IV SCH (09:47)
[2019-12-21] MEDS: AMLODIPINE BESYLATE 10 MG TABLET GT SCH (09:48)
[2019-12-21] MEDS: ASPIRIN 81 MG TAB.CHEW GT SCH (09:48)
[2019-12-21] MEDS: CARBIDOPA/LEVODOPA 25/100 MG 1 UDTAB PO SCH ×3 (09:48→16:41)
[2019-12-21] MEDS: NYSTATIN TOP POWDER 15 GM BOTTLE TP SCH ×2 (09:49→16:42)
[2019-12-21] MEDS: PROSOURCE / PROSTAT (PYXIS) 30 ML UDC GT SCH (09:56)
[2019-12-21] MEDS: MUPIROCIN OINT 2% 22 GM TUBE SCH ×2 (09:56→21:28)
[2019-12-21] MEDS ORDERED: K PHOS NEUTRAL 250 MG TABLET GT ONE (12:30)
[2019-12-21] MEDS: ENOXAPARIN SODIUM 60 MG/0.6 ML DISP.SYRIN SQ SCH ×2 (12:45)
[2019-12-21 16:00] VITALS: BP 132/78
--- NOTE | 2019-12-21 19:10 | NUR ---
MS RN OPENING NOTES: RECEIVED [facility] BED AWAKE, NON- VERBAL. NO SOB NOTED. NOT IN PAIN. BED ALARM ON. BED IN LOWEST AND LOCKED POSITION. WITH GT FEEDING RUNNING AT 55ML/HOUR. WITH O2 AT 2L/MIN. CONSENT FOR ERCP TOMORROW ALREADY SIGNED BY THE SON AND ATTACHED TO THE CHART. NPO POST [place], SIGN ON THE DOOR PLACE, MARK ESCOBAR AWARE.
--- NOTE | 2019-12-21 19:39 | NUR ---
MS RN NOTES PATIENT RESTING COMFORTABLY IN BED. NO S/S OF RESPIRATORY DISTRESS. HOB ELEVATED. ON O2 AT 2L/MIN VIA NC BILLY WELL. NO EVIDENCE OF C/O PAIN NOR DISCOMFORT AT THIS TIME. ON JEVITY 1.2 INFUSING AT 55ML/HR BILLY WELL. NO RESIDUAL OBSERVED. RIGHT HAND SL #24 INTACT AND PATENT. BED IN LOWEST POSITION, LOCKED. BED ALARM ON. CALL LIGHT WITHIN REACH.
[2019-12-21 20:00] VITALS: BP 138/78
--- NOTE | 2019-12-21 20:03 | NUR ---
PATIENT'S SON SANTIAGO CALLED AND MADE AWARE OF THE PROCEDURE TOMORROW, WILL ENDORSE TO THE NEXT SHIFT RN TO GIVE UPDATES AFTER THE PROCEDURE.
--- NOTE | 2019-12-21 21:43 | NUR ---
GT CLOGGED, GT TUBING MILKED AND REMOVED THE CLOG, FLUSHED WITH WATER, FEEDING CONTINUED. HOB ELEVATED AT ALL TIMES.
--- NOTE | 2019-12-21 22:35 | NUR ---
PATIENT WILL BE NPO POST MN, GT FEEDING WILL BE TURNED OFF AT 12 MIDNIGHT, NO IVF ORDER, NOTIFIED STRATEGIC CONSULTANT TOM SAEED, NO ORDERS MADE.
[2019-12-21] MEDS: CEFEPIME 2 GM in IV D5W 100 ML IV SCH (23:00)
--- NOTE | 2019-12-22 | NUR ---
LOVENOX HELD. PATIENT IS HAVING SURGERY.
--- NOTE | 2019-12-22 | NUR ---
PATIENT IS NOW NPO, GT FEEDING STOPPED, NO RESIDUAL NOTED. GT FLUSHED WITH WATER AND CLAMPED. GT DRESSING IS CLEAN AND DRY,INTACT. HOB ELEVATED AT 35 DEGREES. BED IN LOWEST AND LOCKED POSITION. BED ALARM ON.
--- NOTE | 2019-12-22 00:06 | NUR ---
ROJAS-CARE DONE. CLEANSED SACRUM,PERINEUM AND ABDOMINAL FOLDS MASD WITH NS, PAT DRIED AND APPLIED Z-GUARD. ON BILATERAL BREASTS WITH VERY LITTLE RASHES- CLEANSED WITH NS, PAT DRIED, AND APPLIED NYSTATIN POWDER. TURNED TO THE SIDE. BILATERAL HEELS OFFLOADED WITH PILLOWS, AND SACRAL OFFLOADED. SHEET PLACED BETWEEN THE CONTRACTED KNEES.
[2019-12-22] MEDS: METRONIDAZOLE 500MG/ NS 100ML 500 MG in PREMIX 1 EA IV SCH ×2 (04:56→12:29)
--- NOTE | 2019-12-22 06:36 | NUR ---
MS RN CLOSING NOTES: PATIENT IN BED, AWAKE, CONFUSED, NON-VERBAL, HOB ELEVATED AT ALL TIMES. GT CLAMPED. NPO. NO SOB NOTED. NOT IN PAIN. BED ALARM ON. BED IN LOWEST AND LOCKED POSITION.
[2019-12-22 06:40] LABS: BASOPHILS % (AUTO) 0.7 % (0.0-2.0); EOSINOPHILS % (AUTO) 1.9 % (0.0-6.0); HEMATOCRIT 42 % (33-45); HEMOGLOBIN 13.2 g/dL (11.5-14.8); LYMPHOCYTES # (AUTO) 1.6 /CMM (0.8-4.8); LYMPHOCYTES % (AUTO) 23.7 % (20.0-44.0); MEAN CORPUSCULAR HGB CONC 32 g/dl (31.0-36.0); MEAN CORPUSCULAR VOLUME 96 fL (82-100); MONOCYTES # (AUTO) 0.7 /CMM (0.1-1.30); MONOCYTES % (AUTO) 9.9 % (2.0-12.0); NEUTROPHILS # (AUTO) 4.3 /CMM (1.8-8.9); NEUTROPHILS % (AUTO) 63.8 % (43.0-81.0); PLATELET COUNT (AUTO) 148 /CMM (150-450); RED BLOOD CELL COUNT(AUTO) 4.36 MIL/uL (4.0-5.2); WHITE BLOOD COUNT (AUTO) 6.8 K/uL (4.3-11.0)
[2019-12-22 07:15] LABS: ALBUMIN 2.4 g/dL (3.4-5.0); BILIRUBIN,DIRECT 0.5 mg/dL (0.0-0.2); BILIRUBIN,TOTAL 0.9 mg/dL (0.2-1.0); CALCIUM, SERUM 9.3 mg/dL (8.5-10.1); CREATININE 0.7 mg/dL (0.6-1.3); MAGNESIUM 1.9 mg/dL (1.8-2.4); PHOSPHORUS 3.3 mg/dL (2.5-4.9); POTASSIUM 4.4 mmol/L (3.5-5.1); TOTAL PROTEIN, SERUM 5.6 g/dL (6.4-8.2)
--- NOTE | 2019-12-22 08:00 | NUR ---
MS RN OPENING NOTES Received Patient asleep and resting in bed. Alert, non-verbal. VS stable with no acute distress. Breathing even and unlabored on 2LPM via NC with no respiratory distress. Denies pain. No signs and symptoms of pain. 24g PIV on Left Hand clean, intact, patent and flushing well. Gtube in place and clamped. Safety precautions in place. Bed locked and set to lowest position with side rails x 2 up. All needs rendered at this time. Call light within reach. Will continue to monitor.
[2019-12-22 08:06] VITALS: BP 148/90
[2019-12-22] MEDS: AMLODIPINE BESYLATE 10 MG TABLET GT SCH (09:00)
[2019-12-22] MEDS: ASPIRIN 81 MG TAB.CHEW GT SCH (09:00)
[2019-12-22] MEDS: CARBIDOPA/LEVODOPA 25/100 MG 1 UDTAB PO SCH ×3 (09:00→16:47)
[2019-12-22] MEDS: LEVETIRACETAM SOL (5 ML) 100 MG/ML UDC PO SCH (09:00)
[2019-12-22] MEDS: PROSOURCE / PROSTAT (PYXIS) 30 ML UDC GT SCH (09:00)
[2019-12-22] MEDS: NYSTATIN TOP POWDER 15 GM BOTTLE TP SCH ×2 (09:48→16:48)
[2019-12-22] MEDS: MUPIROCIN OINT 2% 22 GM TUBE SCH (09:48)
[2019-12-22] MEDS: PANTOPRAZOLE 40 MG VIAL IV SCH (10:00)
--- NOTE | 2019-12-22 11:20 | NUR ---
MS RN NOTES Per Papo JIM, may resume tube feeding orders and resume Lovenox. Orders read back, noted and carried out. Patient in stable condition. Will continue to monitor.
[2019-12-22] MEDS: ENOXAPARIN SODIUM 60 MG/0.6 ML DISP.SYRIN SQ SCH ×2 (12:28)
[2019-12-22 16:00] VITALS: BP 129/78
--- NOTE | 2019-12-22 19:45 | NUR ---
MS RN CLOSING NOTES Patient asleep and resting in bed. Alert, non-verbal. VS stable with no acute distress. Breathing even and unlabored on 2LPM via NC with no respiratory distress. Denies pain. No signs and symptoms of pain. 24g PIV on Left Hand clean, intact, patent and flushing well. Gtube in place and patent with Jevity 1.2 at 55ml/hr. Skin assessment pictures taken and placed in chart. Safety precautions in place. Bed locked and set to lowest position with side rails x 2 up. All needs rendered at this time. Call light within reach. Will endorse discharge plan to oncoming shift.
--- NOTE | 2019-12-22 20:08 | NUR ---
MS BANQUET STEWARDESS/TRANSFER NOTES Patient discharged to [facility] at this time. Alert, non-verbal. VS stable with no acute distress. Breathing even and unlabored on 2LPM via NC with no respiratory distress. Denies pain. No signs and symptoms of pain. 24g PIV on Left Hand clean, intact, patent and flushing well. Gtube in place and patent. Skin assessment pictures taken and placed in chart. Medication reconciliation and discharge orders reviewed and explained to Piero (son). Son verbalized understanding. No belongings with Patient. Patient picked up by Transport.
[2019-12-22] MEDS ORDERED: METRONIDAZOLE 500 MG TABLET GT SCH (21:00)
== END 2019-12-23 | disposition short-term general hospital (02) | DRG 871 ==
LOC: ER 19:14 → TELE 21:18 → MED 12-18 13:30 → MEDSG2 12-19 22:00
PROVIDERS: ADMIT Nurse Practitioner Acute Care
DX: A41.9 Sepsis, unspecified organism (principal); G93.41 Metabolic encephalopathy; N17.0 Acute kidney failure with tubular necrosis; K83.09 Other cholangitis; K80.62 Calculus of gallbladder and bile duct with acute cholecystitis without obstruction; E87.2 Acidosis; G40.909 Epilepsy, unspecified, not intractable, without status epilepticus; G20 Parkinson's disease; F02.80 Dementia in other diseases classified elsewhere, unspecified severity, without behavioral disturbance, psychotic disturbance, mood disturbance, and anxiety; D63.8 Anemia in other chronic diseases classified elsewhere; E78.5 Hyperlipidemia, unspecified; I10 Essential (primary) hypertension; K59.00 Constipation, unspecified; E80.6 Other disorders of bilirubin metabolism; R74.0 Nonspecific elevation of levels of transaminase and lactic acid dehydrogenase [LDH]; Z86.73 Personal history of transient ischemic attack (TIA), and cerebral infarction without residual deficits; M81.0 Age-related osteoporosis without current pathological fracture; L98.8 Other specified disorders of the skin and subcutaneous tissue; L30.4 Erythema intertrigo; I25.2 Old myocardial infarction; Z88.0 Allergy status to penicillin; Z22.322 Carrier or suspected carrier of Methicillin resistant Staphylococcus aureus; Z87.440 Personal history of urinary (tract) infections; Z79.82 Long term (current) use of aspirin; Z79.02 Long term (current) use of antithrombotics/antiplatelets; Z87.01 Personal history of pneumonia (recurrent); Z96.659 Presence of unspecified artificial knee joint
CPT/HCPCS: 36415; 71045-TC; 74181-TC; 76705-TC; 78226; 80048-TC; 80053-TC; 80061-TC; 80076-TC; 80202-TC; 81000-TC; 83540-TC; 83605-TC; 83735-TC; 83880; 84100-TC; 84443-TC; 84484-TC; 85025-TC; 85730-TC; 86850-TC; 87040-TC; 87081-TC; 87086-TC; 93307-TC; 93970-TC; A4216; A6403; A9537; C9113; G0378; J0692; J1650; J1953; J2185; J3370; J7030; J7060

== ENCOUNTER 2021-06-06 09:38 | Inpatient (IN) | payer MEDICARE, OTHER ==
[~2021-06-06] VITALS: Ht 167.6 cm; Wt 85.3 kg
[~2021-06-06 09:38] MED LIST changes: -ACET-868 PO; -ALBU2.5V38 IH; +AMIN30LI2 GT; -AMIN30LI27 PO; +AMLO-213 GT; -AMLO10TA4 PO; -ARIP10TA9 PO; +ASCO500C6 GT; +ASPI-1169 GT; -ASPI-1169 PO; -ATOR80TA PO; -CALC500T63 PO; -CLON0.1T PO; -CLOP75TA15 PO; +CRAN3875 GT; -CRAN3875 PO; +CRAN425C6 GT; -CRAN425C6 PO; -DOCU-270 PO; -DONE5TAB7 PO; -ERGO5000 PO; -IPRA0.2S9 IH; -LACT1CAP7 PO; +LEVE1000 GT; -LEVE100023 PO; -MAG30ORA PO; -MAGN400O6 PO; -MULT-447 PO; +MULT-754 GT; -PANT40TA2 PO; -POLY17PO4 PO; -SENN8.6C5 PO; -URSO250T11 PO; -VALS80TA2 PO
--- NOTE | 2021-06-06 09:47 | NUR ---
PT SEEN AND EXAMINED BY .
--- NOTE | 2021-06-06 10:20 | NUR ---
IV LINE ESTABLISHED G20 R HAND.
[2021-06-06 10:39] LABS: BASOPHILS % (AUTO) 0.1 % (0.0-2.0); HEMATOCRIT 43 % (33-45); HEMOGLOBIN 13.9 g/dL (11.5-14.8); LYMPHOCYTES # (AUTO) 0.4 K/uL (0.8-4.8); MEAN CORPUSCULAR HGB CONC 33 g/dl (31.0-36.0); MEAN CORPUSCULAR VOLUME 96 fL (82-100); MONOCYTES # (AUTO) 0.6 K/uL (0.1-1.30); MONOCYTES % (AUTO) 2.9 % (2.0-12.0); NEUTROPHILS # (AUTO) 20.3 K/uL (1.8-8.9); PLATELET COUNT (AUTO) 76 K/uL (150-450); RED BLOOD CELL COUNT(AUTO) 4.46 MIL/uL (4.0-5.2); WHITE BLOOD COUNT (AUTO) 21.4 K/uL (4.3-11.0)
[2021-06-06] MEDS ORDERED: ERGO2500 GT (10:39)
[2021-06-06] MEDS ORDERED: ARIP10TA9 GT (10:39)
[2021-06-06] MEDS ORDERED: METO25TA6 GT (10:39)
[2021-06-06] MEDS ORDERED: IPRA3AMP22 IH (10:39)
[2021-06-06] MEDS ORDERED: CALC500T13 GT (10:39)
[2021-06-06] MEDS ORDERED: OMEP20CA15 GT (10:39)
[2021-06-06] MEDS ORDERED: ACET325T53 GT (10:39)
[2021-06-06] MEDS ORDERED: APIX2.5T GT (10:39)
[2021-06-06 11:01] LABS: CALCIUM, SERUM 9.8 mg/dL (8.5-10.1); CARBON DIOXIDE 19 mmol/L (21-32); CHLORIDE 98 mmol/L (98-107); CREATININE 2.4 mg/dL (0.6-1.3); GLUCOSE 102 mg/dL (74-106); POTASSIUM 3.8 mmol/L (3.5-5.1); SODIUM SERUM 136 mmol/L (136-145); UREA NITROGEN, BLOOD 53 mg/dL (7-18)
[2021-06-06 11:13] LABS: ALANINE AMINOTRANSFERASE 124 U/L (12-78); ALBUMIN 2.5 g/dL (3.4-5.0); ALKALINE PHOSPHATASE 268 U/L (46-116); ASPARTATE AMINOTRANSFERASE 110 U/L (15-37); BILIRUBIN,DIRECT 3.9 mg/dL (0.0-0.2); BILIRUBIN,TOTAL 4.7 mg/dL (0.2-1.0)
--- NOTE | 2021-06-06 11:18 | NUR ---
COVID ANTIGEN SWAB DONE AND SENT TO THE LAB
[2021-06-06] MEDS ORDERED: VANCOMYCIN 1 GM in IV D5W 250 ML IV ONE (11:30)
[2021-06-06] MEDS ORDERED: CEFEPIME 1 GM in IV D5W 50 ML IV ONE (11:30)
[2021-06-06] MEDS ORDERED: IV NS 0.9% 1,000 ML BAG IV ONE (12:00)
--- NOTE | 2021-06-06 12:20 | NUR ---
[facility] [phone].
--- NOTE | 2021-06-06 12:36 | NUR ---
MIDLINE RN AT BEDSIDE.
[2021-06-06 16:08] LABS: BAND % (MANUAL) 12 % (0.0-5.0); LYMPHOCYTES % (MANUAL) 5 % (16-48); MONOCYTES % (MANUAL) 8 % (0-11.0); NEUTROPHILS % (MANUAL) 75 (42-76)
[2021-06-06] MEDS ORDERED: Z GUARD REMEDY 4 OZ OINT TP PRN (18:00)
[2021-06-06] MEDS ORDERED: MAG HYDROX/AL HYDROX/SIMETH 30 ML UDC GT PRN (18:00)
[2021-06-06] MEDS ORDERED: IV NS 0.9% 1,000 ML IV PRN (18:00)
[2021-06-06] MEDS ORDERED: ZOLPIDEM TARTRATE 5 MG TABLET GT PRN (18:00)
[2021-06-06] MEDS ORDERED: MAGNESIUM HYDROXIDE 30 ML UDC GT PRN (18:00)
[2021-06-06] MEDS ORDERED: ONDANSETRON HCL/PF 4 MG/2 ML VIAL IVP PRN (18:00)
[2021-06-06] MEDS ORDERED: ACETAMINOPHEN 325 MG TABLET MC PRN (18:00)
--- NOTE | 2021-06-06 18:29 | NUR ---
ROOM 103
[2021-06-06 18:52] VITALS: BP_SYST 74
[2021-06-06 19:11] VITALS: BP_DIAS 52
--- NOTE | 2021-06-06 19:46 | NUR ---
CALLED OFFICE OF DR CHAPARRO CADET [phone]
--- NOTE | 2021-06-06 20:23 | NUR ---
[facility] NOT DISPATCHER CHIEF COAL SLURRY'S CASE PER KRISTY
--- NOTE | 2021-06-06 20:35 | NUR ---
[facility] CALLED. SPOKE WITH MARS. CASE# [id number]. [facility] WILL NOT CONTINUE WITH CASE.
--- NOTE | 2021-06-06 20:42 | NUR ---
SON- [facility] PATEL NOTIFIED OF .
[2021-06-06] MEDS ORDERED: LEVETIRACETAM SOL (5 ML) 100 MG/ML UDC GT SCH (21:00)
[2021-06-06] MEDS ORDERED: ARIPIPRAZOLE 5 MG TABLET GT SCH (22:00)
--- NOTE | 2021-06-06 22:15 | NUR ---
pt taken to [facility] with security
[2021-06-07] MEDS ORDERED: CEFEPIME 1 GM in IV D5W 50 ML IV SCH
[2021-06-07] MEDS ORDERED: PANTOPRAZOLE 40 MG/PACK PACK GT SCH (07:30)
[2021-06-07] MEDS ORDERED: ASCORBIC ACID 500 MG TABLET GT SCH (09:00)
[2021-06-07] MEDS ORDERED: Medication Not On Formulary EA (Ipratropium/Albuterol Sulfate (Ipratr-Albuterol 0.5-3 Mg IH SCH (09:00)
[2021-06-07] MEDS ORDERED: METOPROLOL TARTRATE 25 MG TABLET GT SCH (09:00)
[2021-06-07] MEDS ORDERED: ERGOCALCIFEROL (VITAMIN D2) 8,000 UNIT/ML GT SCH (09:00)
[2021-06-07] MEDS ORDERED: PROSOURCE / PROSTAT (PYXIS) 30 ML UDC GT SCH (09:00)
[2021-06-07] MEDS ORDERED: APIXABAN 2.5 MG TABLET GT SCH (09:00)
[2021-06-07] MEDS ORDERED: ALBUTEROL FS 2.5 MG/0.5 ML VIAL.NEB NEB SCH (09:00)
[2021-06-07] MEDS ORDERED: MULTIVITAMINS,THERAGRAN 1 UDTAB TABLET GT SCH (09:00)
[2021-06-07] MEDS ORDERED: CALCIUM CARBONATE 500 MG TAB.CHEW GT SCH (09:00)
[2021-06-07] MEDS ORDERED: ASPIRIN 81 MG TAB.CHEW GT SCH (09:00)
[2021-06-07] MEDS ORDERED: Medication Not On Formulary EA (Cran/Vitc/Mannose/Inulin/Brom (Uti-Stat Liquid) 3,875 MG GT SCH ×2 (09:00)
[2021-06-07] MEDS ORDERED: CRANBERRY EXT/C/L. SPOROGENES 405 MG/TAB TABLET GT SCH (09:00)
[2021-06-07] MEDS ORDERED: CARBIDOPA/LEVODOPA 25/100 MG 1 UDTAB GT SCH (09:00)
[2021-06-07] MEDS ORDERED: ACETAMINOPHEN 325 MG TABLET MC SCH (09:00)
[2021-06-07] MEDS ORDERED: AMLODIPINE BESYLATE 10 MG TABLET GT SCH (09:00)
[2021-06-07] MEDS ORDERED: IPRATROPIUM NEB FS 0.5 MG/2.5 ML AMPUL.NEB IH SCH (09:00)
== END 2021-06-06 20:26 | DRG 871 ==
LOC: ER 10:11 → TRANSITION 15:56 → TELE1 18:47 → TRANSITION 18:47 → UNDODISIN 20:26
PROVIDERS: ADMIT Student in an Organized Health Care Education/Training Program; ATTEND Student in an Organized Health Care Education/Training Program
PROC: 05H933Z Insertion of Infusion Device into Right Brachial Vein, Percutaneous Approach (ICD-10-PCS; principal; 2021-06-06)
DX: A41.9 Sepsis, unspecified organism (principal); J96.01 Acute respiratory failure with hypoxia; N17.0 Acute kidney failure with tubular necrosis; J18.9 Pneumonia, unspecified organism; I69.354 Hemiplegia and hemiparesis following cerebral infarction affecting left non-dominant side; N39.0 Urinary tract infection, site not specified; E44.0 Moderate protein-calorie malnutrition; R65.20 Severe sepsis without septic shock; Z20.822 Contact with and (suspected) exposure to COVID-19; F02.80 Dementia in other diseases classified elsewhere, unspecified severity, without behavioral disturbance, psychotic disturbance, mood disturbance, and anxiety; G20 Parkinson's disease; E78.5 Hyperlipidemia, unspecified; M81.0 Age-related osteoporosis without current pathological fracture; Z66 Do not resuscitate; G25.81 Restless legs syndrome; Z96.659 Presence of unspecified artificial knee joint; Z88.0 Allergy status to penicillin; Z79.82 Long term (current) use of aspirin; Z79.899 Other long term (current) drug therapy; Z79.01 Long term (current) use of anticoagulants; I11.0 Hypertensive heart disease with heart failure; I50.9 Heart failure, unspecified; D69.6 Thrombocytopenia, unspecified; R74.01 Elevation of levels of liver transaminase levels
CPT/HCPCS: 36415; 71045-TC; 80048-TC; 80076-TC; 83605-TC; 83880; 84484-TC; 85025-TC; 87040-TC; 87081-TC; 87186-TC; C9803; G0378; J0692; J1953; J3370; J7030; J7060